=== PATIENT | female | born 1980 | race Caucasian/White ===

== ENCOUNTER → 2021-03-28 12:48 | Outpatient (CLI) | payer BC, SELFPAY ==
--- NOTE | ~2021-03-28 | MM_ITS ---
EXAMINATION: MM screening ruby BI w ruchi HISTORY: Screening TECHNIQUE: Craniocaudal and mediolateral oblique 3-D tomosynthesis images were obtained and synthetic 2-D images were generated. CAD analysis was submitted and interpreted. COMPARISON: No prior mammogram is available for comparison at this institution. BREAST PARENCHYMAL COMPOSITION: Breast composed of scattered areas of fibroglandular density. FINDINGS: There is a 1 cm mass in the outer aspect of the right breast, best seen on CC view. There i s a focal asymmetry centrally in the left breast on CC view. IMPRESSION: 1. Right breast mass, lateral aspect on CC view measuring 1 cm. Left breast asymmetry centrally on CC view. 2. Additional mammographic views and possible breast ultrasound are recommended. BI-RADS Category 0: Incomplete: Needs additional imaging evaluation. Reviewed, dictated and finalized at location A. IMPRESSION: 1. Right breast mass, lateral aspect on CC view measuring 1 cm. Left breast asy mmetry centrally on CC view. 2. Additional mammographic views and possible breast ultrasound are recommended . BI-RADS Category 0: Incomplete: Needs additional imaging evaluation.
== END ==
PROVIDERS: Visit Provider Nurse Practitioner
DX: Z12.31 Encounter for screening mammogram for malignant neoplasm of breast (principal); R92.8 Other abnormal and inconclusive findings on diagnostic imaging of breast
CPT/HCPCS: 77063; 77067

== ENCOUNTER → 2021-04-24 09:25 | Outpatient (CLI) | payer BC, SELFPAY ==
--- NOTE | ~2021-04-24 | MMUS_ITS ---
EXAMINATION: MM diagnostic ruby BI w ruchi, US breast BI complete HISTORY: 1 cm mass reported in upper outer aspect of right breast, best demonstrated on craniocaudal view of 03/28/2021 screening mammogram. Focal central asymmetry of left breast on craniocaudal view of 03/28/2021. TECHNIQUE: Additional 3-D tomosynthesis images of both breasts were performed and synthetic 2-D image s were generated. CAD analysis was submitted and interpreted. High resolution complete bilateral divine st ultrasound including all 4 quadrants and subareolar areas was performed. COMPARISON: 03/28/2021 bilateral digital screening mammogram FINDINGS: MAMMOGRAPHIC FINDINGS: No suspicious reproducible mass of either breast is evident. No architectural distortion, malignant c alcification, skin thickening or retraction is detected. ULTRASOUND: Right breast: 12:00 5 cm from nipple: 4.1 x 6.9 x 6.9 mm cyst 9:00 7 cm from nipple: 4.9 x 4.8 x 5.8 mm cyst with through transmission posterior enhancement 11:00 4 cm from nipple: 12 x 7 x 10 mm circumscribed multilocular cyst without internal vascularity o r posterior shadowing Left breast: 3-4:00 8 cm from nipple: There is an irregular and typed parallel hypoechoic approximately 3.8 x 3.4 mm lesion with some posterior shadowing. Ultrasound-guided biopsy is recommended. 4:00 6 cm from nipple: Complex mixed cystic and solid mass measuring 11 x 6 x 14 mm, with internal va scularity. Ultrasound-guided biopsy is recommended. IMPRESSION: 1. Suspicious masses of the left breast at 3-4:00 8 cm from nipple and 4:00 6 cm from nipple 2. Ultrasound-guided biopsy of these 2 left breast lesions is recommended BI-RADS category 4, suspicious findings. Dr. Stanford telephoned the report and ultrasound guided biopsy recommendations for the left breast to Dr Alice Arroyo's Nurse Kelly on 04/24/2021 at 1105 hours Reviewed, dictated and finalized at location A. IMPRESSION: 1. Suspicious masses of the left breast at 3-4:00 8 cm from nipple and 4:00 6 c m from nipple 2. Ultrasound-guided biopsy of these 2 left breast lesions is recommended BI-RADS category 4, suspicious findings. Dr. Stanford telephoned the report and ultrasound guided biopsy recommendations for the left breast to Dr. Arroyo's Nurse Kelly on 04/24/2021 at 1105 hours
== END ==
PROVIDERS: PCP Nurse Practitioner Family; Visit Provider Obstetrics & Gynecology Gynecology
DX: R92.8 Other abnormal and inconclusive findings on diagnostic imaging of breast (principal)
CPT/HCPCS: 76641; 77062; 77066; G0279

== ENCOUNTER 2021-05-08 09:42 | Outpatient (CLI) | payer BC, SELFPAY ==
--- NOTE | ~2021-05-08 | MM_ITS ---
MM post biopsy invasive LT DATE: 05/08/2021 11:08 INDICATION: Post ultrasound-guided biopsy mammogram TECHNIQUE: Digital ML and craniocaudal exposures following ultrasound-guided biopsy of 4:00 breast ma ss COMPARISON: 05/08/2021 ultrasound-guided left breast biopsy FINDINGS: A ribbon mammographic marker is present not far from the midline in the lower outer quadran t of left breast. IMPRESSION: Status post ultrasound-guided biopsy of left breast 4:00 lesion Reviewed, dictated and finalized at [facility]. Reviewed, dictated and finalized at location A. OR T[employer]RARIAN
--- NOTE | ~2021-05-08 | US_ITS ---
EXAMINATION: US GUIDED NEEDLE BIOPSY DATE: 05/08/2021 10:49 DROP FORGE HAND INDICATION: 4:00 complex left breast mass TECHNIQUE AND FINDINGS: Initial scanning confirmed the presence of an up to approximately 6.7 x 13 mm complex mass with internal vascularity at 4:00 6 cm from nipple. The previous reported irregular hypoechoic area at 3:00 is not confirmed on the sixth examination. The risks and potential benefits of the procedure were discussed with the patient, and written inform ed consent was obtained. Timeout procedure was performed. After sterile preparation of the left breas t, 1% lidocaine was utilized for local anesthesia. A 14G spring-loaded biopsy gun needle was advanced to the edge of the region of interest from a later al approach utilizing sonographic guidance. A total of three tissue core samples were obtained throu gh the lesion. An Inrad tissue marker clip was then placed at the biopsy site. Hemostasis was achiev ed. A sterile bandage was applied. The patient tolerated procedure well and there was no evidence of immediate complication. The patien t was given verbal instructions prior to departing from the department. A two view mammogram was perf ormed to document tissue marker clip placement. The tissue samples were submitted to surgical patholo gy for histologic analysis. IMPRESSION: 1. Successful ultrasound guided biopsy of complex left 4:00 breast mass with biopsy marker placement . Please refer to pathology report for histologic analysis. Reviewed, dictated and finalized at [facility]. Reviewed, dictated and finalized at location A. FORGE HAND IMPRESSION: 1. Successful ultrasound guided biopsy of complex left 4:00 breast mass with b iopsy marker placement. Please refer to pathology report for histologic analysi s.
== END 2021-05-08 09:43 | disposition home or self-care (01) ==
LOC: ANHIMG 09:47
PROVIDERS: PCP Nurse Practitioner Family; Visit Provider Surgery
DX: N63.20 Unspecified lump in the left breast, unspecified quadrant (principal); R92.8 Other abnormal and inconclusive findings on diagnostic imaging of breast
CPT/HCPCS: 19083; 88305; A4648

== ENCOUNTER → 2022-04-19 14:58 | Outpatient (CLI) | payer BC, SELFPAY ==
--- NOTE | ~2022-04-19 | XR_ITS ---
EXAMINATION: XR ankle RT min 3V, XR heel RT min 2V, XR foot RT min 3V DATE: 04/19/2022 15:32 INDICATION: Right heel pain TECHNIQUE: 1. Anteroposterior, mortise, additional oblique and lateral view of the affected ankle were obtained. 2. Dorsoplantar, two oblique and lateral views of the affected foot were obtained. 3. Lateral and axial views of the right calcaneus were obtained. COMPARISON: None. FINDINGS: Alignment of the right foot and ankle is normal. No fracture or osteochondral lesion. Joint spaces ar e well maintained. Moderate sized plantar calcaneal spur. No ankle joint effusion. The soft tissues a re unremarkable. IMPRESSION: 1. Moderate-sized right plantar calcaneal spur. Otherwise unremarkable radiographs of the right foot, ankle and calcaneus. Reviewed, dictated and finalized at location A. IMPRESSION: 1. Moderate-sized right plantar calcaneal spur. Otherwise unremarkable radiogra phs of the right foot, ankle and calcaneus. IMPRESSION: 1. Moderate-sized right plantar calcaneal spur. Otherwise unremarkable radiogra phs of the right foot, ankle and calcaneus.
== END ==
PROVIDERS: PCP Nurse Practitioner Family; Visit Provider Nurse Practitioner Family
DX: M77.31 Calcaneal spur, right foot (principal); M79.671 Pain in right foot
CPT/HCPCS: 73610; 73630; 73650

== ENCOUNTER 2022-09-13 09:45 | Emergency (ER) | payer BC, SELFPAY ==
--- NOTE | ~2022-09-13 | XR_ITS ---
EXAMINATION: XR abdomen/kub 1V DATE: 09/13/2022 11:47 INDICATION: Left kidney stone. TECHNIQUE: A supine view of the abdomen on 2 radiographs was obtained. COMPARISON: CT abdomen and pelvis 09/13/2022 FINDINGS: There are no dilated loops of bowel. Surgical clips in the right upper quadrant are likely from cholecystectomy. There are phleboliths in the pelvis. There is a 5 mm stone or pair of stones in proximal left ureter at L2-L3. IMPRESSION: 1. 5 mm stone or pair of stones in proximal left ureter at L2-L3. Reviewed, dictated and finalized at location A.
--- NOTE | ~2022-09-13 | CT_ITS ---
Non-contrast CT scan of the Abdomen and Pelvis Clinical indication: Left flank pain Technique: 2.5 mm axial scans were obtained through the abdomen and pelvis without intravenous or or al contrast. Dose reduction technique was used on this scan by utilizing automated exposure control a nd iterative reconstruction technique. The dose-length product (DLP) was 1549.38 mGy-cm. COMPARISON: 02/19/2014 Findings: Images through the lung bases reveal no abnormalities. There is a 5 mm stone in the proximal left ureter, with mild left hydronephrosis. No right renal or r ight ureteral stone. No right hydronephrosis. The liver, spleen, pancreas, and adrenals appear normal. Cholecystectomy clips are present. There is no aortic aneurysm. There is no evidence of bowel obstruction. Normal appendix. Images through the pelvis were performed. There is no evidence of ascites or lymphadenopathy. 3.5 cm right ovarian cyst present. Urinary bladder unremarkable. Impression: 5 mm proximal left ureteral stone with mild left hydronephrosis. 3.5 cm right ovarian cyst. Reviewed, dictated and finalized at [facility]. Impression: 5 mm proximal left ureteral stone with mild left hydronephrosis. 3.5 cm right ovarian cyst.
[2022-09-13 09:59] VITALS: BP 164/100; PULSE 78; RESP 18; TEMP 36.4; O2SAT 99
[2022-09-13 10:18] LABS: Basophils Percent Auto 0.3 % (0.2-1.2); Eosinophils Absolute Auto 0.2 K/mm3 (0-0.3); Eosinophils Percent Auto 2.1 % (0-4.4); Hematocrit 41.6 % (37.0-47.0); Hemoglobin 13.7 g/dL (12.0-15.0); Immature Granulocyte Absolute 0.03 K/mm3 (0.00-0.031); Immature Granulocyte Percent A 0.3 % (0-0.5); Lymphocytes Absolute Auto 1.98 K/mm3 (0.9-3.2); Lymphocytes Percent Auto 19.8 % (18.3-44.2); Mean Corpuscular HGB Conc 32.9 g/dl (32-36); Mean Corpuscular Hemoglobin 31.3 pg (26-34); Mean Platelet Volume 10.7 fl (7.4-10.4); Monocytes Absolute Auto 0.7 K/mm3 (0.1-0.6); Monocytes Percent Auto 6.9 % (2.6-8.5); Neutrophils Percent Auto 70.6 % (45.5-73.1); Platelet Count Result 255 k/mm3 (150-375); Red Blood Count 4.38 M/mm3 (4.2-5.4); Red Cell Distribution Width 12.4 % (11.5-14.5)
[2022-09-13 10:28] LABS: Alanine Aminotransferase 19 U/L (6-35); Albumin Level 4.2 g/dL (3.5-5.1); Alkaline Phosphatase 69 U/L (38-126); Anion Gap 4 mmol/L (8-16); Aspartate Amino Transferase 21 U/L (14-36); Bilirubin,Total 0.5 mg/dL (0.2-1.3); Blood Urea Nitrogen 11 mg/dL (7-17); Calcium 8.8 mg/dL (8.4-10.2); Carbon Dioxide 28 mmol/L (22-30); Chloride 103 mmol/L (98-107); Estimated CRCL calculation 100 ml/min; Estimated Glomerular Filt Rate > 60; Glucose 113 mg/dL (65-110); Lipase 151 U/L (23-300); Potassium 4.2 mmol/L (3.4-5.0); Sodium 135 mmol/L (137-145)
--- NOTE | 2022-09-13 10:50 | ED.GENADULT ---
HPI - General Adult General Chief complaint: Abdominal Pain Stated complaint: left abdominal pain & Nausea Time Seen by Provider: 09/13/22 10:26 History of Present Illness HPI narrative: Patient is a 42-year-old female who presents ER with left flank pain. Sudden onset tonight. Symptoms nausea. No vomiting. History of kidney stones. No known injury to the back. No diarrhea. No alleviating factors. Related Data Home Medications Medication Instructions Recorded Confirmed cholecalciferol (vitamin D3) 25 25 mcg PO DAILY 04/30/21 05/03/21 mcg (1,000 unit) capsule norethindrone acetate 1.5 1 tablet PO DAILY 04/30/21 05/03/21 mg-ethinyl estradiol 30 mcg tablet (Microgestin) Allergies Allergy/AdvReac Type Severity Reaction Status Date / Time No Known Allergies Allergy Unknown Verified 09/13/22 09:46 Review of Systems Review of Systems: All systems reviewed & are unremarkable except as noted in HPI and below Constitutional: Constitutional: Denies chills, Denies fatigue and Denies fever(s) ENT: Denies nasal congestion and Denies sore throat Cardiovascular: Cardiovascular: Denies chest pain, Denies rapid heart rate and Denies radiating jaw, neck or arm pain Respiratory: Respiratory: Denies cough and Denies dyspnea Gastrointestinal: Gastrointestinal: Reports abdominal pain, Reports nausea and Denies vomiting Genitourinary: Genitourinary: Denies hematuria, Denies nocturia, Denies dysuria and Reports flank pain PMFSH Past Medical History Medical History GERD (gastroesophageal reflux disease) Kidney stones Surgical History Surgical History History of cholecystectomy History of extraction of renal calculus Family History Family History Father Hypertension Mother Breast cancer Grandparent Breast cancer Diabetes mellitus Social History Social History Smoking status: Never smoker Alcohol intake: current Alcohol use details: socially Living arrangements: alone Occupation/Education: occupation 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 HEAD: Normocephalic, atraumatic. EYES: PERRL and EOMI. ENT: Mucous membranes moist. CHEST: Clear to auscultation. No respiratory distress. HEART: Regular rate and rhythm. Normal peripheral pulses. ABDOMEN: Soft, nontender, nondistended. No CVA tenderness. EXTREMITIES: Normal range of motion. No edema. NEURO: Alert and oriented x3. PSYCH: Normal mood and affect. Course Course Emergency Course: Patient made aware of diagnosis and treatment plan. Renal function normal. Pain improved with morphine. Discussed case with urology as we are going into a week and she is at risk for bounce back. Stone is visible on KUB. Discharge home with [place]/Zofran/Flomax. Will give one-time dose of Toradol before discharge. Vital Signs Vital signs: Vital Signs Temperature 97.6 F 09/13/22 09:59 Pulse Rate 78 09/13/22 09:59 Respiratory Rate 18 09/13/22 09:59 Blood Pressure 164/100 H 09/13/22 09:59 Pulse Oximetry 99 09/13/22 09:59 Oxygen Delivery Room Air 09/13/22 09:59 Temperature 97.6 F 09/13/22 09:59 Pulse Rate 78 09/13/22 12:38 Respiratory Rate 16 09/13/22 12:38 Blood Pressure 153/98 H 09/13/22 12:38 Pulse Oximetry 100 09/13/22 12:38 Oxygen Delivery Room Air 09/13/22 09:59 Medical Decision Making Vital Signs Vital Signs: Vital Signs Temperature 97.6 F 09/13/22 09:59 Pulse Rate 78 09/13/22 09:59 Respiratory Rate 18 09/13/22 09:59 Blood Pressure 164/100 H 09/13/22 09:59 Pulse Oximetry 99 09/13/22 09:59 Oxygen Delivery Room Air 09/13/22 09:59
[2022-09-13 10:55] LABS: Appearance Urine Turbid (Clear); Bacteria Urine 1+ /hpf; Bilirubin Urine Negative (Negative); Blood Urine 3+ (Negative); Calcium Oxalate Crystals Urine Present /hpf; Color Urine Dark Yellow (Yellow); Glucose Urine UA Negative (Negative); Ketones Urine Negative (Negative); Leukocyte Esterase Ur 1+ LEU/UL (Negative); Nitrate Urine Negative (Negative); Non Pathogenic Casts 0-2; Protein Urine 2+ mg/dL (Negative); RBC Urine >100 /hpf (0-2); Specific Grav Ur 1.022 (1.001-1.035); Squamous Epithelial Cell Urine Occasional /hpf (Few); Urobilinogen Urine 0.2 mg/dL (<2.0)
[2022-09-13] MEDS: MORPHINE SULFATE (*CRX) 4 MG/ML INJ IV PUSH (11:09)
[2022-09-13] MEDS: SODIUM CHLORIDE 0.9% IV 1,000 ML 999 ML IV CONT (11:09)
[2022-09-13] MEDS: ONDANSETRON INJ 4 MG/2 ML VIAL IV PUSH (11:09)
[2022-09-13 11:15] LABS: Add Urine Microscopic? YES
[2022-09-13] MEDS: KETOROLAC 30 MG/ML VIAL (*BKC) IV PUSH (12:37)
[2022-09-13 12:38] VITALS: BP 153/98; PULSE 78; RESP 16; O2SAT 100
== END 2022-09-13 12:45 | disposition home or self-care (01) ==
PROVIDERS: Emergency Medicine; Emergency Provider Emergency Medicine; PCP Nurse Practitioner Family
DX: N13.2 Hydronephrosis with renal and ureteral calculous obstruction (principal); K21.9 Gastro-esophageal reflux disease without esophagitis; Z87.442 Personal history of urinary calculi
CPT/HCPCS: 36415; 74018; 74176; 80053; 81001; 81025; 83690; 85025; 87086; 96361; 96374; 96375; 99284; J1885; J2270; J2405; J7030

== ENCOUNTER → 2023-04-17 10:09 | Outpatient (CLI) | payer BC, SELFPAY ==
--- NOTE | ~2023-04-17 | MM_ITS ---
EXAMINATION: MM screening [facility] BI w ruchi HISTORY: Screening TECHNIQUE: Craniocaudal and mediolateral oblique 3-D tomosynthesis images were obtained and synthetic 2-D images were generated. CAD analysis was submitted and interpreted. COMPARISON: Comparison to multiple prior studies sequentially, with oldest reviewed study dated 03/28. BREAST PARENCHYMAL COMPOSITION: There are scattered areas of fibroglandular density. FINDINGS: There is no evidence of suspicious mass, calcification, or architectural distortion to sugg est malignancy in either breast. There has been no suspicious interval change. IMPRESSION: 1. No mammographic evidence of malignancy. 2. Recommend routine screening mammography in one year. BI-RADS Category 1: Negative Reviewed, dictated and finalized at location A.
== END ==
PROVIDERS: PCP Obstetrics & Gynecology Gynecology; Visit Provider Obstetrics & Gynecology Gynecology
DX: Z12.31 Encounter for screening mammogram for malignant neoplasm of breast (principal)
CPT/HCPCS: 77063; 77067

== ENCOUNTER 2024-02-21 11:56 | Inpatient (IN) | payer BC, SELFPAY ==
[2024-02-21] VITALS (8 sets, daily range): BP systolic 121–152; BP diastolic 82–104; PULSE 80–120; RESP 16–18; TEMP 36.3–36.6; O2SAT 95–100; BMI 39.1
--- NOTE | ~2024-02-21 | CT_ITS ---
EXAMINATION: CT abdomen pelvis w con DATE: 02/21/2024 15:47 INDICATION: diffuse abd pain, worse L sided, N/V TECHNIQUE: Computed tomography (CT) of the abdomen and pelvis was performed with 100 mL Omnipaque-350 intravenous contrast. Automated exposure control and iterative reconstruction technique were employe d. The dose-length product was 1396.61 mGy-cm. COMPARISON: 09/13/2022. FINDINGS: Lower thorax: Unremarkable Liver: Normal. Biliary/Gallbladder: Gallbladder is absent. Mild intrahepatic and extra hepatic bile duct dilation. T he common duct measures 8 mm at the eun hepatis. Pancreas: No mass or duct dilation. Spleen: Normal. Adrenals:No mass. Kidneys: No suspicious mass, obstructing stone, or hydronephrosis. GI tract: Dilated small bowel in the mid abdomen with long segment severe wall edema, vasa recta rupesh a, and mild interloop fluid. No focal transition point. No large bowel dilation. Normal appendix. Div erticulosis without diverticulitis. Mesentery/Peritoneum: Mild perihepatic and perisplenic fluid. Retroperitoneum: No mass. Pelvis: Normal urinary bladder, uterus, and bilateral ovaries. Small volume free pelvic fluid.. Soft Tissues: Soft tissues and body wall unremarkable. Bones: No acute osseous finding. IMPRESSION: Mild intrahepatic and extrahepatic bile duct dilation, may be secondary to cholecystectomy. Consider other etiologies if biliary labs abnormalities are present. Mid small bowel ileus with long segment wall edema that may reflect infectious, inflammatory, or isch emic enteritis. Obstruction is not excluded, although no obstructing lesion or focal transition point point is identified. Small volume ascites. Reviewed, dictated and finalized at location K. IMPRESSION: Mild intrahepatic and extrahepatic bile duct dilation, may be secondary to chol ecystectomy. Consider other etiologies if biliary labs abnormalities are presen t. Mid small bowel ileus with long segment wall edema that may reflect infectious, inflammatory, or ischemic enteritis. Obstruction is not excluded, although no obstructing lesion or focal transition point point is identified. Small volume ascites.
--- NOTE | ~2024-02-21 | XR_ITS ---
EXAMINATION: XR sm bowel follow through [facility] DATE: 02/23/2024 15:22 INDICATION: Ileus TECHNIQUE: Floor Layer Apprentice radiograph(s) of the abdomen was/were obtained. Oral contrast was administered, and sequential radiographs of the abdomen were obtained until oral contrast was noted to be in the proxi mal colon. Spot fluoroscopic images of the small bowel were obtained. Fluoroscopy exposure time was 0 .3 minutes. COMPARISON: CT dated 02/21/2024 FINDINGS: Cholecystectomy clips in the right upper quadrant. Transit time from the stomach to proximal colon wa s approximately 3 hours and 15 minutes. Normal caliber of the small bowel with no dilated bowel to kenny ggest obstruction. There is a mild smooth mucosal fold thickening involving a few of the loops of dis valente ileum in the right lower quadrant appears to correspond to the loops demonstrating edematous wall thickening on the prior CT. IMPRESSION: 1. Bowel wall and significant mucosal fold thickening involving multiple loops of ileum in the right lower quadrant. This would be consistent with an enteritis which could be due to infection, inflamma tory bowel disease or ischemia such as vasculitis. Reviewed, dictated and finalized at location A. IMPRESSION: 1. Bowel wall and significant mucosal fold thickening involving multiple loops of ileum in the right lower quadrant. This would be consistent with an enteriti s which could be due to infection, inflammatory bowel disease or ischemia such as vasculitis.
--- NOTE | 2024-02-21 13:08 | PC.NURSE ---
family reported that the pt passed out when going to see pt, she was laying across a chair with eye closed. chest was noted to have equal chest rise and fall. pt was given slight sternal rub. eyes immediately opened. pt was a/o. repeat VS were taken. HR 118 RR 18 O2 100 % RA BP 144/102
--- NOTE | 2024-02-21 14:43 | ED.ABDPAIN ---
HPI - Abdominal Pain General Chief Complaint: Abdominal Pain <Eloise Yanes PA-C - Last Filed: 02/21/24 21:24> Stated Complaint: abd pain <VANIA Brink Last Filed: 02/21/24 21:24> Time Seen by Provider: 02/21/24 14:29 <Eloise Yanes PA-C - Last Filed: 02/21/24 21:24> Source: patient <VANIA Brink Last Filed: 02/21/24 21:24> Mode of arrival: ambulatory <VANIA Brink Last Filed: 02/21/24 21:24> Limitations: no limitations <VANIA Brink Last Filed: 02/21/24 21:24> History of Present Illness HPI narrative: patient is a 44-year-old female who presents the ED with report of abdominal pain. Patient reports she began feeling mildly nauseous with some left-sided abdominal pain yesterday. Pain became worse around 230 a.m. and is now diffusely throughout her abdomen. Described as a constant dull ache with intermittent sharp stabbing pains. She reports persistent nausea, few episodes of emesis, chills. Denies diarrhea, constipation, fevers. Denies cough or cold symptoms. Denies bad food exposure. Denies family members with similar symptoms. Has not taken anything for pain today. <VANIA Brink Last Filed: 02/21/24 21:24> Related Data Home Medications: Home Medications Medication Instructions Recorded Confirmed cholecalciferol (vitamin D3) 25 25 mcg PO DAILY 04/30/21 05/03/21 mcg (1,000 unit) capsule norethindrone acetate 1.5 1 tablet PO DAILY 04/30/21 05/03/21 mg-ethinyl estradiol 30 mcg tablet (Microgestin) <VANIA Brink Last Filed: 02/21/24 21:24> Allergies/Adverse Reactions: Allergies Allergy/AdvReac Type Severity Reaction Status Date / Time No Known Allergies Allergy Unknown Verified 09/13/22 09:46 <Eloise Yanes PA-C - Last Filed: 02/21/24 21:24> Review of Systems Review of Systems: All systems reviewed & are unremarkable except as noted in HPI. <Eloise Yanes PA-C - Last Filed: 02/21/24 21:24> All systems reviewed & are unremarkable except as noted in HPI and below <Eloise Yanes PA-C - Last Filed: 02/21/24 21:24> [facility] Past Medical History Medical History: Medical History GERD (gastroesophageal reflux disease) Kidney stones <Eloise Yanes PA-C - Last Filed: 02/21/24 21:24> Surgical History Surgical History: Surgical History History of cholecystectomy History of extraction of renal calculus <Eloise Yanes PA-C - Last Filed: 02/21/24 21:24> Family History Family History: Family History Father Hypertension Mother Breast cancer Grandparent Breast cancer Diabetes mellitus <Eloise Yanes PA-C - Last Filed: 02/21/24 21:24> Social History Social History: Social History Smoking status: Never smoker Alcohol intake: current Alcohol use details: socially Living arrangements: alone Occupation/Education: occupation 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 HEAD: Normocephalic, atraumatic. RESPIRATORY: Airway patent, respirations nonlabored. Clear to auscultation bilaterally, no rales, rhonchi, wheezing. CARDIOVASCULAR: Tachycardic with regular rhythm without murmurs, rubs, or gallops. ABDOMINAL: Soft, diffuse tenderness throughout abdomen, worse throughout left upper and left lower quadrants. Nondistended. Normoactive BS. MUSCULOSKELETAL: Moves all extremities. No gross deformities. SKIN: Warm, dry,
[2024-02-21] MEDS: MORPHINE SULFATE (*CRX) 4 MG/ML INJ IV PUSH (14:57)
[2024-02-21] MEDS: FAMOTIDINE 20 MG/2 ML VIAL IV PUSH (14:57)
[2024-02-21] MEDS: SODIUM CHLORIDE 0.9% IV 1,000 ML 999 ML IV CONT ×2 (14:58→16:33)
[2024-02-21] MEDS: ONDANSETRON INJ 4 MG/2 ML VIAL IV PUSH ×2 (14:58→17:44)
[2024-02-21 15:01] LABS: Basophils Percent Auto 0.1 % (0.2-1.2); Eosinophils Percent Auto 0.1 % (0-4.4); Hematocrit 47.3 % (37.0-47.0); Hemoglobin 16.2 g/dL (12.0-15.0); Immature Granulocyte Absolute 0.05 K/mm3 (0.00-0.031); Immature Granulocyte Percent A 0.4 % (0-0.5); Lymphocytes Absolute Auto 1.11 K/mm3 (0.9-3.2); Lymphocytes Percent Auto 8.1 % (18.3-44.2); Mean Corpuscular HGB Conc 34.2 g/dl (32-36); Mean Corpuscular Hemoglobin 32.1 pg (26-34); Mean Corpuscular Volume 93.7 fl (80-100); Mean Platelet Volume 11.1 fl (7.4-10.4); Monocytes Absolute Auto 0.4 K/mm3 (0.1-0.6); Monocytes Percent Auto 2.7 % (2.6-8.5); Neutrophils Absolute Auto 12.1 K/mm3 (1.3-6.7); Neutrophils Percent Auto 88.6 % (45.5-73.1); Platelet Count Result 266 k/mm3 (150-375); Red Blood Count 5.05 M/mm3 (4.2-5.4); Red Cell Distribution Width 12.3 % (11.5-14.5); White Blood Count 13.7 K/mm3 (4.5-10.0)
[2024-02-21 15:11] LABS: Alanine Aminotransferase 32 U/L (6-35); Albumin Level 4.3 g/dL (3.5-5.1); Alkaline Phosphatase 83 U/L (38-126); Anion Gap 13 mmol/L (4-12); Aspartate Amino Transferase 34 U/L (14-36); Bilirubin,Total 0.8 mg/dL (0.2-1.3); Blood Urea Nitrogen 10 mg/dL (7-17); Calcium 9.3 mg/dL (8.4-10.2); Carbon Dioxide 21 mmol/L (22-30); Chloride 103 mmol/L (98-107); Estimated CRCL calculation 100 ml/min; Estimated Glomerular Filt Rate > 60; Glucose 108 mg/dL (65-110); Lipase 104 U/L (23-300); Potassium 4.4 mmol/L (3.4-5.0); Sodium 137 mmol/L (137-145)
[2024-02-21 15:37] LABS: Influenza A QL RT-PCR Negative (Negative); Influenza B QL RT-PCR Negative (Negative); RSV RNA, RT-PCR Negative (Negative); SARS-CoV-2 RNA PCR Negative (Negative)
[2024-02-21 15:41] LABS: BEDSIDEPREGUCG Negative
[2024-02-21 16:49] LABS: Add Urine Microscopic? YES; Appearance Urine Clear (Clear); Bacteria Urine 3+ /hpf; Bilirubin Urine Negative (Negative); Blood Urine Negative (Negative); Color Urine Yellow (Yellow); Glucose Urine UA Negative (Negative); Ketones Urine 2+ mg/dL (Negative); Leukocyte Esterase Ur Negative LEU/UL (Negative); Nitrate Urine Negative (Negative); Non Pathogenic Casts 0-2; Protein Urine Trace mg/dL (Negative); RBC Urine 0-2 /hpf (0-2); Specific Grav Ur > 1.045 (1.001-1.035); Squamous Epithelial Cell Urine Occasional /hpf (Few); Urobilinogen Urine 0.2 mg/dL (<2.0); WBC Urine 0-5 /hpf (0-3); pH Urine 6.5 (5.0-9.0)
[2024-02-21] MEDS: HYDROmorphone HCL INJ (*CRX) 1 MG/ML SYR 0.5 MG IV PUSH ×2 (17:44→20:18)
[2024-02-21] MEDS: metroNIDAZOLE 500 MG/ISO 100ML 500 MG/100 ML BAG 100 MG IVPB (17:44)
[2024-02-21 18:07] LABS: Lactic Acid Reflex 0.9 mmol/L (0.7-2.0)
--- NOTE | 2024-02-21 19:30 | PM.IMHP ---
H&P: HPI History of Present Illness Date/Time: 02/21/24 19:30 Chief Complaint: abdominal pain Narrative: This is a 44-year-old female with past medical history significant for obesity, hypertension, allergies. Patient comes to the emergency room due to up episode of abdominal pain, constipation, nausea, vomiting abdominal distension. Preliminary workup was significant for CT of abdomen and pelvis with small bowel ileus. Patient has been admitted for further evaluation management and treatment. EXAMINATION: CT abdomen pelvis w con DATE: 02/21/2024 15:47 INDICATION: diffuse abd pain, worse L sided, N/V TECHNIQUE: Computed tomography (CT) of the abdomen and pelvis was performed with 100 mL Omnipaque-350 intravenous contrast. Automated exposure control and iterative reconstruction technique were employed. The dose-length product was 1396.61 mGy-cm. COMPARISON: 09/13/2022. FINDINGS: Lower thorax: Unremarkable Liver: Normal. Biliary/Gallbladder: Gallbladder is absent. Mild intrahepatic and extra hepatic bile duct dilation. The common duct measures 8 mm at the eun hepatis. Pancreas: No mass or duct dilation. Spleen: Normal. Adrenals:No mass. Kidneys: No suspicious mass, obstructing stone, or hydronephrosis. GI tract: Dilated small bowel in the mid abdomen with long segment severe wall edema, vasa recta edema, and mild interloop fluid. No focal transition point. No large bowel dilation. Normal appendix. Diverticulosis without diverticulitis. Mesentery/Peritoneum: Mild perihepatic and perisplenic fluid. Retroperitoneum: No mass. Pelvis: Normal urinary bladder, uterus, and bilateral ovaries. Small volume free pelvic fluid.. Soft Tissues: Soft tissues and body wall unremarkable. Bones: No acute osseous finding. IMPRESSION: Mild intrahepatic and extrahepatic bile duct dilation, may be secondary to cholecystectomy. Consider other etiologies if biliary labs abnormalities are present. Mid small bowel ileus with long segment wall edema that may reflect infectious, inflammatory, or ischemic enteritis. Obstruction is not excluded, although no obstructing lesion or focal transition point point is identified. Small volume ascites. Review of Systems Review of Systems: abdominal pain, PMFSH Past Medical History Medical History (Updated 02/21/24 @ 23:13 by Ana Vickers MD) GERD (gastroesophageal reflux disease) Kidney stones Surgical History Surgical History History of cholecystectomy History of extraction of renal calculus Family History Family History Father Hypertension Mother Breast cancer Grandparent Breast cancer Diabetes mellitus Social History Social History Smoking status: Never smoker Alcohol intake: never Alcohol use details: socially Substance use: never Do You Feel Safe in your Home?: Yes Lack of Transportation: No Lack of Food: Never True Current Housing: I Have Housing Concerned About Future Housing: No Difficulty Paying Gas/Electric Bills: No Difficulty Paying for Meds: No Currently Unemployed: No Education: Associate Degree Difficulty w/ Childcare or Family Care: No Living arrangements: alone Occupation/Education: occupation 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
[2024-02-21] MEDS: diphenhydrAMINE HCl INJ 50 MG/ML VIAL 25 MG IV PUSH (20:18)
[2024-02-21] MEDS: METOCLOPRAMIDE HCL INJ 10 MG/2 ML VIAL IV PUSH (20:19)
--- NOTE | 2024-02-21 22:28 | ADMGEN ---
This patient, Melissa Deluna, was admitted to [facility] Surg Room 324-01. Patient/family oriented to hospital policies and general routines including ID bracelet, bed and alarms, visiting hours, pain management, procedures, bathroom and other care routines, personal items, smoking policy, room service/diet, and visiting hours. Information on how to activate the Rapid Response Team has been discussed. Patient/Family are encouraged to report perceived risks to care and to ask questions if they do not understand what they are told or what they should do.
[2024-02-22] MEDS: MORPHINE SULFATE (*CRX) 4 MG/ML INJ IV PUSH ×6 (00:02→20:37)
[2024-02-22] MEDS: ONDANSETRON INJ 4 MG/2 ML VIAL IV PUSH ×4 (00:03→20:37)
[2024-02-22] MEDS: SODIUM CHLORIDE 0.9% IV 1,000 ML 125 ML IV CONT ×4 (00:07→20:42)
[2024-02-22] MEDS: metroNIDAZOLE 500 MG/ISO 100ML 500 MG/100 ML BAG 100 MG IVPB ×3 (03:25→17:51)
[2024-02-22 05:37] VITALS: BP 174/91; PULSE 92; RESP 16; TEMP 36.7; O2SAT 96
--- NOTE | 2024-02-22 11:14 | WPDCN ---
Assessment and Plan Assessment and plan (1) Enteritis: Code(s): K52.9 - Noninfective gastroenteritis and colitis, unspecified Status: Acute Assessment and Plan: Patient made the hospital with abdominal pain and CT scan shows likely small-bowel enteritis. Likely has an ileus to the enteritis. Mechanical obstruction is seen on CT scan. Etiology could be due to infectious cause, planned bowel disease such as Crohn's disease, and likely ischemic disease. Patient has been started on some IV antibiotics which [place] [address] [place]. Supportive management for now. Hydrate with IV fluids. No acute surgical abdomen. Will follow. (2) Ileus: Code(s): K56.7 - Ileus, unspecified Status: Acute HPI Data of Consult Date/Time: 02/22/24 11:14 Requesting Physician: Nahomy Burkett PA-C Primary Care Provider: Ada Arroyo MD Consult Narrative Reason for consult: Abdominal pain, small-bowel ileus Narrative: Melissa Deluna is a 44 year old female presents to the emergency room last evening complaining of abdominal pain associated episodes of nausea vomiting. Her last bowel movement was the day prior. It was normal for her without any blood. She did say that for the preceding 2 to 3 days to that last bowel movement she did have some diarrhea. She denied having any exotic foods for dinner. No other family members are house are sick. Her son ingested the same foods she did and has not had the symptoms. In the emergency room she had a normal white blood cell count. CT scan abdomen pelvis was performed showing thickening a segment of mid small bowel without transition point suggested possible small bowel enteritis and ileus. Today she continues to have some mild diffuse abdominal pain. She denies any flatus or bowel movements. No nausea however. White blood cell count is slightly elevated at 13,700 now. She denies any history of prior pain like this in the past. There is no family history of inflammatory bowel disease. Her only abdominal surgery previously was laparoscopic cholecystectomy greater than 20 years ago. The patient is taking Wegovy for medically induced weight loss. She started this about 4 months ago has not had any symptoms of pain nausea soon after starting this medications. Review of Systems Review of Systems: The remainder of the review of systems to include constitutional, HEENT, cardiovascular, respiratory, GI, , integumentary, musculoskeletal, endocrine, immunologic, hematologic, psychiatric, and neurologic are all negative except for which is mentioned above in the HPI. [facility] Past Medical History Medical History GERD (gastroesophageal reflux disease) Kidney stones Surgical History Surgical History History of cholecystectomy History of extraction of renal calculus Family History Family History Father Hypertension Mother Breast cancer Grandparent Breast cancer Diabetes mellitus Social History Social History Smoking status: Never smoker Alcohol intake: never Alcohol use details: socially Substance use: never Do You Feel Safe in your Home?: Yes Lack of Transportation: No Lack of Food: Never True Current Housing: I Have Housing Concerned About Future Housing: No Difficulty Paying Gas/Electric Bills: No Difficulty Paying for Meds: No Currently Unemployed: No Education: Associate Degree Difficulty w/ Childcare or Family Care: No Living arrangements: alone Occupation/Education: occupation 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
--- NOTE | 2024-02-22 11:49 | PM.IMPN ---
Progress Note: A&P Assessment and Plan (1) Ileus: Code(s): K56.7 - Ileus, unspecified Status: Acute Assessment and Plan: Possibly due to infectious cause, bowel disease such as Crohn's disease, or ischemic disease. - CT abd/pelvis: Mild intrahepatic and extrahepatic bile duct dilation, may be secondary to cholecystectomy. Consider other etiologies if biliary labs abnormalities are present. Mid small bowel ileus with long segment wall edema that may reflect infectious, inflammatory, or ischemic enteritis. Obstruction is not excluded, although no obstructing lesion or focal transition point point is identified. Small volume ascites. - antibiotics: rocephin and flagyl started on 02/21 - Surgery consulted: Patient has been started on some IV antibiotics which [place] [id number] [place]. Supportive management for now. Hydrate with IV fluids. No acute surgical abdomen. - Monitor vital signs, I&Os, track stool output, watch for bloody stools, neuro status and patient is a fall risk - Monitor serum electrolytes and CBC - Gentle IV fluid resuscitation (2) GERD (gastroesophageal reflux disease): Code(s): K21.9 - Gastro-esophageal reflux disease without esophagitis Status: Acute Assessment and Plan: Well controlled. - Protonix 40 mg daily - Monitor (3) Hypertension: Code(s): I10 - Essential (primary) hypertension Status: Acute Assessment and Plan: Chronic, continue home medication. - Lisinopril 20 mg daily - Hydralazine 10 mg IV q8 PRN for BP > 180 systolic - Monitor Subjective Date/time seen: 02/22/24 11:49 Interval history: 44 year old female with past medical history of HTN and GERD presents to the hospital complaining of abdominal pain associated episodes of nausea vomiting. Patient is pleasant lying in bed. She continues to endorse abdominal pain, but notes that it feels better when lying on her left side. She states she has not had a BM or passed flatus since last friday. She denies nausea and vomiting. She remains on rocephin and flagyl at this time. She was evaluated by surgery and no acute surgical intervention is required. Patient remains on NPO except ice chips at this time. Review of Systems Review of Systems: All systems reviewed & are unremarkable except as noted in HPI and below Exam Narrative: AF HR 92 RR 16 SpO2 96 BP 174/91 General: female in no acute respiratory distress who is nontoxic appearing, lying semi recumbent in bed. HEENT: Normocephalic. Atraumatic. Extraocular movement intact. Sclera clear and anicteric. Nares patent. No facial asymmetry. Chest: Lungs are clear to auscultation bilaterlly. No wheezes or crackles. CV: Heart was regular rate and rhythm. S1-S2. No murmurs, gallops, or rubs. Abd: Abdomen was soft. tenderness to the lower portion of the abdomen and the epigastric region. Nondistended. hypoactive bowel sounds. No organomegaly or masses. Ext: No clubbing, cyanosis, or edema. 2+ DP pulses bilaterally. Psych: Normal nood and affect. Patient is pleasant and cooperative. Skin: Warm and dry. No rashes noted. Objective Data Vital Signs Vital Signs: Vital Signs - 24 hr 02/21/24 11:57 02/21/24 15:00 02/21/24 16:00 Temperature 97.4 F L 97.6 F 97.9 F Pulse Rate 120 H 89 96 Respiratory Rate 18 16 16 Blood Pressure 152/104 H 150/101 H 121/101 H Pulse Oximetry 98 100 100 Oxygen Delivery 02/21/24 17:00 02/21/24 18:25 02/21/24 20:16 Temperature 97.9 F 97.6 F Pulse Rate 80 88 103 H Respiratory Rate 16 16 18 Blood Pressure 151/89 H 142/82 H 149/93 H Pulse Oximetry 100 100 98 Oxygen Delivery 02/21/24 21:38 02/21/24 22:00 02/22/24 00:32 Temperature 97.5 F L Pulse Rate 93 103 H Respiratory Rate 16 18 Blood Pressure 152/88 H 148/92 H Pulse Oximetry 95 97 Oxygen Delivery Room Air 02/22/24 05:37 02/22/24 09:15 Temperature 98.1 F Pulse Rate 92 Respiratory Rate 16 B
[2024-02-22 15:36] VITALS: TEMP 37
[2024-02-22 21:33] VITALS: BP 148/83; PULSE 86; RESP 18; TEMP 36.5; O2SAT 99
[2024-02-23] MEDS: metroNIDAZOLE 500 MG/ISO 100ML 500 MG/100 ML BAG 100 MG IVPB ×3 (02:15→18:05)
[2024-02-23] MEDS: ONDANSETRON INJ 4 MG/2 ML VIAL IV PUSH (05:59)
[2024-02-23 06:00] VITALS: BP 146/91; PULSE 87; RESP 16; TEMP 37.1; O2SAT 99
[2024-02-23] MEDS: MORPHINE SULFATE (*CRX) 4 MG/ML INJ IV PUSH (06:01)
[2024-02-23] MEDS: SODIUM CHLORIDE 0.9% IV 1,000 ML 125 ML IV CONT ×2 (06:06→19:51)
--- NOTE | 2024-02-23 07:32 | PM.IMPN ---
Progress Note: A&P Assessment and Plan (1) Ileus: Code(s): K56.7 - Ileus, unspecified Status: Acute Assessment and Plan: Possibly due to infectious cause, bowel disease such as Crohn's disease, or ischemic disease. - CT abd/pelvis: Mild intrahepatic and extrahepatic bile duct dilation, may be secondary to cholecystectomy. Consider other etiologies if biliary labs abnormalities are present. Mid small bowel ileus with long segment wall edema that may reflect infectious, inflammatory, or ischemic enteritis. Obstruction is not excluded, although no obstructing lesion or focal transition point point is identified. Small volume ascites. - antibiotics: rocephin and flagyl started on 02/21 - Surgery consulted: Patient has been started on some IV antibiotics which [place] [address] [place]. Supportive management for now. Hydrate with IV fluids. Seems to be a fairly long segment in the distal jejunum and possible ileum. Recommend getting a GI consult to evaluate for inflammatory bowel disease. No surgical intervention at this time. - GI consulted Small bowel follow through ordered, results pending. Stool studies and labs to check for inflammatory markers (crohns, [place]) - Monitor vital signs, I&Os, track stool output, watch for bloody stools, neuro status and patient is a fall risk - Monitor serum electrolytes and CBC - Gentle IV fluid resuscitation (2) GERD (gastroesophageal reflux disease): Code(s): K21.9 - Gastro-esophageal reflux disease without esophagitis Status: Acute Assessment and Plan: Well controlled. - Protonix 40 mg daily - Monitor (3) Hypertension: Code(s): I10 - Essential (primary) hypertension Status: Acute Assessment and Plan: Chronic, continue home medication. Patients blood pressure is intermittently high likely related to her pain. Will continue to monitor and adjust if needed. - Lisinopril 20 mg daily - Hydralazine 10 mg IV q8 PRN for BP > 180 systolic - Monitor Plan Diet: NPO with ice chips DVT ppx: lovenox Code: Full Disposition: history of HTN and GERD presents to the hospital complaining of abdominal pain associated episodes of nausea vomiting. Patient notes that she has not had a BM since last friday, 02/12. CT shows Mid small bowel ileus with long segment wall edema that may reflect infectious, inflammatory, or ischemic enteritis. Surgery consulted and no intervention needed at this time. She remains on flagyl/rocephin. GI consulted and small bowel follow through and stool/labs obtained for inflammatory disease (crohns/UC) Time Spent With Patient Time with patient: 25 - 35 minutes Subjective Date/time seen: 02/23/24 07:32 Interval history: 44 year old female with past medical history of HTN and GERD presents to the hospital complaining of abdominal pain associated episodes of nausea vomiting. Patient is pleasant lying in bed. She had just returned from her small bowel follow through and read is pending. She states she had a large episode of emesis after drinking the prep for the image. She continues to endorse mild nausea but denies vomiting since that time. She has had 2 episodes of flatus, but denies BM. She denies chest pain, shortness of breath, and changes in bladder. Review of Systems Review of Systems: All systems reviewed & are unremarkable except as noted in HPI and below Exam Narrative: AF HR 87 RR 16 Spo2 99 BP 146/91 General: female in no acute respiratory distress who is nontoxic appearing, lying semi recumbent in bed. HEENT: Normocephalic. Atraumatic. Extraocular movement intact. Sclera clear and anicteric. Nares patent. No facial asymmetry. Chest: Lungs are clear to auscultation bilaterlly. No wheezes or crackles. CV: Heart was regular rate and rhythm. S1-S2. No murmurs, gallops, or rubs. Abd: Abdomen was soft. tenderness to the lower portion of the abdomen. Nondistended. hypoactive bowel sounds. No o
[2024-02-23 08:01] LABS: Basophils Percent Auto 0.2 % (0.2-1.2); Eosinophils Absolute Auto 0.1 K/mm3 (0-0.3); Eosinophils Percent Auto 1.4 % (0-4.4); Hematocrit 40.8 % (37.0-47.0); Hemoglobin 13.4 g/dL (12.0-15.0); Immature Granulocyte Absolute 0.03 K/mm3 (0.00-0.031); Immature Granulocyte Percent A 0.3 % (0-0.5); Lymphocytes Absolute Auto 1.45 K/mm3 (0.9-3.2); Mean Corpuscular HGB Conc 32.8 g/dl (32-36); Mean Corpuscular Hemoglobin 31.6 pg (26-34); Mean Corpuscular Volume 96.2 fl (80-100); Mean Platelet Volume 11.1 fl (7.4-10.4); Monocytes Absolute Auto 0.6 K/mm3 (0.1-0.6); Neutrophils Absolute Auto 6.8 K/mm3 (1.3-6.7); Neutrophils Percent Auto 75.1 % (45.5-73.1); Platelet Count Result 211 k/mm3 (150-375); Red Blood Count 4.24 M/mm3 (4.2-5.4); Red Cell Distribution Width 12.3 % (11.5-14.5); White Blood Count 9.1 K/mm3 (4.5-10.0)
[2024-02-23] MEDS: PANTOPRAZOLE 40 MG TABLET PO (08:22)
[2024-02-23] MEDS: CHOLECALCIFEROL 1,000 UNITS TABLET 1000 UNITS PO (08:22)
[2024-02-23] MEDS: lisinopriL 20 MG TABLET PO (08:22)
[2024-02-23 08:23] LABS: Alanine Aminotransferase 96 U/L (6-35); Albumin Level 3.5 g/dL (3.5-5.1); Alkaline Phosphatase 94 U/L (38-126); Anion Gap 9 mmol/L (4-12); Aspartate Amino Transferase 131 U/L (14-36); Bilirubin,Total 1.1 mg/dL (0.2-1.3); Blood Urea Nitrogen 8 mg/dL (7-17); Carbon Dioxide 22 mmol/L (22-30); Chloride 103 mmol/L (98-107); Estimated CRCL calculation 111 ml/min; Estimated Glomerular Filt Rate > 60; Glucose 83 mg/dL (65-110); Potassium 3.8 mmol/L (3.4-5.0); Sodium 134 mmol/L (137-145)
[2024-02-23] MEDS: ENOXAPARIN 40 MG/0.4 ML SYRINGE SUB-Q (08:24)
--- NOTE | 2024-02-23 09:55 | WPDPN ---
Progress Note: A&P Assessment and Plan (1) Enteritis: Code(s): K52.9 - Noninfective gastroenteritis and colitis, unspecified Status: Acute Assessment and Plan: Small-bowel enteritis. This seems to be a fairly long segment in the distal jejunum and possible ileum. Plan for care bowel disease such as Crohn's disease is in the differential. Recommend getting a GI consult to evaluate for inflammatory bowel disease. Otherwise continue NPO for now and supportive management. There is no high-grade obstruction requiring urgent surgical management at this time. Subjective Date/time seen: 02/23/24 09:55 Interval history: Patient stated his pain is better but she still having quite a bit of nausea. No emesis. No flatus or bowel movement. White blood count is normalized now. No fevers or tachycardia. Exam GI: Other: Abdomen is still mildly tender in the bilateral lower quadrants. No peritoneal signs. Minimal distention is noted. No masses. Objective Data Vital Signs Vital Signs: Vital Signs - 24 hr 02/22/24 15:36 02/22/24 21:33 02/23/24 06:00 Temperature 37.0 C 36.5 C 37.1 C Pulse Rate 86 87 Respiratory Rate 18 16 Blood Pressure 148/83 H 146/91 H Pulse Oximetry 99 99 Intake/Output Intake/Output: Intake & Output 02/20/24 02/21/24 02/22/24 02/23/24 23:59 23:59 23:59 23:59 Intake Total 2150 2347.9 1000 Balance 2150 2347.9 1000 Meds/Results Medications: Active Medications Generic Name Dose Route Start Last Admin Trade Name Freq PRN Reason Stop Dose Admin Acetaminophen 650 mg 02/21/24 19:48 Acetaminophen 650 Mg Suppository RECTAL Q6H PRN Mild Pain (1-3) or Fever Dextrose 12.5 gm 02/21/24 19:48 Dextrose 50% 25 Gm/50 Ml Syringe IV PUSH PRN PRN Hypoglycemia Protocol Enoxaparin Sodium 40 mg 02/23/24 09:00 02/23/24 08:24 Enoxaparin 40 Mg/0.4 Ml Syringe SUB-Q 40 mg DAILY CODY Administration Glucagon 1 mg 02/21/24 19:48 Glucagon For Inj 1 Mg Vial IM PRN PRN Hypoglycemia Protocol Glucose 15 gm 02/21/24 19:48 Glucose Oral Gel 15 Gm Of Glucse In 37.5 Gm Tube PO PRN PRN Hypoglycemia Protocol Hydralazine HCl 10 mg 02/22/24 17:56 Hydralazine Hcl 20 Mg/Ml Vial IV PUSH Q8H PRN Blood Pressure - High Ceftriaxone Sodium 1 gm in 50 mls @ 100 mls/hr 02/22/24 18:00 02/22/24 17:23 Rocephin 1 Gm/Ns 50 Ml IVPB 100 mls/hr Q24H CODY Administration Metronidazole 500 mg in 100 mls @ 100 mls/hr 02/22/24 02:00 02/23/24 02:15 Flagyl 500 Mg/Iso Soln 100 Ml IVPB 100 mls/hr Q8H CODY Administration Sodium Chloride 1,000 mls @ 125 mls/hr 02/21/24 19:50 02/23/24 06:06 Normal Saline Iv IV CONT 125 mls/hr .Q8H CODY Administration Dextrose 1,000 mls @ 100 mls/hr 02/21/24 19:48 Dextrose 5% 1,000 Ml IVPB PRN PRN Hypoglycemia Protocol Lisinopril 20 mg 02/23/24 09:00 02/23/24 08:22 Lisinopril 20 Mg Tablet PO 20 mg DAILY CODY Administration Miscellaneous Information 1 each 02/23/24 00:01 Order Clarification XX 03/24/24 00:00 CLARIFY CODY Morphine Sulfate 4 mg 02/21/24 19:48 02/23/24 06:01 Morphine Sulfate (*Crx) 4 Mg/Ml Inj IV PUSH 4 mg Q2H PRN Administration Pain Rated 7-10 Ondansetron HCl 4 mg 02/21/24 19:48 02/23/24 05:59 Ondansetron Inj 4 Mg/2 Ml Vial IV PUSH 4 mg Q4H PRN Administration Nausea Pantoprazole Sodium 40 mg 02/23/24 09:00 02/23/24 08:22 Pantoprazole 40 Mg Tablet PO 40 mg QAM CODY Administration Vitamin D 1,000 units 02/23/24 09:00 02/23/24 08:22 Cholecalciferol 1,000 Units Tablet PO 1,000 units DAILY CODY Administration Radiology Results: ITS Impressions Abdomen/Pelvis CT 02/21/24 15:59 IMPRESSION: Mild intrahepatic and extrahepatic bile duct dilation, may be secondary to cholecystectomy. Consider other etiologies if biliary labs abnormalities are p
--- NOTE | 2024-02-23 10:11 | P.CONGI_ITS ---
I, Sharif Duff MD, have provided a substantive portion of the care of this patient and discussed the patient with my Nurse Practitioner. I have reviewed any new relevant radiographic and laboratory results including medications. I agree with her documentation as noted below.?I personally performed the medical decision making and much of the history and exam for this encounter. briefly, here with new onset of acute lower abdominal pain and n/v (normally she does not have GI issues)- had colonoscopy 20 years because of hemorrhoids though. She is normally healthy, only surgery is GB. CT scan showed ileus with possible enteritis. She is feeling better now, passing gas (no BM since she got sick on Friday) with less nausea and less pain. Plan is SBFT, unlikely IBD because acute onset, probably infections/adhesions, etc. Advance diet when less symptomatic. Will monitor, probably colonoscopy as outpatient once she is fully recovered. Assessment and Plan Assessment and plan (1) Ileus: Code(s): K56.7 - Ileus, unspecified Status: Acute (2) Enteritis: Code(s): K52.9 - Noninfective gastroenteritis and colitis, unspecified Status: Acute (3) Lower abdominal pain: Code(s): R10.30 - Lower abdominal pain, unspecified Status: Acute (4) Nausea and vomiting: Qualifiers: Vomiting type: bilious vomiting Qualified Code(s): R11.14 - Bilious vomiting Code(s): R11.2 - Nausea with vomiting, unspecified Status: Acute (5) Elevated liver transaminase level: Code(s): R74.01 - Elevation of levels of liver transaminase levels Status: Acute Plan 1. Lower abdominal pain/Nausea/Vomiting/change in bowel habits-constipation/abnormal imaging digestive: Last colonoscopy was in 2003 which patient states revealed hemorrhoids but was otherwise unremarkable, endoscopy records not available today's visit. Patient reports sharp, cramping pain that started in left lower quadrant and moved to right side, now dull. No bowel movements since admission. Admits to intermittent nausea and vomiting. Nausea improves with antiemetics and last episode of vomiting according to the patient was when she was in the emergency room. Per patient her last bowel movement was Friday around 6:00 p.m. which was formed. Patient has been on Wegovy times for months and did notice a decrease in bowel frequency but she thought this may be related to decreased p.o. intake. She does admit to appetite loss, intentional weight loss, and early satiety since starting Wegovy. Denies family Hx of IBD and patient denies any prior chronic GI issues. CT shows mid small bowel ileus with wall edema, possible enteritis. Differential includes small bowel obstruction, medication side effect (patient on GLP-1 agonist), infectious or inflammatory process. * Small bowel follow through ordered * If imaging shows improvement will start patient on a bowel regimen with Miralax 1-2 times daily * Stool studies and labs to check for inflammatory markers (Crohn's disease, ulcerative colitis) * Continue ABX 2. Elevated liver transaminase: Acute transaminase elevation. LFT's were normal on admission. today's labs showed total bilirubin 1.1, AST 31, ALT 96, alkaline phosphatase 94 and lipase 104. No known history of liver disease. * Likely acute elevation secondary to medications * Primary care team to continue monitoring * will hold off on liver workup at this time unless levels continue to increase Thank you very much for allowing me to share in the care of this very nice patient. This report may have been done utilizing a voice jovanny
--- NOTE | 2024-02-23 10:11 | WPDGICN ---
Assessment and Plan Assessment and plan (1) Ileus: Code(s): K56.7 - Ileus, unspecified Status: Acute (2) Enteritis: Code(s): K52.9 - Noninfective gastroenteritis and colitis, unspecified Status: Acute (3) Lower abdominal pain: Code(s): R10.30 - Lower abdominal pain, unspecified Status: Acute (4) Nausea and vomiting: Qualifiers: Vomiting type: bilious vomiting Qualified Code(s): R11.14 - Bilious vomiting Code(s): R11.2 - Nausea with vomiting, unspecified Status: Acute (5) Elevated liver transaminase level: Code(s): R74.01 - Elevation of levels of liver transaminase levels Status: Acute Plan 1. Lower abdominal pain/Nausea/Vomiting/change in bowel habits-constipation/abnormal imaging digestive: Last colonoscopy was in 2003 which patient states revealed hemorrhoids but was otherwise unremarkable, endoscopy records not available today's visit. Patient reports sharp, cramping pain that started in left lower quadrant and moved to right side, now dull. No bowel movements since admission. Admits to intermittent nausea and vomiting. Nausea improves with antiemetics and last episode of vomiting according to the patient was when she was in the emergency room. Per patient her last bowel movement was Friday around 6:00 p.m. which was formed. Patient has been on Wegovy times for months and did notice a decrease in bowel frequency but she thought this may be related to decreased p.o. intake. She does admit to appetite loss, intentional weight loss, and early satiety since starting Wegovy. Denies family Hx of IBD and patient denies any prior chronic GI issues. CT shows mid small bowel ileus with wall edema, possible enteritis. Differential includes small bowel obstruction, medication side effect (patient on GLP-1 agonist), infectious or inflammatory process. Small bowel follow through ordered If imaging shows improvement will start patient on a bowel regimen with Miralax 1-2 times daily Stool studies and labs to check for inflammatory markers (Crohn's disease, ulcerative colitis) Continue ABX 2. Elevated liver transaminase: Acute transaminase elevation. LFT's were normal on admission. today's labs showed total bilirubin 1.1, AST 31, ALT 96, alkaline phosphatase 94 and lipase 104. No known history of liver disease. Likely acute elevation secondary to medications Primary care team to continue monitoring will hold off on liver workup at this time unless levels continue to increase Thank you very much for allowing me to share in the care of this very nice patient. This report may have been done utilizing a voice recognition system. Attempts have been made to correct errors. However, there may be uncorrected grammatical, spelling, and recognition errors present. GI Consult Note Consult date/time: 02/23/24 10:11 Reason for consult: small-bowel enteritis HPI: This is a pleasant 44-year-old female with a past medical surgical history of obesity, HTN, and cholecystectomy. She presented to the ER room 02/21/2024 with complaints of abdominal pain and distention, constipation, nausea and vomiting. GI consulted for small bowel enteritis. Patient reports onset of symptoms on Friday morning (02/21/2024). Nausea was the first symptom, followed by sharp, cramping pain in the left lower quadrant that later moved to the right side. Pain has since become dull. No bowel movements since admission. One episode of vomiting in the ER, normal in color. Reports abdominal bloating. Denies difficult or painful swallowing. No reflux currently, though had it in the past. Reports decreased appetite, early satiety and weight loss of about 14 pounds over the last 4 months, which she attributes to Wegovy which she started 4 months ago. Last bowel movement was Friday and was formed and non urgent. Admits to looser stool normally before her periods. Denies blood in stool or black stools. Per richard
[2024-02-23 14:00] VITALS: BP 152/91; PULSE 81; RESP 14; TEMP 37; O2SAT 100
[2024-02-23] MEDS: ACETAMINOPHEN 325 MG TABLET 650 MG PO (19:47)
[2024-02-23 22:00] VITALS: BP 173/86; PULSE 87; RESP 20; TEMP 36.9; O2SAT 98
[2024-02-24] MEDS: metroNIDAZOLE 500 MG/ISO 100ML 500 MG/100 ML BAG 100 MG IVPB ×3 (01:39→17:48)
[2024-02-24 06:00] VITALS: BP 150/92; PULSE 94; RESP 18; TEMP 36.3; O2SAT 97
--- NOTE | 2024-02-24 06:16 | PM.OBPRVD ---
OB - Vaginal Delivery Note Procedure Delivery date: 02/24/24 Induction method: Per Misoprostol Protocol Delivery monitor: External FHT and Internal Uterine [place] Baby Date of : 02/24/24 Gestational Age by Date: 39 presentation: vertex
--- NOTE | 2024-02-24 08:05 | PM.IMPN ---
Progress Note: A&P Assessment and Plan (1) Ileus: Code(s): K56.7 - Ileus, unspecified Status: Acute Assessment and Plan: Possibly due to infectious cause, bowel disease such as Crohn's disease, or ischemic disease. - CT abd/pelvis: Mild intrahepatic and extrahepatic bile duct dilation, may be secondary to cholecystectomy. Consider other etiologies if biliary labs abnormalities are present. Mid small bowel ileus with long segment wall edema that may reflect infectious, inflammatory, or ischemic enteritis. Obstruction is not excluded, although no obstructing lesion or focal transition point point is identified. Small volume ascites. - Small bowel follow through: Bowel wall and significant mucosal fold thickening involving multiple loops of ileum in the right lower quadrant. This would be consistent with an enteritis which could be due to infection, inflammatory bowel disease or ischemia such as vasculitis. - Stool studies and labs to check for inflammatory markers (crohns, [place]): pending - antibiotics: rocephin and flagyl started on 02/21 - Monitor vital signs, I&Os, track stool output, watch for bloody stools, neuro status and patient is a fall risk - Monitor serum electrolytes and CBC - Diet: full liquids, advance as tolerated - Gentle IV fluid resuscitation - Surgery consulted: Patient has been started on some IV antibiotics [place] [id number] [place]. Supportive management for now. Hydrate with IV fluids. Seems to be a fairly long segment in the distal jejunum and possible ileum. Recommend getting a GI consult to evaluate for inflammatory bowel disease. No surgical intervention at this time. - GI consulted Unlikely IBD because acute onset, probably infections/adhesions, etc. Advance diet when less symptomatic. Will monitor, probably colonoscopy as outpatient once she is fully recovered. (2) GERD (gastroesophageal reflux disease): Code(s): K21.9 - Gastro-esophageal reflux disease without esophagitis Status: Acute Assessment and Plan: Well controlled. - Protonix 40 mg daily - Monitor (3) Hypertension: Code(s): I10 - Essential (primary) hypertension Status: Acute Assessment and Plan: Chronic, continue home medication. Patients blood pressure is intermittently high likely related to her pain. Will continue to monitor and adjust if needed. - Lisinopril 20 mg daily - Hydralazine 10 mg IV q8 PRN for BP > 180 systolic - Monitor Plan Diet: NPO with ice chips DVT ppx: lovenox Code: Full Disposition: History of HTN and GERD presents to the hospital complaining of abdominal pain associated episodes of nausea vomiting. Patient notes that she has not had a BM since last friday, 02/12. CT shows Mid small bowel ileus with long segment wall edema that may reflect infectious, inflammatory, or ischemic enteritis. Surgery consulted and no intervention needed at this time. She remains on flagyl/rocephin. GI consulted and small bowel follow through and stool/labs obtained for inflammatory disease (crohns/UC), findings more consistent with enteritis. Patient tolerating clears will advance as tolerated. She has had one bowel movement. Time Spent With Patient Time with patient: 25 - 35 minutes Subjective Date/time seen: 02/24/24 08:05 Interval history: 44 year old female with past medical history of HTN and GERD presents to the hospital complaining of abdominal pain associated episodes of nausea vomiting. Patient is pleasant lying in bed. She continues to endorse abdominal pain more so in the umbilical region. She is tolerating her clear diet well, will advance to full and continue to advance as tolerated. Patient has had one loose bowel movement. She is slightly lightheaded when ambulating. She denies chest pain, shortness of breath, and palpitations. Review of Systems Review of Systems: All systems reviewed & are unremarkable except as noted in HPI and below
[2024-02-24 08:45] LABS: Basophils Percent Auto 0.3 % (0.2-1.2); Eosinophils Absolute Auto 0.2 K/mm3 (0-0.3); Hemoglobin 13.3 g/dL (12.0-15.0); Immature Granulocyte Absolute 0.03 K/mm3 (0.00-0.031); Immature Granulocyte Percent A 0.3 % (0-0.5); Lymphocytes Percent Auto 15.2 % (18.3-44.2); Mean Corpuscular HGB Conc 33.3 g/dl (32-36); Mean Corpuscular Hemoglobin 31.5 pg (26-34); Mean Corpuscular Volume 94.8 fl (80-100); Mean Platelet Volume 11.3 fl (7.4-10.4); Monocytes Absolute Auto 0.7 K/mm3 (0.1-0.6); Monocytes Percent Auto 7.7 % (2.6-8.5); Neutrophils Absolute Auto 6.9 K/mm3 (1.3-6.7); Neutrophils Percent Auto 74.5 % (45.5-73.1); Platelet Count Result 209 k/mm3 (150-375); Red Blood Count 4.22 M/mm3 (4.2-5.4); Red Cell Distribution Width 12.1 % (11.5-14.5); White Blood Count 9.2 K/mm3 (4.5-10.0)
[2024-02-24] MEDS: CHOLECALCIFEROL 1,000 UNITS TABLET 1000 UNITS PO (09:01)
[2024-02-24] MEDS: lisinopriL 20 MG TABLET PO (09:01)
[2024-02-24] MEDS: PANTOPRAZOLE 40 MG TABLET PO (09:01)
[2024-02-24] MEDS: ENOXAPARIN 40 MG/0.4 ML SYRINGE SUB-Q (09:01)
[2024-02-24 09:08] LABS: Alanine Aminotransferase 135 U/L (6-35); Albumin Level 3.8 g/dL (3.5-5.1); Alkaline Phosphatase 111 U/L (38-126); Anion Gap 13 mmol/L (4-12); Aspartate Amino Transferase 106 U/L (14-36); Bilirubin,Total 0.6 mg/dL (0.2-1.3); Blood Urea Nitrogen 7 mg/dL (7-17); Calcium 8.1 mg/dL (8.4-10.2); Carbon Dioxide 20 mmol/L (22-30); Chloride 101 mmol/L (98-107); Estimated CRCL calculation 111 ml/min; Estimated Glomerular Filt Rate > 60; Glucose 77 mg/dL (65-110); Potassium 3.7 mmol/L (3.4-5.0); Sodium 134 mmol/L (137-145)
[2024-02-24 14:00] VITALS: BP 148/93; PULSE 102; RESP 18; TEMP 36.6; O2SAT 96
[2024-02-24] MEDS: SODIUM CHLORIDE 0.9% IV 1,000 ML 125 ML IV CONT ×2 (14:02→23:21)
--- NOTE | 2024-02-24 15:25 | WPDPN ---
Progress Note: A&P Assessment and Plan (1) Enteritis: Code(s): K52.9 - Noninfective gastroenteritis and colitis, unspecified Status: Acute Assessment and Plan: Small-bowel enteritis seems to be improving. No evidence of small-bowel obstruction. Etiology of the enteritis include infectious for which she is receiving IV antibiotics. , autoimmune such as Crohn's disease with Crohn's labs ordered by GI , and ischemic disease which is unlikely given her relative young age. No need for surgical intervention. Surgical sign off. No need for out- patient surgical follow-up after discharge. Subjective Date/time seen: 02/24/24 15:25 Interval history: Patient feeling much better today. Much less lower abdominal pain. She had a water-soluble small bowel series yesterday showing no obstructive in the small bowel with some segments of the distal ileum having some wall thickness consistent with the enteritis seen on CT scan. Having multiple bowel movements now. Tolerated clear liquids. Exam GI: Other: Abdomen is soft and nondistended. Minimal tenderness to palpation in lower abdomen now. No guarding or peritoneal signs. Objective Data Vital Signs Vital Signs: Vital Signs - 24 hr 02/23/24 22:00 02/24/24 06:00 02/24/24 09:01 Temperature 36.9 C 36.3 C L Pulse Rate 87 94 Respiratory Rate 20 18 Blood Pressure 173/86 H 150/92 H Pulse Oximetry 98 97 Oxygen Delivery Room Air 02/24/24 14:00 Temperature 36.6 C Pulse Rate 102 H Respiratory Rate 18 Blood Pressure 148/93 H Pulse Oximetry 96 Oxygen Delivery Intake/Output Intake/Output: Intake & Output 02/21/24 02/22/24 02/23/24 02/24/24 23:59 23:59 23:59 23:59 Intake Total 2150 2397.9 2590 2280 Balance 2150 2397.9 2590 2280 Meds/Results Medications: Active Medications Generic Name Dose Route Start Last Admin Trade Name Freq PRN Reason Stop Dose Admin Acetaminophen 650 mg 02/23/24 19:34 02/23/24 19:47 Acetaminophen 325 Mg Tablet PO 650 mg Q6H PRN Administration Mild Pain (1-3) or Fever Dextrose 12.5 gm 02/21/24 19:48 Dextrose 50% 25 Gm/50 Ml Syringe IV PUSH PRN PRN Hypoglycemia Protocol Enoxaparin Sodium 40 mg 02/23/24 09:00 02/24/24 09:01 Enoxaparin 40 Mg/0.4 Ml Syringe SUB-Q 40 mg DAILY CODY Administration Glucagon 1 mg 02/21/24 19:48 Glucagon For Inj 1 Mg Vial IM PRN PRN Hypoglycemia Protocol Glucose 15 gm 02/21/24 19:48 Glucose Oral Gel 15 Gm Of Glucse In 37.5 Gm Tube PO PRN PRN Hypoglycemia Protocol Hydralazine HCl 10 mg 02/22/24 17:56 Hydralazine Hcl 20 Mg/Ml Vial IV PUSH Q8H PRN Blood Pressure - High Ceftriaxone Sodium 1 gm in 50 mls @ 100 mls/hr 02/22/24 18:00 02/23/24 17:48 Rocephin 1 Gm/Ns 50 Ml IVPB Infused Q24H CODY Infusion Metronidazole 500 mg in 100 mls @ 100 mls/hr 02/22/24 02:00 02/24/24 10:01 Flagyl 500 Mg/Iso Soln 100 Ml IVPB Infused Q8H CODY Infusion Sodium Chloride 1,000 mls @ 125 mls/hr 02/21/24 19:50 02/24/24 14:02 Normal Saline Iv IV CONT 125 mls/hr .Q8H CODY Administration Dextrose 1,000 mls @ 100 mls/hr 02/21/24 19:48 Dextrose 5% 1,000 Ml IVPB PRN PRN Hypoglycemia Protocol Lisinopril 20 mg 02/23/24 09:00 02/24/24 09:01 Lisinopril 20 Mg Tablet PO 20 mg DAILY CODY Administration Morphine Sulfate 4 mg 02/21/24 19:48 02/23/24 06:01 Morphine Sulfate (*Crx) 4 Mg/Ml Inj IV PUSH 4 mg Q2H PRN Administration Pain Rated 7-10 Ondansetron HCl 4 mg 02/21/24 19:48 02/23/24 05:59 Ondansetron Inj 4 Mg/2 Ml Vial IV PUSH 4 mg Q4H PRN Administration Nausea Pantoprazole Sodium 40 mg 02/23/24 09:00 02/24/24 09:01 Pantoprazole 40 Mg Tablet PO 40 mg QAM CODY Administration Vitamin D 1,000 units 02/23/24 09:00 02/24/24 09:01 Cholecalciferol 1,000 Units Tablet PO 1,000 units DAILY CODY Admi
--- NOTE | 2024-02-24 17:13 | WPDGIPROGNO ---
Progress Note: A&P Assessment and Plan (1) Enteritis: Code(s): K52.9 - Noninfective gastroenteritis and colitis, unspecified Status: Acute Assessment and Plan: reviewed SBFT, c/w enteritis clinically better and tolerating full liquid diet recommend colonoscopy as outpatient in 4-6 weeks (2) Ileus: Code(s): K56.7 - Ileus, unspecified Status: Acute (3) Lower abdominal pain: Code(s): R10.30 - Lower abdominal pain, unspecified Status: Acute Assessment and Plan: improved (4) Nausea and vomiting: Qualifiers: Vomiting type: bilious vomiting Qualified Code(s): R11.14 - Bilious vomiting Code(s): R11.2 - Nausea with vomiting, unspecified Status: Acute Assessment and Plan: resolved Subjective Date/time seen: 02/24/24 17:13 Interval history: doing much better, less pain, + BM, tolerating liquid diet Review of Systems Review of Systems: All systems reviewed & are unremarkable except as noted in HPI and below Exam Const: General: comfortable and no acute distress HENMT: Face/Nose/Sinus: Normal nares present Eyes: General: appearance normal, both eyes and all related structures Neck: Neck: supple Resp: Auscultation: clear to auscultation bilaterally Cardio: Rate: regular rate Rhythm: regular rhythm GI: Inspection: non-distended GI Palp: Yes Soft to palpation and Yes Tenderness to palpation present (GI) (less tender, no rebound) Auscultation: normal bowel sounds Skin: General skin exam: normal color Neuro: Speech: normal speech Motor exam (neuro): 5/5 motor strength present throughout Extrem: General: normal to inspection Psych: Mental Status: mental status grossly normal Objective Data Vital Signs Vital Signs: Vital Signs - 24 hr 02/23/24 22:00 02/24/24 06:00 02/24/24 09:01 Temperature 98.5 F 97.3 F L Pulse Rate 87 94 Respiratory Rate 20 18 Blood Pressure 173/86 H 150/92 H Pulse Oximetry 98 97 Oxygen Delivery Room Air 02/24/24 14:00 Temperature 97.9 F Pulse Rate 102 H Respiratory Rate 18 Blood Pressure 148/93 H Pulse Oximetry 96 Oxygen Delivery Intake/Output Intake/Output: Intake & Output 02/21/24 02/22/24 02/23/24 02/24/24 23:59 23:59 23:59 23:59 Intake Total 2150 2397.9 2590 2280 Balance 2150 2397.9 2590 2280 Meds/Results Medications: Active Medications Generic Name Dose Route Start Last Admin Trade Name Freq PRN Reason Stop Dose Admin Acetaminophen 650 mg 02/23/24 19:34 02/23/24 19:47 Acetaminophen 325 Mg Tablet PO 650 mg Q6H PRN Administration Mild Pain (1-3) or Fever Dextrose 12.5 gm 02/21/24 19:48 Dextrose 50% 25 Gm/50 Ml Syringe IV PUSH PRN PRN Hypoglycemia Protocol Enoxaparin Sodium 40 mg 02/23/24 09:00 02/24/24 09:01 Enoxaparin 40 Mg/0.4 Ml Syringe SUB-Q 40 mg DAILY CODY Administration Glucagon 1 mg 02/21/24 19:48 Glucagon For Inj 1 Mg Vial IM PRN PRN Hypoglycemia Protocol Glucose 15 gm 02/21/24 19:48 Glucose Oral Gel 15 Gm Of Glucse In 37.5 Gm Tube PO PRN PRN Hypoglycemia Protocol Hydralazine HCl 10 mg 02/22/24 17:56 Hydralazine Hcl 20 Mg/Ml Vial IV PUSH Q8H PRN Blood Pressure - High Ceftriaxone Sodium 1 gm in 50 mls @ 100 mls/hr 02/22/24 18:00 02/24/24 17:08 Rocephin 1 Gm/Ns 50 Ml IVPB 100 mls/hr Q24H CODY Administration Metronidazole 500 mg in 100 mls @ 100 mls/hr 02/22/24 02:00 02/24/24 10:01 Flagyl 500 Mg/Iso Soln 100 Ml IVPB Infused Q8H CODY Infusion Sodium Chloride 1,000 mls @ 125 mls/hr 02/21/24 19:50 02/24/24 14:02 Normal Saline Iv IV CONT 125 mls/hr .Q8H CODY Administration Dextrose 1,000 mls @ 100 mls/hr 02/21/24 19:48 Dextrose 5% 1,000 Ml IVPB PRN PRN Hypoglycemia Protocol Lisinopril 20 mg 02/23/24 09:00 02/24/24 09:01 Lisinopril 20 Mg Tablet PO 20 mg DAILY CODY Administrat
[2024-02-24 20:25] VITALS: BP 164/104; PULSE 91; RESP 18; TEMP 37.2; O2SAT 98
[2024-02-24] MEDS: hydrALAZINE HCL 20 MG/ML VIAL 10 MG IV PUSH (21:26)
[2024-02-24] MEDS: ACETAMINOPHEN 325 MG TABLET 650 MG PO (23:22)
[2024-02-24 23:24] VITALS: BP 151/81; PULSE 90; RESP 18; TEMP 36.9; O2SAT 98
[2024-02-24] MEDS: ONDANSETRON INJ 4 MG/2 ML VIAL IV PUSH (23:26)
[2024-02-25] MEDS: metroNIDAZOLE 500 MG/ISO 100ML 500 MG/100 ML BAG 100 MG IVPB (02:00)
[2024-02-25 05:28] VITALS: BP 144/83; PULSE 88; RESP 18; TEMP 36.6; O2SAT 98
[2024-02-25 06:39] LABS: Basophils Percent Auto 0.3 % (0.2-1.2); Eosinophils Absolute Auto 0.3 K/mm3 (0-0.3); Eosinophils Percent Auto 4.1 % (0-4.4); Hematocrit 39.9 % (37.0-47.0); Hemoglobin 13.6 g/dL (12.0-15.0); Immature Granulocyte Absolute 0.04 K/mm3 (0.00-0.031); Immature Granulocyte Percent A 0.5 % (0-0.5); Lymphocytes Absolute Auto 1.91 K/mm3 (0.9-3.2); Lymphocytes Percent Auto 24.6 % (18.3-44.2); Mean Corpuscular HGB Conc 34.1 g/dl (32-36); Mean Corpuscular Hemoglobin 31.8 pg (26-34); Mean Corpuscular Volume 93.2 fl (80-100); Mean Platelet Volume 11.2 fl (7.4-10.4); Monocytes Absolute Auto 0.8 K/mm3 (0.1-0.6); Monocytes Percent Auto 9.7 % (2.6-8.5); Neutrophils Absolute Auto 4.7 K/mm3 (1.3-6.7); Neutrophils Percent Auto 60.8 % (45.5-73.1); Platelet Count Result 231 k/mm3 (150-375); Red Blood Count 4.28 M/mm3 (4.2-5.4); Red Cell Distribution Width 12.3 % (11.5-14.5); White Blood Count 7.8 K/mm3 (4.5-10.0)
[2024-02-25 06:41] LABS: Alanine Aminotransferase 94 U/L (6-35); Albumin Level 3.5 g/dL (3.5-5.1); Alkaline Phosphatase 96 U/L (38-126); Anion Gap 10 mmol/L (4-12); Aspartate Amino Transferase 52 U/L (14-36); Bilirubin,Total 0.3 mg/dL (0.2-1.3); Blood Urea Nitrogen 4 mg/dL (7-17); Calcium 8.6 mg/dL (8.4-10.2); Carbon Dioxide 21 mmol/L (22-30); Chloride 105 mmol/L (98-107); Estimated CRCL calculation 111 ml/min; Estimated Glomerular Filt Rate > 60; Glucose 99 mg/dL (65-110); Potassium 3.4 mmol/L (3.4-5.0); Sodium 136 mmol/L (137-145)
[2024-02-25] MEDS: PANTOPRAZOLE 40 MG TABLET PO (08:21)
[2024-02-25] MEDS: CHOLECALCIFEROL 1,000 UNITS TABLET 1000 UNITS PO (08:21)
[2024-02-25] MEDS: lisinopriL 20 MG TABLET PO (08:22)
[2024-02-25] MEDS: ENOXAPARIN 40 MG/0.4 ML SYRINGE SUB-Q (08:22)
[2024-02-25] MEDS: SODIUM CHLORIDE 0.9% IV 1,000 ML 125 ML IV CONT (08:23)
--- NOTE | 2024-02-25 10:21 | PM.IMPN ---
Progress Note: A&P Assessment and Plan (1) Ileus: Code(s): K56.7 - Ileus, unspecified Status: Acute Assessment and Plan: Possibly due to infectious cause, bowel disease such as Crohn's disease, or ischemic disease. - CT abd/pelvis: Mild intrahepatic and extrahepatic bile duct dilation, may be secondary to cholecystectomy. Consider other etiologies if biliary labs abnormalities are present. Mid small bowel ileus with long segment wall edema that may reflect infectious, inflammatory, or ischemic enteritis. Obstruction is not excluded, although no obstructing lesion or focal transition point point is identified. Small volume ascites. - Small bowel follow through: Bowel wall and significant mucosal fold thickening involving multiple loops of ileum in the right lower quadrant. This would be consistent with an enteritis which could be due to infection, inflammatory bowel disease or ischemia such as vasculitis. - Stool studies and labs to check for inflammatory markers (crohns, [place]): pending - antibiotics: rocephin and flagyl started on 02/21 - Monitor vital signs, I&Os, track stool output, watch for bloody stools, neuro status and patient is a fall risk - Monitor serum electrolytes and CBC - Diet: full liquids, advance as tolerated - Gentle IV fluid resuscitation - Surgery consulted: Patient has been started on some IV antibiotics which [place] [address] [place]. Supportive management for now. Hydrate with IV fluids. Seems to be a fairly long segment in the distal jejunum and possible ileum. Recommend getting a GI consult to evaluate for inflammatory bowel disease. No surgical intervention at this time. - GI consulted Unlikely IBD because acute onset, probably infections/adhesions, etc. Advance diet when less symptomatic. Will monitor, probably colonoscopy as outpatient once she is fully recovered. ' 02/24- surgery signed off non infections enteritis per GI note- since pt lost IV access and actually completed 5 days of antibiotic treatment- ok to stop at this time (2) GERD (gastroesophageal reflux disease): Code(s): K21.9 - Gastro-esophageal reflux disease without esophagitis Status: Acute Assessment and Plan: Well controlled. - Protonix 40 mg daily - Monitor (3) Hypertension: Code(s): I10 - Essential (primary) hypertension Status: Acute Assessment and Plan: Chronic, continue home medication. Patients blood pressure is intermittently high likely related to her pain. Will continue to monitor and adjust if needed. - Lisinopril 20 mg daily - Hydralazine 10 mg IV q8 PRN for BP > 180 systolic - Monitor Plan DVT ppx: lovenox Code: Full Disposition: History of HTN and GERD presents to the hospital complaining of abdominal pain associated episodes of nausea vomiting. Patient notes that she has not had a BM since last friday, 02/12. CT shows Mid small bowel ileus with long segment wall edema that may reflect infectious, inflammatory, or ischemic enteritis. Surgery consulted and no intervention needed at this time. She remains on flagyl/rocephin. GI consulted and small bowel follow through and stool/labs obtained for inflammatory disease (crohns/UC), findings more consistent with enteritis. Patient tolerating clears will advance as tolerated. She has had one bowel movement. Subjective Date/time seen: 02/25/24 10:21 Interval history: Interval history: 44 year old female with past medical history of HTN and GERD presents to the hospital complaining of abdominal pain associated episodes of nausea vomiting. Patient is pleasant lying in bed. She continues to endorse abdominal pain more so in the umbilical region. She is tolerating her clear diet well, will advance to full and continue to advance as tolerated. Patient has had one loose bowel movement. She is slightly lightheaded when ambulating. She denies chest pain, shortness of breath, and palpitations.
[2024-02-25 13:35] VITALS: BP 164/99; PULSE 88; RESP 18; TEMP 36.3; O2SAT 100
--- NOTE | 2024-02-25 15:28 | PM.DS ---
DS: Admitting Diagnosis Discharge Date 02/24 Admitting Diagnosis abd pain DS: Discharge Diagnosis Discharge Diagnosis (1) Ileus: Code(s): K56.7 - Ileus, unspecified Status: Acute Assessment and Plan: Possibly due to infectious cause, bowel disease such as Crohn's disease, or ischemic disease. - CT abd/pelvis: Mild intrahepatic and extrahepatic bile duct dilation, may be secondary to cholecystectomy. Consider other etiologies if biliary labs abnormalities are present. Mid small bowel ileus with long segment wall edema that may reflect infectious, inflammatory, or ischemic enteritis. Obstruction is not excluded, although no obstructing lesion or focal transition point point is identified. Small volume ascites. - Small bowel follow through: Bowel wall and significant mucosal fold thickening involving multiple loops of ileum in the right lower quadrant. This would be consistent with an enteritis which could be due to infection, inflammatory bowel disease or ischemia such as vasculitis. - Stool studies and labs to check for inflammatory markers (crohns, [place]): pending - antibiotics: rocephin and flagyl started on 02/21 - Monitor vital signs, I&Os, track stool output, watch for bloody stools, neuro status and patient is a fall risk - Monitor serum electrolytes and CBC - Diet: full liquids, advance as tolerated - Gentle IV fluid resuscitation - Surgery consulted: Patient has been started on some IV antibiotics which [place] [address] [place]. Supportive management for now. Hydrate with IV fluids. Seems to be a fairly long segment in the distal jejunum and possible ileum. Recommend getting a GI consult to evaluate for inflammatory bowel disease. No surgical intervention at this time. - GI consulted Unlikely IBD because acute onset, probably infections/adhesions, etc. Advance diet when less symptomatic. Will monitor, probably colonoscopy as outpatient once she is fully recovered. (2) GERD (gastroesophageal reflux disease): Code(s): K21.9 - Gastro-esophageal reflux disease without esophagitis Status: Acute Assessment and Plan: protonix (3) Hypertension: Code(s): I10 - Essential (primary) hypertension Status: Acute Assessment and Plan: Chronic, continue home medication. Patients blood pressure is intermittently high likely related to her pain. Will continue to monitor and adjust if needed. - Lisinopril 20 mg daily - Hydralazine 10 mg IV q8 PRN for BP > 180 systolic - Monitor Plan final dx: Noninfective gastroenteritis and colitis DS: Summary Hospital Course Hospital Course: Interval history: 44 year old female with past medical history of HTN and GERD presents to the hospital complaining of abdominal pain associated episodes of nausea vomiting. Patient is pleasant lying in bed. She continues to endorse abdominal pain more so in the umbilical region. She is tolerating her clear diet well, will advance to full and continue to advance as tolerated. Patient has had one loose bowel movement. She is slightly lightheaded when ambulating. She denies chest pain, shortness of breath, and palpitations. 02/24 assuming care. surgery signed off- no f/u is needed doing much better, less pain, + BM, tolerating liquid diet. Stop antibiotics- as non infective gastroenteritis and she already completed 5 days of those anyway, advance diet- if doing well- discharge Status at Discharge Functional status at discharge: independent ambulation Overall status at discharge: patient is back to baseline Time Spent with Patient Time attestation: Total time spent providing and/or coordinating discharge services: Time spent: Less than 30 minutes DS: Data Data Completed and Pending Completed studies during hospitalization: abd pelvis ct, small bowel xray Labs on day of discharge: Labs from last 24 hours 02/25/24 06:20 WBC 7.8 RBC 4.28 Hgb 13.6 Hct 39.9 MCV 9
--- NOTE | 2024-02-25 16:54 | WPDGIPROGNO ---
Progress Note: A&P Assessment and Plan (1) Enteritis: Code(s): K52.9 - Noninfective gastroenteritis and colitis, unspecified Status: Acute Assessment and Plan: reviewed SBFT, c/w enteritis pain is gone and eating will set up colonoscopy as outpatient in 6 weeks (2) Ileus: Code(s): K56.7 - Ileus, unspecified Status: Acute Assessment and Plan: resolved (3) Lower abdominal pain: Code(s): R10.30 - Lower abdominal pain, unspecified Status: Acute Assessment and Plan: improved (4) Nausea and vomiting: Qualifiers: Vomiting type: bilious vomiting Qualified Code(s): R11.14 - Bilious vomiting Code(s): R11.2 - Nausea with vomiting, unspecified Status: Acute Assessment and Plan: resolved Subjective Date/time seen: 02/25/24 16:54 Interval history: pain is gone, tolerated regular diet and going home today Review of Systems Review of Systems: All systems reviewed & are unremarkable except as noted in HPI and below Exam Const: General: comfortable and no acute distress HENMT: Face/Nose/Sinus: Normal nares present Eyes: General: appearance normal, both eyes and all related structures Neck: Neck: no JVD Resp: Auscultation: clear to auscultation bilaterally Cardio: Rate: regular rate Rhythm: regular rhythm GI: Inspection: non-distended GI Palp: Yes Soft to palpation and No Tenderness to palpation present (GI) Auscultation: normal bowel sounds Skin: General skin exam: normal color Neuro: General: gait normal Speech: normal speech Extrem: General: normal to inspection Psych: Mental Status: mental status grossly normal Objective Data Vital Signs Vital Signs: Vital Signs - 24 hr 02/24/24 20:25 02/24/24 23:24 02/25/24 05:28 Temperature 98.9 F 98.5 F 97.8 F Pulse Rate 91 90 88 Respiratory Rate 18 18 18 Blood Pressure 164/104 H 151/81 H 144/83 H Pulse Oximetry 98 98 98 Oxygen Delivery 02/25/24 08:15 02/25/24 13:35 Temperature 97.4 F L Pulse Rate 88 Respiratory Rate 18 Blood Pressure 164/99 H Pulse Oximetry 100 Oxygen Delivery Room Air Intake/Output Intake/Output: Intake & Output 02/22/24 02/23/24 02/24/2402/24/24 23:59 23:59 23:59 23:59 Intake Total 2397.9 2590 3670 1729.5 Balance 2397.9 2590 3670 1729.5 Meds/Results Medications: Active Medications Generic Name Dose Route Start Last Admin Trade Name Freq PRN Reason Stop Dose Admin Acetaminophen 650 mg 02/23/24 19:34 02/24/24 23:22 Acetaminophen 325 Mg Tablet PO 650 mg Q6H PRN Administration Mild Pain (1-3) or Fever Dextrose 12.5 gm 02/21/24 19:48 Dextrose 50% 25 Gm/50 Ml Syringe IV PUSH PRN PRN Hypoglycemia Protocol Enoxaparin Sodium 40 mg 02/23/24 09:00 02/25/24 08:22 Enoxaparin 40 Mg/0.4 Ml Syringe SUB-Q 40 mg DAILY CODY Administration Glucagon 1 mg 02/21/24 19:48 Glucagon For Inj 1 Mg Vial IM PRN PRN Hypoglycemia Protocol Glucose 15 gm 02/21/24 19:48 Glucose Oral Gel 15 Gm Of Glucse In 37.5 Gm Tube PO PRN PRN Hypoglycemia Protocol Hydralazine HCl 10 mg 02/22/24 17:56 02/24/24 21:26 Hydralazine Hcl 20 Mg/Ml Vial IV PUSH 10 mg Q8H PRN Administration Blood Pressure - High Sodium Chloride 1,000 mls @ 125 mls/hr 02/21/24 19:50 02/25/24 11:41 Normal Saline Iv IV CONT 0 mls/hr .Q8H CODY Infusion Dextrose 1,000 mls @ 100 mls/hr 02/21/24 19:48 Dextrose 5% 1,000 Ml IVPB PRN PRN Hypoglycemia Protocol Lisinopril 20 mg 02/23/24 09:00 02/25/24 08:22 Lisinopril 20 Mg Tablet PO 20 mg DAILY CODY Administration Morphine Sulfate 4 mg 02/21/24 19:48 02/23/24 06:01 Morphine Sulfate (*Crx) 4 Mg/Ml Inj IV PUSH 4 mg Q2H PRN Administration Pain Rated 7-10 Ondansetron HCl 4 mg 02/21/24 19:48 02/24/24 23:26 Ondansetron Inj 4 Mg/2 Ml Vial IV PUSH 4 mg Q4H PRN Ad
[2024-02-26 13:30] LABS: ANCA Screen Negative (Negative)
[2024-02-27 22:49] LABS: S cerevisiae Ab (IgA) 10.8 U (<=20.0); S cerevisiae Ab (IgG) 11.1 U (<=20.0)
[2024-02-29 13:09] LABS: Myeloperoxidase Ab <1.0 AI (<1.0); Proteinase-3 Ab <1.0 AI (<1.0)
[2024-02-29 21:40] LABS: Calprotectin, Stool 67 mcg/g
== END 2024-02-25 16:40 | disposition home or self-care (01) | DRG 392 ==
LOC: ANHED 19:32 → ANH3MEDSUR 20:25
PROVIDERS: Nurse Practitioner Family; Student in an Organized Health Care Education/Training Program; Surgery; Admitting Provider Internal Medicine; Emergency Provider Physician Assistant; PCP Obstetrics & Gynecology Gynecology; Visit Provider Nurse Practitioner
DX: K52.9 Noninfective gastroenteritis and colitis, unspecified (principal); K56.7 Ileus, unspecified; Z68.41 Body mass index [BMI] 40.0-44.9, adult; K21.9 Gastro-esophageal reflux disease without esophagitis; E66.01 Morbid (severe) obesity due to excess calories; Z20.822 Contact with and (suspected) exposure to COVID-19; Z87.442 Personal history of urinary calculi
CPT/HCPCS: 36415; 74177; 74250; 80053; 81001; 81025; 83605; 83690; 83735; 83993; 85025; 86036; 86140; 86671; 87637; 96361; 96365; 96366; 96367; 96375; 96376; 99285; A9270; J0360; J0696; J1170; J1200; J1650; J1836; J2270; J2405; J2765; J7030; Q9967

== ENCOUNTER 2024-03-22 02:22 | Day surgery (SDC) | payer BC, SELFPAY ==
[2024-03-11 12:37] VITALS: BMI 38.5
[2024-03-22 10:58] VITALS: BP 148/110; PULSE 103; RESP 17; TEMP 36.1; O2SAT 100; BMI 37.8
[2024-03-22] MEDS: LACTATED RINGERS 1,000 ML 150 ML IV CONT (11:08)
--- NOTE | 2024-03-22 11:28 | WPDANESEPPF ---
Anes - Initial Pre Proc Eval Procedure: Operation Date: 03/22/24 12:30 Proposed Procedures p Colonoscopy - Sharif Duff MD Date/Time: 03/22/24 11:28 Surgeon: Sharif Duff MD Pre Op Diagnosis: personal hx of cancer Patient Data Age: 44 Gender: F Height: 1.68 m Weight: 106.3 kg Last Vital Signs Temp 96.9 F L 03/22/24 10:58 Pulse 103 H 03/22/24 10:58 Resp 17 03/22/24 10:58 BP 148/110 H 03/22/24 10:58 Pulse Ox 100 03/22/24 10:58 O2 Del Method Room Air 03/22/24 10:58 Allergies Allergy/AdvReac Type Severity Reaction Status Date / Time No Known Allergies Allergy Unknown Verified 03/22/24 10:53 Home Medications Medication Instructions Recorded Confirmed Type cholecalciferol (vitamin D3) 25 25 mcg PO DAILY 04/30/21 03/22/24 History mcg (1,000 unit) capsule famotidine 10 mg chewable tablet 10 mg PO BID 02/21/24 03/22/24 History fexofenadine 60 mg tablet (Sadaf 20 mg PO BID 02/21/24 03/22/24 History Allergy) lisinopril 20 mg tablet 40 mg PO DAILY 02/21/24 03/22/24 History meloxicam 15 mg tablet 15 mg PO DAILY PRN Pain 02/21/24 03/22/24 History montelukast 10 mg tablet 10 mg PO DAILY 02/21/24 03/22/24 History semaglutide (weight loss) 0.25 0.5 mg subcut WEEKLY 02/21/24 03/22/24 History mg/0.5 mL subcutaneous pen injector (Wegovy) Sadaf See Rx Instructions .Route .COMPLEX 03/11/24 03/22/24 History Flonase 1 inh intranasal DAILY 03/11/24 03/22/24 History epinephrine 0.3 mg/0.3 mL 0.3 mg subcut DAILY PRN reaction 03/11/24 03/22/24 History injection, auto-injector norethindrone acetate 1.5 1 tablet PO DAILY 03/11/24 03/22/24 History mg-ethinyl estradiol 30 mcg tablet (Yen) Patient hx anesthesia problems: none Family hx anesthesia problems: none Results Review: All pre-operative results and documents have been reviewed as part of the pre-operative evaluation. [facility] Past Medical History Medical History (Updated 02/23/24 @ 11:43 by Josefa Ham APRN) GERD (gastroesophageal reflux disease) Hypertension Kidney stones Surgical History Surgical History History of cholecystectomy History of extraction of renal calculus Family History Family History Father Hypertension Mother Breast cancer Grandparent Breast cancer Diabetes mellitus Social History Social History Smoking status: Former smoker Tobacco type: cigarettes Alcohol intake: current Alcohol use details: socially Substance use: never Substance use type: does not use Do You Feel Safe in your Home?: Yes Lack of Transportation: No Lack of Food: Never True Current Housing: I Have Housing Concerned About Future Housing: No Difficulty Paying Gas/Electric Bills: No Difficulty Paying for Meds: No Currently Unemployed: No Education: Associate Degree Difficulty w/ Childcare or Family Care: No Living arrangements: with family Occupation/Education: occupation 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 Informed Consent: The patient's anesthetic plan and its attendant risks and benefits were discussed with the patient/family/POA. Questions were solicited and answers provided to the satisfaction of the patient/family/POA.
--- NOTE | 2024-03-22 11:41 | WPDHPUPDATE1 ---
History and Physical Update Update Date/Time: 03/22/24 11:41 History and Physical has been reviewed, including an updated exam of the patient. There are NO changes in the patient's condition. Risks, benefits, and alternatives have been discussed and questions answered. Patient agrees to proceed with procedure.
[2024-03-22 11:59] VITALS: BP 124/78; PULSE 81; RESP 18; O2SAT 97
[2024-03-22 12:09] VITALS: BP 129/80; PULSE 78; RESP 15; O2SAT 100
[2024-03-22 12:19] VITALS: BP 126/79; PULSE 79; RESP 16; O2SAT 100
== END 2024-03-22 12:30 | disposition home or self-care (01) ==
PROVIDERS: PCP Family Medicine; Visit Provider Internal Medicine Gastroenterology
PROC: 0DJD8ZZ Inspection of Lower Intestinal Tract, Via Natural or Artificial Opening Endoscopic (ICD-10-PCS; CPT 45378; principal; 2024-03-22 12:30)
DX: Z12.11 Encounter for screening for malignant neoplasm of colon (principal); D12.3 Benign neoplasm of transverse colon; K64.8 Other hemorrhoids; K57.30 Diverticulosis of large intestine without perforation or abscess without bleeding; I10 Essential (primary) hypertension; K21.9 Gastro-esophageal reflux disease without esophagitis; E66.9 Obesity, unspecified; Z68.37 Body mass index [BMI] 37.0-37.9, adult; Z79.85 Long-term (current) use of injectable non-insulin antidiabetic drugs; Z98.890 Other specified postprocedural states; Z90.49 Acquired absence of other specified parts of digestive tract; Z87.891 Personal history of nicotine dependence; Z87.442 Personal history of urinary calculi; Z85.9 Personal history of malignant neoplasm, unspecified; Z80.3 Family history of malignant neoplasm of breast
CPT/HCPCS: 45385; 88305; J2704; J7120

== ENCOUNTER 2024-04-04 10:55 | Emergency (ER) | payer BC, SELFPAY ==
--- NOTE | ~2024-04-04 | CT_ITS ---
EXAMINATION: CT abdomen pelvis w con DATE: 04/04/2024 15:41 INDICATION: Periumbilical and epigastric abd pain TECHNIQUE: Computed tomography (CT) of the abdomen and pelvis was performed [with 100 mL Omnipaque-35 0] intravenous contrast. Automated exposure control and iterative reconstruction technique were emplo yed. The dose-length product was 1490.08 mGy-cm. COMPARISON: 02/21/2024. FINDINGS: Lower thorax: Unremarkable Liver: Enlarged. Biliary/Gallbladder: Gallbladder is absent. Stable mild intra and extrahepatic bile duct dilation, li ted secondary to cholecystectomy. Pancreas: No mass or duct dilation. Spleen: Normal. Adrenals:No mass. Kidneys: No suspicious mass, obstructing stone, or hydronephrosis. GI tract: Mild distal esophageal and gastric wall edema. No large bowel dilation. Multiple loops of l padmini segment, dilated small bowel in the mid and lower abdomen with severe wall edema, interloop fluid , and fat heterogeneity in the vasa recta. No transition point. No free air. No pneumatosis. Symmetri c bowel wall and mucosal enhancement. Normal appendix. Diverticulosis without diverticulitis. Mesentery/Peritoneum: No mass or free air. Moderate volume ascites. Retroperitoneum: No mass. Pelvis: Pelvic organs are within normal limits. Soft Tissues: Soft tissues and body wall unremarkable. Bones: No acute osseous finding. IMPRESSION: Mild esophagitis/gastritis. Hepatomegaly. Mid small bowel ileus with infectious, inflammatory, or ischemic enteritis. Moderate ascites. Reviewed, dictated and finalized at location K.
[2024-04-04 11:17] VITALS: BP 143/107; PULSE 99; RESP 25; TEMP 36.3; O2SAT 100
--- NOTE | 2024-04-04 14:31 | ECG_ITS ---
Test Date: 2024-04-04 14:41:29 Measurements Intervals [place] Rate: 94 P: 51 TX: 143 QRS: 62 QRSD: 85 T: 44 QT: 343 QTc: 431 Interpretive Statements SINUS RHYTHM POSSIBLE LEFT ATRIAL ENLARGEMENT [-0.1mV P-WAVE IN V1/V2] No previous ECG available for comparison Electronically Signed On 04-04-2024 16:03:27 CDT by Sara Mena M.D.
--- NOTE | 2024-04-04 14:32 | ED.ABDPAIN ---
HPI - Abdominal Pain General Chief Complaint: Abdominal Pain Stated Complaint: abd pain, n/v Time Seen by Provider: 04/04/24 14:23 History of Present Illness HPI narrative: 44-year-old female with history of enteritis, ileus, GERD, hypertension, s/p cholecystectomy in 2002 and nephrolithiasis presents to the emergency department for abdominal pain that started at 2:30 a.m.. Patient states the pain is in her epigastrium and periumbilical region. She describes the pain as sharp and pulling . She denies aggravating or alleviating factors. States she had spaghetti for dinner last night. Reports associated nausea and vomiting. Last bowel movement was this morning and watery. Denies melena or hematochezia, dysuria or hematuria, urinary frequency urgency, fevers. She was admitted to our hospital on for abdominal pain. She is found have an ileus and enteritis. She was discharged home on 02/25/24 after receiving IV antibiotics and hydration. She had an outpatient colonoscopy performed on 03/22/2024 which showed a few diverticula present transverse colon, descending colon and sigmoid colon. There is a single 3 mm polyp underwent snare polypectomy. 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 Related Data Home Medications Medication Instructions Recorded Confirmed cholecalciferol (vitamin D3) 25 25 mcg PO DAILY 04/30/21 03/22/24 mcg (1,000 unit) capsule famotidine 10 mg chewable tablet 10 mg PO BID 02/21/24 03/22/24 fexofenadine 60 mg tablet (Sadaf 20 mg PO BID 02/21/24 03/22/24 Allergy) lisinopril 20 mg tablet 40 mg PO DAILY 02/21/24 03/22/24 meloxicam 15 mg tablet 15 mg PO DAILY PRN Pain 02/21/24 03/22/24 montelukast 10 mg tablet 10 mg PO DAILY 02/21/24 03/22/24 semaglutide (weight loss) 0.25 0.5 mg subcut WEEKLY 02/21/24 03/22/24 mg/0.5 mL subcutaneous pen injector (Wegovy) Sadaf See Rx Instructions .Route .COMPLEX 03/11/24 03/22/24 Flonase 1 inh intranasal DAILY 09/12/24 09/23/24 epinephrine 0.3 mg/0.3 mL 0.3 mg subcut DAILY PRN reaction 03/11/24 03/22/24 injection, auto-injector norethindrone acetate 1.5 1 tablet PO DAILY 03/11/24 03/22/24 mg-ethinyl estradiol 30 mcg tablet (Yen) Allergies Allergy/AdvReac Type Severity Reaction Status Date / Time morphine AdvReac Swelling Verified 04/04/24 19:32 of Lip/Tongue/Throat Review of Systems Review of Systems: All systems reviewed & are unremarkable except as noted in HPI and below PMFSH Past Medical History Medical History GERD (gastroesophageal reflux disease) Hypertension Kidney stones Surgical History Surgical History History of cholecystectomy History of extraction of renal calculus Family History Family History Father Hypertension Mother Breast cancer Grandparent Breast cancer Diabetes mellitus Social History Social History Smoking status: Former smoker Tobacco type: cigarettes Alcohol intake: current Alcohol use details: socially Substance use: never Substance use type: does not use Do You Feel Safe in your Home?: Yes Lack of Transportation: No Lack of Food: Never True Current Housing: I Have Housing Concerned About Future Housing: No Difficulty Paying Gas/Electric Bills: No Difficulty Paying for Meds: No Currently Unemployed: No Education: Associate Degree Difficulty w/ Childcare or Family Care: No Living arrangements: with family Occupation/Education: occupation 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 EYES: PERRLA and EOMI. ENT: Nares clear, no rhinorrhea or epis
[2024-04-04 14:47] VITALS: BP 128/106; PULSE 90; RESP 20; O2SAT 99
[2024-04-04] MEDS: ONDANSETRON INJ 4 MG/2 ML VIAL IV PUSH (15:01)
[2024-04-04] MEDS: MORPHINE SULFATE (*CRX) 4 MG/ML INJ IV PUSH ×2 (15:01→17:26)
[2024-04-04] MEDS: SODIUM CHLORIDE 0.9% IV 1,000 ML 999 ML IV CONT ×2 (15:02→17:27)
[2024-04-04] MEDS: PANTOPRAZOLE SODIUM IV 40 MG VIAL IV PUSH (15:02)
[2024-04-04 15:06] LABS: Basophils Percent Auto 0.2 % (0.2-1.2); Eosinophils Percent Auto 0.1 % (0-4.4); Hemoglobin 16.5 g/dL (12.0-15.0); Immature Granulocyte Absolute 0.06 K/mm3 (0.00-0.031); Immature Granulocyte Percent A 0.4 % (0-0.5); Lymphocytes Absolute Auto 1.23 K/mm3 (0.9-3.2); Lymphocytes Percent Auto 7.5 % (18.3-44.2); Mean Corpuscular HGB Conc 33.7 g/dl (32-36); Mean Corpuscular Hemoglobin 31.5 pg (26-34); Mean Corpuscular Volume 93.7 fl (80-100); Mean Platelet Volume 11.1 fl (7.4-10.4); Monocytes Absolute Auto 0.3 K/mm3 (0.1-0.6); Neutrophils Absolute Auto 14.7 K/mm3 (1.3-6.7); Neutrophils Percent Auto 89.8 % (45.5-73.1); Platelet Count Result 329 k/mm3 (150-375); Red Blood Count 5.23 M/mm3 (4.2-5.4); Red Cell Distribution Width 12.6 % (11.5-14.5); White Blood Count 16.4 K/mm3 (4.5-10.0)
[2024-04-04 15:15] LABS: Alanine Aminotransferase 15 U/L (6-35); Albumin Level 4.2 g/dL (3.5-5.1); Alkaline Phosphatase 83 U/L (38-126); Anion Gap 9 mmol/L (4-12); Aspartate Amino Transferase 20 U/L (14-36); Bilirubin,Total 0.8 mg/dL (0.2-1.3); Blood Urea Nitrogen 13 mg/dL (7-17); Calcium 8.9 mg/dL (8.4-10.2); Carbon Dioxide 24 mmol/L (22-30); Chloride 104 mmol/L (98-107); Estimated CRCL calculation 87 ml/min; Estimated Glomerular Filt Rate > 60; Glucose 119 mg/dL (65-110); Lipase 98 U/L (23-300); Potassium 4.2 mmol/L (3.4-5.0); Sodium 137 mmol/L (137-145)
[2024-04-04 15:16] LABS: Lactic Acid Reflex 1.7 mmol/L (0.7-2.0)
[2024-04-04 15:27] LABS: Troponin I < 0.012 ng/mL (0.000-0.034)
[2024-04-04 17:37] LABS: Add Urine Microscopic? YES; Appearance Urine Turbid (Clear); Bacteria Urine 3+ /hpf; Bilirubin Urine 1+ (Negative); Blood Urine Negative (Negative); Calcium Oxalate Crystals Urine Present /hpf; Color Urine Dark Yellow (Yellow); Glucose Urine UA Negative (Negative); Ketones Urine 2+ mg/dL (Negative); Leukocyte Esterase Ur Trace LEU/UL (Negative); Mucus Urine Present /lpf; Need Manual Microscopic Reviewed; Nitrate Urine Negative (Negative); Protein Urine 1+ mg/dL (Negative); Specific Grav Ur 1.032 (1.001-1.035); Squamous Epithelial Cell Urine Moderate /hpf (Few); pH Urine 5.5 (5.0-9.0)
[2024-04-04 18:11] VITALS: BP 156/108; PULSE 88; RESP 20; O2SAT 100
[2024-04-04] MEDS: CIPROFLOXACIN 500 MG TAB PO (18:24)
[2024-04-04] MEDS: metroNIDAZOLE 500 MG TABLET PO (18:24)
[2024-04-04] MEDS: diphenhydrAMINE HCl INJ 50 MG/ML VIAL 25 MG IV PUSH (18:25)
[2024-04-04] MEDS: methylPREDNISolone SOD SUCC 125 MG VIAL IV PUSH (18:25)
[2024-04-04] MEDS: FAMOTIDINE 20 MG/2 ML VIAL IV PUSH (18:25)
[2024-04-04 19:50] VITALS: BP 139/96; PULSE 96; RESP 18; O2SAT 98
== END 2024-04-04 19:50 | disposition home or self-care (01) ==
PROVIDERS: Emergency Provider Physician Assistant; PCP Family Medicine
DX: K52.9 Noninfective gastroenteritis and colitis, unspecified (principal); K29.00 Acute gastritis without bleeding; K56.7 Ileus, unspecified; I10 Essential (primary) hypertension; K21.9 Gastro-esophageal reflux disease without esophagitis; Z90.49 Acquired absence of other specified parts of digestive tract; Z87.442 Personal history of urinary calculi; Z87.891 Personal history of nicotine dependence; R18.8 Other ascites; Z79.899 Other long term (current) drug therapy; Z79.85 Long-term (current) use of injectable non-insulin antidiabetic drugs; Z79.1 Long term (current) use of non-steroidal anti-inflammatories (NSAID); Z79.3 Long term (current) use of hormonal contraceptives
CPT/HCPCS: 36415; 74177; 80053; 81001; 83605; 83690; 84484; 85025; 85610; 85730; 87086; 93005; 96361; 96374; 96375; 96376; 99284; A9270; J1200; J2270; J2405; J2470; J2919; J7030; Q9967

== ENCOUNTER 2024-05-07 15:56 | Emergency (ER) | payer BC, SELFPAY ==
[2024-05-07] VITALS (10 sets, daily range): BP systolic 111–185; BP diastolic 75–134; PULSE 85–100; RESP 14–23; TEMP 36.4–36.6; O2SAT 96–100
--- NOTE | ~2024-05-07 | CT_ITS ---
CLINICAL INDICATION: Abdominal pain COMPARISON: Examination was compared with multiple prior studies performed most recently on 04/04/2024 and dating back to 09/13/2022 TECHNIQUE: Multiple contiguous axial images of the abdomen and pelvis were performed following the ad ministration of with 100 mL Omnipaque-350 intravenous contrast The dose-length product (DLP) was 1470.25 mGy-cm. Automated exposure control and iterative reconstruction technique were employed. FINDINGS/OBSERVATIONS: Visualized lower thorax: The bilateral lung bases are clear. The heart is of normal size, without pericardial effusion. Small hiatal hernia is present. Liver: The liver is enlarged measuring 21 cm in longitudinal dimension (progressively increasing in size fro m 02/21/2024 when it measured 20 cm in longitudinal dimension, and measuring 19 cm in longitudinal dim ension on 09/13/2022). Perihepatic fluid is redemonstrated, unchanged from 02/21/2024 but an interval change from 09/13/2022. Gallbladder and biliary system: The gallbladder is surgically absent. Pancreas: The pancreas enhances homogeneously without ductal dilatation. Spleen: The spleen enhances homogeneously and is not enlarged measuring 10 cm in longitudinal dimension. Dorothy splenic fluid is also present. Kidneys: The bilateral kidneys enhance symmetrically without hydronephrosis or renal calculi. Adrenal glands: Unremarkable. Gastrointestinal tract: Redemonstration of multiple loops of hyperemic dilated fluid-filled small bowel within the midabdomen with infiltration of the mesenteric fat, similar in appearance to previous examination dated 02/21/20. Free fluid extending into the paracolic gutters bilaterally, left greater than right. Appendix: The air-filled appendix is of normal caliber (axial series, images 107-130) Vasculature: Unremarkable. No aneurysmal dilatation or significant stenosis. Lymph nodes: No pathologically enlarged or morphologically suspicious lymph nodes within the retroperitoneum or at the root of the mesentery. Pelvic structures: Free fluid extends into the pelvis residing within the pouch of Arturo. The uterus is anteverted and anteflexed, and otherwise unremarkable. The bladder is only minimally distended, without surrounding inflammatory change. Body wall and musculoskeletal: Degenerative disease at the level of L5/S1, with osteophyte formation, disc space narrowing, endplate changes and vacuum phenomena. The remainder of the lower thoracic and lumbosacral spine is unremarkable. Small fat-containing umbilical hernia. IMPRESSION: Significant mural thickening and edema within multiple loops of primarily distal small bowel, which g iven its distribution inflammatory bowel disease should be considered in the differential diagnosis, along with ischemia and infectious enteritis. Increased free fluid within the abdomen and pelvis when compared with previous examinations suggestin g increased inflammatory change. Degenerative disease at the level of L5/S1. Akilah Huff for Dr. Eddie Gardiner imaging Reviewed, dictated and finalized at location A. IT RISK SPECIALIST IMPRESSION: Significant mural thickening and edema within multiple loops of primarily dista l small bowel, which given its distribution inflammatory bowel disease should b e considered in the differential diagnosis, along with ischemia and infectious enteritis. Increased free fluid within the abdomen and pelvis when compared with previous examinations suggesting increased inflammatory change. Degenerative disease at the level of L5/S1. Akilah Huff for Dr. Eddie Gardiner imaging
--- NOTE | 2024-05-07 18:26 | ECG_ITS ---
Test Date: 2024-05-07 19:44:21 Measurements Intervals [place] Rate: 88 P: 56 LA: 153 QRS: 69 QRSD: 81 T: 30 QT: 343 QTc: 416 Interpretive Statements SINUS RHYTHM POSSIBLE LEFT ATRIAL ENLARGEMENT BASELINE WANDER- V2 BORDERLINE ECG Compared to ECG 04/04/2024 14:41:29 NO SIGNIFICANT CHANGE Electronically Signed On 05-08-2024 06:51:28 [employer] by Carlos Witt D.O.
--- NOTE | 2024-05-07 18:33 | ED.ABDPAIN ---
HPI - Abdominal Pain General Chief Complaint: Abdominal Pain <Tori Garibay APRN - Last Filed: 05/07/24 18:37> Stated Complaint: ABD PAIN <Tori Garibay APRN - Last Filed: 05/07/24 18:37> Time Seen by Provider: 05/07/24 18:20 <Tori Garibay APRN - Last Filed: 05/07/24 18:37> Focused HPI: Patient is a 44-year-old female who presents to the ER with abdominal pain. She reports she has been sore for the past 2 days, but this morning her pain became like a contraction. Patient reports she has a history of a small bowel infection that presented with similar symptoms in the past. She reports she recently had a colonoscopy that showed no abnormalities. Patient denies any drug use. She reports pain is mostly around her belly button, but radiates to her left upper and left lower quadrant. Patient endorses nausea and vomiting. She reports her last bowel movement was this morning and it was normal for her. GENERAL: Well-appearing, well-nourished, and in no acute distress. HEAD: Normocephalic, atraumatic. CHEST: Clear to auscultation. ?No respiratory distress. HEART: Regular rate and rhythm.? NEURO: ?Alert and oriented x3. Patient screened in triage and initial orders placed.? ?Additional care and disposition to be based upon?diagnostic testing and treatment. <Tori Garibay APRN - Last Filed: 05/07/24 18:37> History of Present Illness HPI narrative: I agree with the HPI as documented in the MSE. <Nando Gardiner MD - Last Filed: 05/08/24 06:23> Related Data Home Medications: Home Medications Medication Instructions Recorded Confirmed cholecalciferol (vitamin D3) 25 25 mcg PO DAILY 04/30/21 03/22/24 mcg (1,000 unit) capsule famotidine 10 mg chewable tablet 10 mg PO BID 02/21/24 03/22/24 fexofenadine 60 mg tablet (Sadaf 20 mg PO BID 02/21/24 03/22/24 Allergy) lisinopril 20 mg tablet 40 mg PO DAILY 02/21/24 03/22/24 meloxicam 15 mg tablet 15 mg PO DAILY PRN Pain 02/21/24 03/22/24 montelukast 10 mg tablet 10 mg PO DAILY 02/21/24 03/22/24 semaglutide (weight loss) 0.25 0.5 mg subcut WEEKLY 02/21/24 03/22/24 mg/0.5 mL subcutaneous pen injector (Alivia) Sadaf See Rx Instructions .Route .COMPLEX 03/11/24 03/22/24 Flonase 1 inh intranasal DAILY 03/11/24 03/22/24 epinephrine 0.3 mg/0.3 mL 0.3 mg subcut DAILY PRN reaction 03/11/24 03/22/24 injection, auto-injector norethindrone acetate 1.5 1 tablet PO DAILY 03/11/24 03/22/24 mg-ethinyl estradiol 30 mcg tablet (Yen) <Tori Garibay APRN - Last Filed: 05/07/24 18:37> Allergies/Adverse Reactions: Allergies Allergy/AdvReac Type Severity Reaction Status Date / Time morphine AdvReac Swelling Verified 04/04/24 19:32 of Lip/Tongue/Throat <Tori Garibay APRN - Last Filed: 05/07/24 18:37> Review of Systems Review of Systems: All systems reviewed & are unremarkable except as noted in HPI and below <Nando Gardiner MD - Last Filed: 05/08/24 06:23> [facility] Past Medical History Medical History: Medical History GERD (gastroesophageal reflux disease) Hypertension Kidney stones <Tori Garibay APRN - Last Filed: 05/07/24 18:37> Surgical History Surgical History: Surgical History History of cholecystectomy History of extraction of renal calculus <Tori Garibay APRN - Last Filed: 05/07/24 18:37> Family History Family History: Family History Father Hypertension Mother Breast cancer Grandparent Breast cancer Diabetes mellitus <Tori Garibay APRN - Last Filed: 05/07/24 18:37> Social History Social History: Social History Smoking status: Former smoker Tobacco type: cigarettes Alcohol intake: current Alcohol use details: socially Substance use: never Substance use type: does not use Do You Feel Safe in your Home?: Yes Lack of Transportation: No Lack of Food: Never True Current Housing: I Have Housing Concerned About Future Housing: No Difficulty Paying Gas/Electric Bills: No Difficulty Paying for Meds: No Currently Unemployed: No Education: Associate Degree Difficulty w/ Childcare or Family Care: No Living arrangements: with family Occupation/Education: occupation Additional occupation/education comments: [employer] Spiritual care concerns: No <Toridenys Garibay, PROJECT ENGINEERING MANAGER - Last Filed: 05/07/24 18:37> Exam Narrative: GENERAL: Well-developed, well-nourished, Appears uncomfortable HEAD: Normocephalic, atraumatic. EYES: PERRLA and EOMI. CHEST: Clear to auscultation. No respiratory distress. No wheezes rales or rhonchi HEART: Regular rate and rhythm. No murmur heard. Normal peripheral pulses. ABDOMEN: Soft, tender palpation in the periumbilical right lower quadrant regions with rebound though no guarding, nondistended, normal active bowel sounds. no CVA tenderness EXTREMITIES: Normal range of motion. No edema. SKIN: Warm, dry, no rash. NEURO: Alert and oriented x3. No focal deficit. Moving all 4 limbs spontaneously PSYCH: Normal mood and affect. <Nando Gardiner MD - Last Filed: 05/08/24 06:23> Course Course Emergency Course: 00:00 - CT demonstrates inflammation of the small bowel with ascites though is unchanged compared to previous CTs. White blood cell count elevated to 17.3. On re-evaluation, the patient states her pain was significantly improved with Toradol. Chemistries within normal limits including lactic acid of 1.3 and a lipase of 102. It is possible that the patient's inflammatory changes are due to autoimmune disease as opposed to infection. The patient states she had no changes symptoms after a course of ciprofloxacin and Flagyl previously. Show decision-making conversation with the patient regarding her findings and improved pain. The patient prefers to be discharged home as opposed to admission for further workup. Will trial a course of Augmentin and discharge with recommendation for primary care and GI follow-up. I discussed the findings and recommendations with the patient. Discussed return and emergency precautions including signs/symptoms of acute abdomen and intractable vomiting. The patient voiced understanding and agreement with the plan. All questions answered to her satisfaction. <Nando Gardiner MD - Last Filed: 05/08/24 06:23> Vital Signs Vital signs: Vital Signs Temperature 97.8 F 05/07/24 16:15 Pulse Rate 92 05/07/24 16:15 Respiratory Rate 16 05/07/24 16:15 Blood Pressure 174/118 H 05/07/24 16:15 Pulse Oximetry 100 05/07/24 16:15 Temperature 97.6 F 05/07/24 16:25 Pulse Rate 93 05/07/24 23:16 Respiratory Rate 14 05/07/24 23:16 Blood Pressure 111/100 H 05/07/24 23:16 Pulse Oximetry 98 05/07/24 23:16 <Tori Garibay, PROJECT ENGINEERING MANAGER - Last Filed: 05/07/24 18:37> Vital Signs Temperature 97.8 F 05/07/24 16:15 Pulse Rate 92 05/07/24 16:15 Respiratory Rate 16 05/07/24 16:15 Blood Pressure 174/118 H 05/07/24 16:15 Pulse Oximetry 100 05/07/24 16:15 Temperature 97.6 F 05/07/24 16:25 Pulse Rate 93 05/07/24 23:16 Respiratory Rate 14 05/07/24 23:16 Blood Pressure 111/100 H 05/07/24 23:16 Pulse Oximetry 98 05/07/24 23:16 <Nando Gardiner MD - Last Filed: 05/08/24 06:23> MDM - Abdominal Pain MDM Narrative Medical decision making narrative: plan: Labs, imaging, pain control, fluids, reassess <Nando Gardiner MD - Last Filed: 05/08/24 06:23> Differential Diagnosis Differential diagnosis: Likely abdominal pain, acute appendicitis, calculus of kidney, diverticulitis, gastroenteritis, pancreatitis, small bowel obstruction and other ( ectopic , metabolic abnormality, other) <Nando Gardiner MD - Last Filed: 05/08/24 06:23> Lab Data Result diagrams: 05/07/24 19:21 05/07/24 19:21 <Tori Garibay APRN - Last Filed: 05/07/24 18:37> Labs: Lab Results 05/07/24 05/07/24 Range/Units 19:21 23:42 WBC 17.3 H (4.5-10.0) K/mm3 RBC 4.83 (4.2-5.4) M/mm3 Hgb 15.3 H (12.0-15.0) g/dL Hct 45.1 (37.0-47.0) % MCV 93.4 (80-100) fl MCH 31.7 (26-34) pg MCHC 33.9 (32-36) g/dl RDW 12.3 (11.5-14.5) % Plt Count 305 (150-375) k/mm3 MPV 10.9 H (7.4-10.4) fl Immature Gran % (Auto) 0.2 (0-0.5) % Neut % (Auto) 80.4 H (45.5-73.1) % Lymph % (Auto) 13.7 L (18.3-44.2) % [place] % (Auto) 4.7 (2.6-8.5) % Eos % (Auto) 0.8 (0-4.4) % Baso % (Auto) 0.2 (0.2-1.2) % Lymph # (Auto) 2.37 (0.9-3.2) K/mm3 [place] # (Auto) 0.8 H (0.1-0.6) K/mm3 Eos # (Auto) 0.1 (0-0.3) K/mm3 Baso # (Auto) 0.0 (0.0-0.1) K/mm3 Abs Immat Gran (auto) 0.04 H (0.00-0.031) K/mm3 Absolute Neuts (auto) 13.9 H (1.3-6.7) K/mm3 Absolute Nucleated RBC 0.000 (0.0-0.012) K/mm3 Nucleated RBC % 0.0 (0.0-0.2) % PT 14.0 (11.1-14.7) Seconds INR 1.0 APTT 25.0 (22.3-36.8) Seconds Sodium 136 L (137-145) mmol/L Potassium 4.1 (3.4-5.0) mmol/L Chloride 100 (98-107) mmol/L Carbon Dioxide 25 (22-30) mmol/L Anion Gap 11 (4-12) mmol/L BUN 9 (7-17) mg/dL Creatinine 0.80 (0.7-1.0) mg/dL Estim Creat Clear Calc 97 ml/min Estimated GFR > 60 (59 - ) Glucose 101 (65-110) mg/dL Lactic Acid 1.3 (0.7-2.0) mmol/L Calcium 9.2 (8.4-10.2) mg/dL Total Bilirubin 0.8 (0.2-1.3) mg/dL AST 18 (14-36) U/L ALT 13 (6-35) U/L Alkaline Phosphatase 70 (38-126) U/L Troponin I < 0.012 (0.000-0.034) ng/mL Total Protein 8.0 (6.3-8.2) g/dL Albumin 4.2 (3.5-5.1) g/dL Lipase 102 (23-300) U/L Urine Color Yellow (Yellow) Urine Appearance Clear (Clear) Urine pH 5.5 (5.0-9.0) Ur Specific [place] > 1.045 H (1.001-1.035) Urine Protein 1+ H (Negative) mg/dL Urine Glucose (UA) Negative (Negative) mg/dL Urine Ketones 1+ H (Negative) mg/dL Ur Blood (Man) Negative (Negative) Urine Nitrate Negative (Negative) Urine Bilirubin Negative (Negative) Urine Urobilinogen 0.2 (<2.0) mg/dL Add Ur Microanalysis Reviewed Leukocyte Esterase Rfl Negative (Negative) SOPHIE/UL Urine RBC 3-5 H (0-2) /hpf Urine WBC 0-5 (0-3) /hpf Ur Squamous Epith Cells None seen (Few) /hpf Urine Bacteria None seen /hpf Urine Casts 0-2 <Tori Garibay, PROJECT ENGINEERING MANAGER - Last Filed: 05/07/24 18:37> Lab Results 05/07/24 05/07/24 Range/Units 19:21 23:42 WBC 17.3 H (4.5-10.0) K/mm3 RBC 4.83 (4.2-5.4) M/mm3 Hgb 15.3 H (12.0-15.0) g/dL Hct 45.1 (37.0-47.0) % MCV 93.4 (80-100) fl MCH 31.7 (26-34) pg MCHC 33.9 (32-36) g/dl RDW 12.3 (11.5-14.5) % Plt Count 305 (150-375) k/mm3 MPV 10.9 H (7.4-10.4) fl Immature Gran % (Auto) 0.2 (0-0.5) % Neut % (Auto) 80.4 H (45.5-73.1) % Lymph % (Auto) 13.7 L (18.3-44.2) % [place] % (Auto) 4.7 (2.6-8.5) % Eos % (Auto) 0.8 (0-4.4) % Baso % (Auto) 0.2 (0.2-1.2) % Lymph # (Auto) 2.37 (0.9-3.2) K/mm3 [place] # (Auto) 0.8 H (0.1-0.6) K/mm3 Eos # (Auto) 0.1 (0-0.3) K/mm3 Baso # (Auto) 0.0 (0.0-0.1) K/mm3 Abs Immat Gran (auto) 0.04 H (0.00-0.031) K/mm3 Absolute Neuts (auto) 13.9 H (1.3-6.7) K/mm3 Absolute Nucleated RBC 0.000 (0.0-0.012) K/mm3 Nucleated RBC % 0.0 (0.0-0.2) % PT 14.0 (11.1-14.7) Seconds INR 1.0 APTT 25.0 (22.3-36.8) Seconds Sodium 136 L (137-145) mmol/L Potassium 4.1 (3.4-5.0) mmol/L Chloride 100 (98-107) mmol/L Carbon Dioxide 25 (22-30) mmol/L Anion Gap 11 (4-12) mmol/L BUN 9 (7-17) mg/dL Creatinine 0.80 (0.7-1.0) mg/dL Estim Creat Clear Calc 97 ml/min Estimated GFR > 60 (59 - ) Glucose 101 (65-110) mg/dL Lactic Acid 1.3 (0.7-2.0) mmol/L Calcium 9.2 (8.4-10.2) mg/dL Total Bilirubin 0.8 (0.2-1.3) mg/dL AST 18 (14-36) U/L ALT 13 (6-35) U/L Alkaline Phosphatase 70 (38-126) U/L Troponin I < 0.012 (0.000-0.034) ng/mL Total Protein 8.0 (6.3-8.2) g/dL Albumin 4.2 (3.5-5.1) g/dL Lipase 102 (23-300) U/L Urine Color Yellow (Yellow) Urine Appearance Clear (Clear) Urine pH 5.5 (5.0-9.0) Ur Specific [place] > 1.045 H (1.001-1.035) Urine Protein 1+ H (Negative) mg/dL Urine Glucose (UA) Negative (Negative) mg/dL Urine Ketones 1+ H (Negative) mg/dL Ur Blood (Man) Negative (Negative) Urine Nitrate Negative (Negative) Urine Bilirubin Negative (Negative) Urine Urobilinogen 0.2 (<2.0) mg/dL Add Ur Microanalysis Reviewed Leukocyte Esterase Rfl Negative (Negative) SOPHIE/UL Urine RBC 3-5 H (0-2) /hpf Urine WBC 0-5 (0-3) /hpf Ur Squamous Epith Cells None seen (Few) /hpf Urine Bacteria None seen /hpf Urine Casts 0-2 <Nando Gardiner MD - Last Filed: 05/08/24 06:23> Imaging Data Radiologist's impression: ITS Impressions Abdomen/Pelvis CT 05/07/24 23:12 IMPRESSION: Significant mural thickening and edema within multiple loops of primarily distal small bowel, which given its distribution inflammatory bowel disease should be considered in the differential diagnosis, along with ischemia and infectious enteritis. Increased free fluid within the abdomen and pelvis when compared with previous examinations suggesting increased inflammatory change. Degenerative disease at the level of L5/S1. Akilah Huff for Dr. Eddie Gardiner imaging <Tori Garibay APRN - Last Filed: 05/07/24 18:37> ITS Impressions Abdomen/Pelvis CT 05/07/24 23:12 IMPRESSION: Significant mural thickening and edema within multiple loops of primarily distal small bowel, which given its distribution inflammatory bowel disease should be considered in the differential diagnosis, along with ischemia and infectious enteritis. Increased free fluid within the abdomen and pelvis when compared with previous examinations suggesting increased inflammatory change. Degenerative disease at the level of L5/S1. Akilah Huff for Dr. Eddie Gardiner imaging <Nando Gardiner MD - Last Filed: 05/08/24 06:23> ECG Data EKG #1: Attestation: I personally reviewed and interpreted this ECG as follows: <Nando Gardiner MD - Last Filed: 05/08/24 06:23> ECG completion date: 05/07/24 <Nando Gardiner MD - Last Filed: 05/08/24 06:23> ECG completion time: 19:44 <Nando Gardiner MD - Last Filed: 05/08/24 06:23> Interpretation: Sinus rhythm, rate 88, normal axis, no ST segment elevations or T-wave inversions concerning for ischemia, normal intervals with QTC of 416. Compared to EKG done in March 2024, there are no significant changes. <Nando Gardiner MD - Last Filed: 05/08/24 06:23> Discharge Plan Discharge Clinical Impression: Abdominal pain, right lower quadrant, Enteritis <Tori Garibay APRN - Last Filed: 05/07/24 18:37> Patient Disposition: Home, Self-Care <Tori Garibay APRN - Last Filed: 05/07/24 18:37> Condition: Stable <Tori Garibay APRN - Last Filed: 05/07/24 18:37> Instructions: Antibiotic Form, Enteritis (ED) <Tori Garibay APRN - Last Filed: 05/07/24 18:37> Additional Instructions: You were seen in the emergency department. Your blood cell count is elevated. A CT scan of the abdomen showed inflammation around the small bowel that has not changed significantly compared to previous findings. will trial a course of oral antibiotics, pain medications. I recommend following up with your primary care doctor and a GI doctor. If you develop Worsening abdominal pain, abdominal pain fevers, persistent vomiting, bleeding, or if you have other emergent concerns for life, limb, or eyesight, return to the emergency department. <Tori Garibay, PROJECT ENGINEERING MANAGER - Last Filed: 05/07/24 18:37> Patient Language: Gambian <Tori Garibay APRN - Last Filed: 05/07/24 18:37> Prescriptions: New amoxicillin-pot clavulanate 875-125 mg tablet 1 tablet PO Q8H 10 Days Qty: 30 0RF hydrocodone-acetaminophen 7.5-325 mg tablet 1 tablet PO Q8H PRN (Reason: pain, severe) 4 Days Qty: 12 0RF ondansetron 4 mg tablet,disintegrating 4 mg PO Q8H PRN (Reason: nausea and vomiting) Qty: 15 0RF No Action cholecalciferol (vitamin D3) 25 mcg (1,000 unit) capsule 25 mcg PO DAILY meloxicam 15 mg tablet 15 mg PO DAILY PRN (Reason: Pain) lisinopril 20 mg tablet 40 mg PO DAILY montelukast 10 mg tablet 10 mg PO DAILY Wegovy 0.25 mg/0.5 mL pen injector 0.5 mg SUBCUT WEEKLY Rx Instructions: weekly on friday fexofenadine [Sadaf Allergy] 60 mg Tablet 20 mg PO BID famotidine 10 mg Tablet,Chewable 10 mg PO BID metronidazole 500 mg tablet 500 mg PO Q12H Qty: 14 0RF ciprofloxacin HCl 500 mg tablet 500 mg PO Q12H Qty: 14 0RF metoclopramide HCl 10 mg tablet 10 mg PO Q6H PRN (Reason: nausea and vomiting) Qty: 14 0RF hydrocodone-acetaminophen 5-325 mg tablet 1 tablet PO Q8H PRN (Reason: pain) Qty: 14 0RF Sadaf See Rx Instructions .ROUTE .COMPLEX Rx Instructions: BID norethindrone ac-eth estradiol [Yen] 1.5-30 mg-mcg tablet 1 tablet PO DAILY epinephrine 0.3 mg/0.3 mL auto-injector 0.3 mg subcut DAILY PRN (Reason: reaction) Flonase 1 inh intranasal DAILY <Tori Garibay APRN - Last Filed: 05/07/24 18:37> Follow-up/Referrals: Webster,MD Anish [Primary Care Provider] - 1 Week Sharif Duff MD [Physician] - 2 Weeks <Tori Garibay APRN - Last Filed: 05/07/24 18:37> Time of Disposition: 00:15 <Tori Garibay APRN - Last Filed: 05/07/24 18:37> 00:15 <Nando Gardiner MD - Last Filed: 05/08/24 06:23>
[2024-05-07 19:26] LABS: Basophils Percent Auto 0.2 % (0.2-1.2); Eosinophils Absolute Auto 0.1 K/mm3 (0-0.3); Eosinophils Percent Auto 0.8 % (0-4.4); Hematocrit 45.1 % (37.0-47.0); Hemoglobin 15.3 g/dL (12.0-15.0); Immature Granulocyte Absolute 0.04 K/mm3 (0.00-0.031); Immature Granulocyte Percent A 0.2 % (0-0.5); Lymphocytes Absolute Auto 2.37 K/mm3 (0.9-3.2); Lymphocytes Percent Auto 13.7 % (18.3-44.2); Mean Corpuscular HGB Conc 33.9 g/dl (32-36); Mean Corpuscular Hemoglobin 31.7 pg (26-34); Mean Corpuscular Volume 93.4 fl (80-100); Mean Platelet Volume 10.9 fl (7.4-10.4); Monocytes Absolute Auto 0.8 K/mm3 (0.1-0.6); Monocytes Percent Auto 4.7 % (2.6-8.5); Neutrophils Absolute Auto 13.9 K/mm3 (1.3-6.7); Neutrophils Percent Auto 80.4 % (45.5-73.1); Platelet Count Result 305 k/mm3 (150-375); Red Blood Count 4.83 M/mm3 (4.2-5.4); Red Cell Distribution Width 12.3 % (11.5-14.5); White Blood Count 17.3 K/mm3 (4.5-10.0)
[2024-05-07 19:35] LABS: Alanine Aminotransferase 13 U/L (6-35); Albumin Level 4.2 g/dL (3.5-5.1); Alkaline Phosphatase 70 U/L (38-126); Anion Gap 11 mmol/L (4-12); Aspartate Amino Transferase 18 U/L (14-36); Bilirubin,Total 0.8 mg/dL (0.2-1.3); Blood Urea Nitrogen 9 mg/dL (7-17); Calcium 9.2 mg/dL (8.4-10.2); Carbon Dioxide 25 mmol/L (22-30); Chloride 100 mmol/L (98-107); Estimated CRCL calculation 97 ml/min; Estimated Glomerular Filt Rate > 60; Glucose 101 mg/dL (65-110); Lipase 102 U/L (23-300); Potassium 4.1 mmol/L (3.4-5.0); Sodium 136 mmol/L (137-145)
[2024-05-07 19:36] LABS: Lactic Acid Reflex 1.3 mmol/L (0.7-2.0)
[2024-05-07] MEDS: HYDROcodone/acetaminophen (*CRX) 5-325 MG TABLET 1 TAB PO (19:46)
[2024-05-07] MEDS: ONDANSETRON HCL ODT 4 MG TABLET PO (19:46)
[2024-05-07 19:48] LABS: Troponin I < 0.012 ng/mL (0.000-0.034)
[2024-05-07] MEDS: PANTOPRAZOLE SODIUM IV 40 MG VIAL IV PUSH (19:51)
[2024-05-07] MEDS: FAMOTIDINE 20 MG/2 ML VIAL IV PUSH (19:52)
[2024-05-07] MEDS: SODIUM CHLORIDE 0.9% IV 1,000 ML 999 ML IV CONT (19:52)
[2024-05-07] MEDS: KETOROLAC 30 MG/ML VIAL (*BKC) 60 MG IV PUSH (19:58)
[2024-05-08] MEDS: HYDROcodone/acetaminophen (*CRX) 10-325 MG TABLET 1 TAB PO (00:11)
[2024-05-08 00:30] LABS: Add Urine Microscopic? YES; Appearance Urine Clear (Clear); Bacteria Urine None Seen /hpf; Bilirubin Urine Negative (Negative); Blood Urine Negative (Negative); Color Urine Yellow (Yellow); Glucose Urine UA Negative (Negative); Ketones Urine 1+ mg/dL (Negative); Leukocyte Esterase Ur Negative LEU/UL (Negative); Need Manual Microscopic Reviewed; Nitrate Urine Negative (Negative); Non Pathogenic Casts 0-2; Protein Urine 1+ mg/dL (Negative); Specific Grav Ur > 1.045 (1.001-1.035); Squamous Epithelial Cell Urine None Seen /hpf (Few); Urobilinogen Urine 0.2 mg/dL (<2.0); WBC Urine 0-5 /hpf (0-3); pH Urine 5.5 (5.0-9.0)
[2024-05-08] MEDS: AMOXICILLIN/CLAVULANATE K 875-125 MG TAB 1 TABLET PO (00:36)
== END 2024-05-08 00:39 | disposition home or self-care (01) ==
PROVIDERS: Registered Nurse; Emergency Provider Preventive Medicine Aerospace Medicine; PCP Family Medicine
DX: K52.9 Noninfective gastroenteritis and colitis, unspecified (principal); R10.31 Right lower quadrant pain; K21.9 Gastro-esophageal reflux disease without esophagitis; I10 Essential (primary) hypertension; Z87.891 Personal history of nicotine dependence
CPT/HCPCS: 36415; 74177; 80053; 81001; 83605; 83690; 84484; 85025; 85610; 85730; 93005; 96361; 96374; 96375; 99284; A9270; J1885; J2470; J7030; Q9967

== ENCOUNTER 2024-08-11 10:31 | Emergency (ER) | payer BC, SELFPAY ==
[2024-08-11 10:33] VITALS: BP 163/111; PULSE 88; RESP 18; TEMP 36.6; O2SAT 99
--- OUTSIDE RECORDS SUMMARY | 2024-08-11 11:22 | XMS_ITS ---
Author Organization [facility] Address [address] [place] [address] Care Team Providers Care Tubing Assembler Name Role Phone Unavailable Unavailable Unavailable Surgery Details Not on file Complications Check Surgery Details section. Procedure Estimated Blood Loss Check Surgery Details section. Procedure Findings Check Surgery Details section. Procedure Specimens Taken Check Surgery Details section.
--- OUTSIDE RECORDS SUMMARY | 2024-08-11 11:22 | XMS_ITS | CCD ---
Author Organization [facility] [place] [address] [place] [address] Care Team Providers Care Mold Yarn Supervisor Name Role Phone Unavailable Primary Care Provider Unavailabl e Social History Tobacco Use Types Packs/Day Years Used Date Smoking Tobacco: Never Assessed Comments Unknown Sex and Gender Information Value Date Recorded Sex Assigned at Not on file Legal Sex Unknown 07/23/2019 12:42 AM PST Gender Identity Not on file Sexual Orientation Not on file Plan of Treatment Not on file
--- OUTSIDE RECORDS SUMMARY | 2024-08-11 11:22 | XMS_ITS | Encounter Summary ---
Author Organization [facility] Address [address] [place] [address] Care Team Providers Care Polo Coach Name Role Phone Unavailable Primary Care Provider Unavailabl e Prior Encounters Date Type Department Care Team Description 07/19/2019 Converted 13x Documents [facility] [address] [place] [address] <No scans attached> 07/19/2019 Converted 13x Documents [facility] [address] [place] [address] <No scans attached> Plan of Treatment Not on file Visit Diagnoses Not on file
--- OUTSIDE RECORDS SUMMARY | 2024-08-11 11:23 | XMS_ITS ---
Author Organization [facility] Address [address] [place] [address] Care Team Providers Care Line Erector Apprentice Name Role Phone Anish Webster Primary Care Provider Kaleb Iverson Unavailable [phone] Mario Alberto Torres Unavailable [phone] REASON FOR VISIT CIU follow-up, Xolair administration scheduled today, Needs evaluation for pre- Xolair health questionaire to assess health status and medication review Medications Medication SIG (Take, Route, Frequency, Duration) Notes Start Date End Date Status Fluticasone Propionate 50 MCG/ACT 2 spray(s) in each nostril BID for 30 day(s) Active Fexofenadine HCl 180 MG 1 tab(s) orally twice a day for 30 days Active Wegovy 0.5 MG/0.5ML 0.5 mL Subcutaneous Active Vitamin D3 10 MCG 1 TAB(S) ORALLY ONCE A DAY for 30 DAY(S) patient takes 4000mcg daily *Please review and pick correct strength-formula tion from [employer] options. If intended option is not shown, discontinue and re-order from Quick Search* Active EPIPEN 2-SUE 0.3 mg as directed intramuscularly once for 30 days 10/20/2023 Not-Taking VITAMIN B-12 100 mcg 1 tab(s) orally once a day for 30 day(s) Not-Taking MICROGESTIN 1.5/30 30 mcg-1.5 mg 1 tab(s) orally once a day for 28 day(s) Not-Taking MONTELUKAST 10 mg 1 tab(s) orally once a day for 30 days Not-Taking FEXOFENADINE 180 mg 1 tab(s) orally twice a day for 30 days Not-Taking AUVI -Q 0.3 mg as directed intramuscularly once for 30 days 10/20/2023 Not-Taking CETIRIZINE 10 mg 1 tab(s) orally twic e a day for 30 days Not-Taking PEPCID 20 mg 1 tab(s) orally 2 times a day for 30 days Not-Taking MONTELUKAST 10 mg 1 tab(s) orally once a day for 30 day(s) Not-Taking FLUTICASONE NASAL 50 mcg/inh 2 spray(s) in each nostril BID for 30 day(s) Not-Taking VITAMIN D3 10 mcg 1 tab(s) orally once a day for 30 day(s) patient takes 4000mcg daily Not-Taking VITAMIN D3 10 mcg 1 tab(s) orally once a day for 30 day(s) patient takes 4000mcg daily Not-Taking MONTELUKAST 10 mg 1 tab(s) orally once a day for 30 day(s) Not-Taking Augmentin 500-125 MG 1 tablet Orally every 12 hrs Active CETIRIZINE 10 mg 1 tab(s) orally twic e a day for 30 days Not-Taking LISINOPRIL 20 mg 1 tab(s) orally once a day Not-Taking FEXOFENADINE 180 mg 1 tab(s) orally twice a day for 30 days Active XOLAIR 150 mg as directed 300 mg subcutaneously every 4 weeks for 28 days Active MONTELUKAST 10 mg 1 tab(s) orally once a day for 30 days Active FLUTICASONE NASAL 50 mcg/inh 2 spray(s) in each nostril twice a day for 30 days Active EpiPen 2-Sue 0.3 mg as directed intramuscularly once for 30 days Active Montelukast Sodium 10 MG TAKE 1 TABLET BY MOUTH DAILY for 30 Active Cetirizine HCl 10 MG 1 tab(s) orally twice a day for 30 days Not-Taking Microgestin 1.5/30 1.5-30 MG-MCG 1 tab(s) orally once a day for 28 day(s) Active Pepcid 20 mg 1 tab(s) orally 2 times a day for 30 days Active Auvi-Q 0.3 MG/0.3ML as directed intramuscularly once for 30 days 10/20/2023 Not-Taking Vitamin B-12 100 MCG 1 tab(s) orally once a day for 30 day(s) Active Xolair 150 MG as directed 300 mg subcutaneously every 4 weeks for 28 days Active Lisinopril 20 MG 1 tab(s) orally once a day Active Vital Signs Blood pressure systolic 135 mm Hg 07/15/19 25 Blood pressure diastolic 87 mm Hg 025 Height 66 in 07/15/2024 Oximetry 99 % 07/15/2024 Encounters Encounter Location Date Provider Diagnosis [facility] [address] [facility] [address] [place] [address] 07/15/2024 Mario Alberto Brian Other Urticaria L50. 8 Assessments Encounter Date Diagnosis (ICD Code) Assessment Notes Treatment Notes Treatment Clinical Notes Section Notes 07/15/2024 Other Urticaria (ICD-10 - L50.8) 07/15/2024 Other Plan Of Treatment Next Appt Details Follow Up: As scheduled for Xolair, Reason: Provider Name:Mario Alberto Torres , 08/12/2024 08:00:00 AM, [address] [employer], [place], [address], Procedure Notes * Category Sub-Category Detail Notes XOLAIR (omalizumab) Administration Dosing Time / Vitals TimothySwati perkins Morena 07/15/2024 08:27:06 AM JOURNEYMAN PIPE WELDER >, Time of administration, See initial vitals Dosage 300 mg (60 units) Location CORAZON, KEVIN Reaction None Frequency q 4 weeks AIE (epinephrine) on patient? yes Lot Number / Expiration Lot Number(s): [id number] , Expiration Date: 06/2025 Post-procedural check-out: Tracy Laurena Morena 07/15/2024 09:08:19 AM JOURNEYMAN PIPE WELDER >, Vital signs taken 30 minutes after dosing administration: BP: 120/80 HR: 89 SPO2: 98 Medication Source XOLAIR Source: Buy and Bill Source Verification:: Who pulled drug (p lease type staff name in notes)? belen Medical necessity for in-off ice administration: The patient or caregiver is not suitable , not competent or is physically unable to administer the XOLAIR product FDA-labeled for self-administration for the following reason(s):: The location and circumstances for self-administration are not adequate for the potential treatment of anaphylaxis should that arise Progress Notes * Melissa ELIDOB: 0 (44 yo F)Acc No.[id number]:07/15/2024 Xolair Only Patient: Melissa RUBY Provider: Dany Torres MD :[id number] A ge:44 Y S ex:Female Date:07/15/2024 Address:[address] [place], [place] [id number] Pcp:Anish Webster Subjective: * Chief Complaints: * C IU follow-up, Xolair administration scheduled todayNeeds evaluation for pre- Xolair health questionaire to assess health status and medication review * HPI: * Introduction: The patient is here for scheduled immunotherapy with Xolair. Please see the attached specialty form regarding the specifics of the administration of this medication. As per our protocol, they must undergo a screening health questionnaire (medication changes, reaction(s) to last immunotherapy dose(s), current health status, ACT (if appropriate), self-injectable epinephrine on patient(?) and peak flow (if appropriate)). Also, the patient must wait in our office under direct observation of physician and staff for 2 hours after the first 3 doses, then 30 minutes after receiving this medication thereafter. Furthermore, every patient must have an epinephrine pen (self-injectable) with them at all times given boxed warning of Xolair. * ROS: A LLERGY: Positive p er the HPI and history, otherwise unremarkable.? S PECIAL SENSES: Positve for p er the HPI and history, otherwise unremarkable. C ONSTITUTIONAL: Positive for p er the HPI and history, otherwise unremakable. E NT: Positive p er the HPI and history, otherwise unremarkable.? R ESPIRATORY: Positive for p er the HPI and history, otherwise unremarkable. O PHTHALMOLOGY: Positive for p er the HPI and history, othewise unremarkable. E NDOCRINOLOGY: Positive for n one. C ARDIOLOGY: Positive for n one. G ASTROENTEROLOGY: Positive for p er the HPI and history, otherwise unremarkable. U ROLOGY: Positive for n one. D ERMATOLOGY: Positive for p er the HPI and history, otherwise unremarkable. N EUROLOGY: Positive for n one. H EMATOLOGY/LYMPH: Positive for n one. M USCULOSKELETAL: Positive for n one. P SYCHOLOGY: Positive for n one. A ll other review of systems per the HPI and history, othwise unremarkable. * Medical History: * Surgical History: * Hospitalization/Major Diagno stic Procedure: * Medications: T akingPepcid 20 mg tablet 1 tab(s) orally 2 times a day EpiPen 2-Sue 0.3 mg kit as directed intramuscularly once FLUTICASONE NASAL 50 mcg/inh spray 2 spray(s) in each nostril twice a day Pepcid 20 mg tablet 1 tab(s) orally 2 times a day MONTELUKAST 10 mg tablet 1 tab(s) orally once a day FEXOFENADINE 180 mg tablet 1 tab(s) orally twice a day XOLAIR 150 mg powder for injection as directed 300 mg subcutaneously every 4 weeks EpiPen 2-Sue 0.3 mg kit as directed intramuscularly once Augmentin 500-125 MG Tablet 1 tablet Orally every 12 hrs Wegovy 0.5 MG/0.5ML Solution Auto-injector 0.5 mL Subcutaneous Vitamin D3 10 MCG TABLET 1 TAB(S) ORALLY ONCE A DAY , Notes to Pharmacist: patient takes 4000mcg daily *Please review and pick correct strength-formulation from [employer]ispan options. If intended option is not shown, discontinue and re-order from Quick Search*Fluticasone Propionate 50 MCG/ACT Suspension 2 spray(s) in each nostril BID Fexofenadine HCl 180 MG Tablet 1 tab(s) orally twice a day Xolair 150 MG Solution Reconstituted as directed 300 mg subcutaneously every 4 weeks Lisinopril 20 MG Tablet 1 tab(s) orally once a day Vitamin B-12 100 MCG Tablet 1 tab(s) orally once a day Microgestin 1.5/30 1.5-30 MG-MCG Tablet 1 tab(s) orally once a day Montelukast Sodium 10 MG Tablet TAKE 1 TABLET BY MOUTH DAILY Taking Pepcid 20 mg tablet 1 tab(s) orally 2 times a day Taking EpiPen 2-Sue 0.3 mg kit as directed intramuscularly once Taking FLUTICASONE NASAL 50 mcg/inh spray 2 spray(s) in each nostril twice a day Taking Pepcid 20 mg tablet 1 tab(s) orally 2 times a day Taking MONTELUKAST 10 mg tablet 1 tab(s) orally once a day Taking FEXOFENADINE 180 mg tablet 1 tab(s) orally twice a day Taking XOLAIR 150 mg powder for injection as directed 300 mg subcutaneously every 4 weeks Taking EpiPen 2-Sue 0.3 mg kit as directed intramuscularly once Taking Augmentin 500-125 MG Tablet 1 tablet Orally every 12 hrs Taking Wegovy 0.5 MG/0.5ML Solution Auto-injector 0.5 mL Subcutaneous Taking Vitamin D3 10 MCG TABLET 1 TAB(S) ORALLY ONCE A DAY , Notes to Pharmacist: patient takes 4000mcg daily *Please review and pick correct strength-formulation from [employer] options. If intended option is not shown, discontinue and re-order from Quick Search*Taking Fluticasone Propionate 50 MCG/ACT Suspension 2 spray(s) in each nostril BID Taking Fexofenadine HCl 180 MG Tablet 1 tab(s) orally twice a day Taking Xolair 150 MG Solution Reconstituted as directed 300 mg subcutaneously every 4 weeks Taking Lisinopril 20 MG Tablet 1 tab(s) orally once a day Taking Vitamin B-12 100 MCG Tablet 1 tab(s) orally once a day Taking Microgestin 1.5/30 1.5-30 MG-MCG Tablet 1 tab(s) orally once a day Taking Montelukast Sodium 10 MG Tablet TAKE 1 TABLET BY MOUTH DAILY Not-Taking/PRNVITAMIN D3 10 mcg tablet 1 tab(s) orally once a day , Notes to Pharmacist: patient takes 4000mcg dailyMONTELUKAST 10 mg tablet 1 tab(s) orally once a day CETIRIZINE 10 mg tablet 1 tab(s) orally twice a day LISINOPRIL 20 mg tablet 1 tab(s) orally once a day VITAMIN D3 10 mcg tablet 1 tab(s) orally once a day , Notes to Pharmacist: patient takes 4000mcg dailyMONTELUKAST 10 mg tablet 1 tab(s) orally once a day FLUTICASONE NASAL 50 mcg/inh spray 2 spray(s) in each nostril BID CETIRIZINE 10 mg tablet 1 tab(s) orally twice a day PEPCID 20 mg tablet 1 tab(s) orally 2 times a day MONTELUKAST 10 mg tablet 1 tab(s) orally once a day FEXOFENADINE 180 mg tablet 1 tab(s) orally twice a day VITAMIN B-12 100 mcg tablet 1 tab(s) orally once a day MICROGESTIN 1.5/30 30 mcg-1.5 mg tablet 1 tab(s) orally once a day AUVI -Q 0.3 mg kit as directed intramuscularly once EPIPEN 2-SUE 0.3 mg kit as directed intramuscularly once Cetirizine HCl 10 MG Tablet 1 tab(s) orally twice a day Auvi-Q 0.3 MG/0.3ML Solution Auto-injector as directed intramuscularly once Not-Taking/PRN VITAMIN D3 10 mcg tablet 1 tab(s) orally once a day , Notes to Pharmacist: patient takes 4000mcg dailyNot-Taking/PRN MONTELUKAST 10 mg tablet 1 tab(s) orally once a day Not-Taking/PRN CETIRIZINE 10 mg tablet 1 tab(s) orally twice a day Not- Taking/PRN LISINOPRIL 20 mg tablet 1 tab(s) orally once a day Not-Taking/PRN VITAMIN D3 10 mcg tablet 1 tab(s) orally once a day , Notes to Pharmacist: patient takes 4000mcg dailyNot-Taking/PRN MONTELUKAST 10 mg tablet 1 tab(s) orally once a day Not-Taking/PRN FLUTICASONE NASAL 50 mcg/inh spray 2 spray(s) in each nostril BID Not-Taking/PRN CETIRIZINE 10 mg tablet 1 tab(s) orally twice a day Not- Taking/PRN PEPCID 20 mg tablet 1 tab(s) orally 2 times a day Not-Taking/PRN MONTELUKAST 10 mg tablet 1 tab(s) orally once a day Not-Taking/PRN FEXOFENADINE 180 mg tablet 1 tab(s) orally twice a day Not-Taking/PRN VITAMIN B-12 100 mcg tablet 1 tab(s) orally once a day Not-Taking/PRN MICROGESTIN 1.5/30 30 mcg-1.5 mg tablet 1 tab(s) orally once a day Not-Taking/PRN AUVI -Q 0.3 mg kit as directed intramuscularly once Not- Taking/PRN EPIPEN 2-SUE 0.3 mg kit as directed intramuscularly once Not-Taking/PRN Cetirizine HCl 10 MG Tablet 1 tab(s) orally twice a day Not-Taking/PRN Auvi-Q 0.3 MG/0.3ML Solution Auto-injector as directed intramuscularly once Objective: * Vitals: B P:135/87mm Hg, HR:95/min, Pulse Oximetry:99%, CU-Q2oL: 23, UAS7: 0, Ht: 66 in. Assessment: * Assessment: 1. O ther Urticaria - L50.8 (Primary) Plan: * Treatment: * Procedures: X OLAIR (omalizumab) Administration: Dosing Time / Vitals Swati Tatum 07/15/2024 08:27:06 AM JOURNEYMAN PIPE WELDER >, Time of administration, See initial vitals. Dosage 3 00 mg (60 units). Location L UA, KEVIN. Reaction N one. Frequency q 4 weeks. AIE (epinephrine) on patient? y es. Lot Number / Expiration L ot Number(s): [id number] , Expiration Date: 06/2025. Post-procedural check-out: Swati Tatum 07/15/2024 09:08:19 AM JOURNEYMAN PIPE WELDER >, Vital signs taken 30 minutes after dosing administration: BP: 120/80 H R: 89 SPO2: 98. Medication Source X OLAIR Source B michael and Kendall ruiz Verification: W jim pulled drug (please type staff name in notes)? belen Medical necessity for in-housing management officer: T he patient or caregiver is not suitable, not competent or is physically unable to administer the XOLAIR product FDA-labeled for self-administration for the following reason(s): T he location and circumstances for self-administration are not adequate for the potential treatment of anaphylaxis should that arise * Procedure Codes: 9 6401 CHEMO, ANTI-NEOPL, SQ/IM, Units: 2.00 , Modifiers: 76 52951 PT-FOCUSED HLTH RISK [id number] NOC Xolair 150 mg PFS, Units: 60.00 , Modifiers: JZ * Preventive Medicine: Ryan piña boxed warning on prescribed medication: Xolair: anaphylaxis, CV disease, malignancy. After discussing risks/benefits/alternatives, patient has agreed to start/continue Xolair therapy. No new symptoms of cardiac disease, malignancy and no symptoms of anaphylaxis. * Follow Up: A s scheduled for Xolair * Billing Information: * Visit Code: * Procedure Codes: 63087 CHEMO, ANTI-NEOPL, SQ/IM. Units: 2.00. Modifiers: 76 72410 PT-FOCUSED HLTH RISK ASSMT. J2357 NOC Xolair 150 mg PFS. Units: 60.00. Modifiers: JZ * NEYMAN PIPE WELDER Electronically co-signed by Mario Alberto Torres MD, FAAAAI on 07/20/2024 at 12:27 PM JOURNEYMAN PIPE WELDER Sign off status: Completed true * Provider: Dany Torres MD Date: 0 07/15/2024 Generated for Hernando duran/Brayan/Ashlieitting on: 0 08/11/2024 11:23 AM JOURNEYMAN PIPE WELDER History and Physical Notes * HPI (History of Present Illness) Category Sub-Category Detail Notes Category Not es *Introduction The patient is here for scheduled immunotherapy with Xolair. Please see the attached specialty form regarding the specifics of the administration of this medication. As per our protocol, they must undergo a screening health questionnaire (medication changes, reaction(s) to last immunotherapy dose(s), current health status, ACT (if appropriate), self-injectable epinephrine on patient(?) and peak flow (if appropriate)). Also, the patient must wait in our office under direct observation of physician and staff for 2 hours after the first 3 doses, then 30 minutes after receiving this medication thereafter. Furthermore, every patient must have an epinephrine pen (self-injectable) with them at all times given boxed warning of Xolair.
--- OUTSIDE RECORDS SUMMARY | 2024-08-11 11:23 | XMS_ITS | Patient Health Record ---
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 Case # is [id number] Call Back [phone], Korina Rodríguez 09/22/2023 12:47:11 PM > refaxed Hives score to [phone] with REF# [id number], Seema Andersen 09/30/2023 10:57:53 AM > PA was denied due to not having the Hives score. This is inaccurate. The UAS score was on the 08/19/23 CVN submitted with the PA request. Referral Priority Routine Medications Medication SIG (Take, Route, Frequency, Duration) Notes Start Date End Date Status VITAMIN B-12 100 mcg 1 tab(s) orally once a day for 30 day(s) Not-Taking MICROGESTIN 1.5/30 30 mcg-1.5 mg 1 tab(s) orally once a day for 28 day(s) Not-Taking MONTELUKAST 10 mg 1 tab(s) orally once a day for 30 days Not-Taking FEXOFENADINE 180 mg 1 tab(s) orally twice a day for 30 days Not-Taking CETIRIZINE 10 mg 1 tab(s) orally twic e a day for 30 days Not-Taking PEPCID 20 mg 1 tab(s) orally 2 times a day for 30 days Not-Taking MONTELUKAST 10 mg 1 tab(s) orally once a day for 30 day(s) Not-Taking FLUTICASONE NASAL 50 mcg/inh 2 spray(s) in each nostril BID for 30 day(s) Not-Taking FLUTICASONE NASAL 50 mcg/inh 2 spray(s) in each nostril twice a day for 30 days Active Pepcid 20 mg 1 tab(s) orally 2 times a day for 30 days Active AUVI -Q 0.3 mg as directed intramuscularly once for 30 days 10/20/2023 Not-Taking EpiPen 2-Raphael 0.3 mg as directed intramuscularly once for 30 days Active EPIPEN 2-RAPHAEL 0.3 mg as directed intramuscularly once for 30 days 10/20/2023 Not-Taking Auvi-Q 0.3 MG/0.3ML as directed intramuscularly once for 30 days 10/20/2023 Not-Taking Cetirizine HCl 10 MG 1 tab(s) orally twice a day for 30 days Not-Taking Vitamin B-12 100 MCG 1 tab(s) orally once a day for 30 day(s) Active Microgestin 1.5/30 1.5-30 MG-MCG 1 tab(s) orally once a day for 28 day(s) Active VITAMIN D3 10 mcg 1 tab(s) orally once a day for 30 day(s) patient takes 4000mcg daily Not-Taking MONTELUKAST 10 mg 1 tab(s) orally once a day for 30 day(s) Not-Taking PEPCID 20 mg 1 tab(s) orally 2 times a day for 30 days Active Augmentin 500-125 MG 1 tablet Orally every 12 hrs Active FEXOFENADINE 180 mg 1 tab(s) orally twice a day for 30 days Active XOLAIR 150 mg as directed 300 mg subcutaneously every 4 weeks for 28 days Active EPIPEN 2-RAPHAEL 0.3 mg as directed intramuscularly once for 30 days Active MONTELUKAST 10 mg 1 tab(s) orally once a day for 30 days Active Montelukast Sodium 10 MG TAKE 1 TABLET BY MOUTH DAILY Orally Once a day for 30 days Active Xolair 150 MG as directed 300 mg subcutaneously every 4 weeks for 28 days Active Lisinopril 20 MG 1 tab(s) orally once a day Active Fluticasone Propionate 50 MCG/ACT 2 spray(s) in each nostril BID for 30 day(s) Active Fexofenadine HCl 180 MG 1 tab(s) orally twice a day for 30 days Active VITAMIN D3 10 mcg 1 tab(s) orally once a day for 30 day(s) patient takes 4000mcg daily Not-Taking Wegovy 0.5 MG/0.5ML 0.5 mL Subcutaneous Active Vitamin D3 10 MCG 1 TAB(S) ORALLY ONCE A DAY for 30 DAY(S) patient takes 4000mcg daily *Please review and pick correct strength-formula tion from [place] 100e options. If intended option is not shown, discontinue and re-order from Quick Search* Active CETIRIZINE 10 mg 1 tab(s) orally twic e a day for 30 days Not-Taking LISINOPRIL 20 mg 1 tab(s) orally once a day Not-Taking Immunizations Vaccine Route Administration Date Status Comme nts NOC Tdap Unknown 02/26/2017 Administered Portal Isidro hernadez Social History Tobacco Use: Social History Observation Description Date Details (start date - stop date) Never Smoker NA - NA Tobacco Control (Standard) Question Answer Notes Tobacco use: Nonsmoker Problems Problem Type SNOMED Code ICD Code Onset Dates Problem Status W/U Status Risk Notes Problem Chronic rhinitis (98339706) Chronic rhinitis (J31.0) Active confirmed Problem Hypertrophy of nasal turbinates (69047871) Hypertrophy of nasal turbinates (J34.3) Active confirmed Problem Uncomplicated moderate persistent asthma (570592233) Moderate persistent asthma, uncomplicated (J45.40) Active confirmed Problem Uncomplicated severe persistent asthma (781288624) Severe persistent asthma, uncomplicated (J45.50) Active confirmed Problem Dermatographic urticaria (4263470) 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) Active confirmed Problem Urticaria (758725149) Other urticaria (L50.8) Active confirmed Problem Ingestion dermatitis caused by food (341973807) Dermatitis due to ingested food (L27.2) Active confirmed Vital Signs Respiratory Rate 18 /min 11/17/2023 Blood pressure diastolic 87 mm Hg 07/15/2024 Oximetry 99 % 07/15/2024 Height 66 in 07/15/2024 Blood pressure systolic 135 mm Hg 07/15/2024 Weight 241.6 lbs 05/17/2024 BMI 38.99 kg/m2 05/17/2024 Encounters Encounter Location Date Provider Diagnosis [address] [address] 12/13/2023 Provider [facility] Other urticaria L50.8 and Hypertrophy of nasal turbinates J34.3 [facility] [address] [place] [address] [address] [address] 08/19/2023 Kaleb Greff Dermatographic urticaria L50.3 ; Other urticaria L50.8 ; Hypertrophy of nasal turbinates J34.3 ; Chronic rhinitis J31.0 ; Dermatitis due to ingested food L27.2 and Elevated blood-pressure reading, without diagnosis of hypertension R03.0 [facility] [address] [place] [address] [address] [address] 10/20/2023 Kaleb Greff Dermatographic urticaria L50.3 ; Other urticaria L50.8 ; Hypertrophy of nasal turbinates J34.3 ; Chronic rhinitis J31.0 ; Dermatitis due to ingested food L27.2 and Elevated blood-pressure reading, without diagnosis of hypertension R03.[address] [address] 11/17/2023 Kaleb Greff Dermatographic urticaria L50.3 ; Other urticaria L50.8 ; Hypertrophy of nasal turbinates J34.3 ; Chronic rhinitis J31.0 ; Dermatitis due to ingested food L27.2 and Elevated blood-pressure reading, without diagnosis of hypertension R03.[address] [facility] [address] [address] 12/15/2023 Kaleb Greff Dermatographic urticaria L50.3 ; Other urticaria L50.8 ; Hypertrophy of nasal turbinates J34.3 ; Chronic rhinitis J31.0 ; Dermatitis due to ingested food L27.2 and Elevated blood-pressure reading, without diagnosis of hypertension R03.0 [facility] [address] [place] [phone] 01/13/2024 Kaleb Greff Dermatographic urticaria L50.3 ; Other urticaria L50.8 ; Hypertrophy of nasal turbinates J34.3 ; Chronic rhinitis J31.0 ; Dermatitis due to ingested food L27.2 and Elevated blood-pressure reading, without diagnosis of hypertension R03.[address] [address] 02/12/2024 Mario Alberto Win Other Urticaria L50. [address] [address] 03/11/2024 Mario Alberto Win Other Urticaria L50. [address] [address] 04/15/2024 Mario Alberto Torres Other Urticaria L50. [address] [address] 05/17/2024 Kaleb Greff Dermatographic urticaria L50.3 ; Other urticaria L50.8 ; Hypertrophy of nasal turbinates J34.3 ; Chronic rhinitis J31.0 ; Dermatitis due to ingested food L27.2 and Elevated blood-pressure reading, without diagnosis of hypertension R03.0 [facility] [address] [place] [address] 06/17/2024 Mario Alberto Torres Other Urticaria L50. [address] [address] 07/15/2024 Mario Alberto Torres Other Urticaria L50. [address] [address] 2024 Kaleb Radha [address] [address] 07/15/2024 Kaleb Radha Other urticaria L50. 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 Treat as below 08/19/2023 Other urticaria (ICD-10 - L50.8) Noted life-long history of recurrent hives without clear trigger. No relation to foods or medications. 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 No other history of swelling. Currently with 1 breakthrough episode a day. Feels hives are worse to bra and underwear lines. History, presentation, and timeframe of symptoms > 6 weeks c/w chronic idiopathic urticaria. In response, we elected to start 4x FDA approved dosing of antihistamines though still with daily breakthrough. Given this, will plan to start BI for Xolair. 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 Treat as below 10/20/2023 Other urticaria (ICD-10 - L50.8) Noted life-long history of recurrent hives without clear trigger. No relation to foods or medications. 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 No other history of swelling. Currently with 1 breakthrough episode a day. Feels hives are worse to bra and underwear lines. History, presentation, and timeframe of symptoms > 6 weeks c/w chronic idiopathic urticaria. In response, we elected to start 4x FDA approved dosing of antihistamines though still with daily breakthrough. She was educated regarding the risks/benefits/alt ernatives to Xolair. We also reviewed again today 'boxed warning' for anaphylaxis as well as risk for malignancy and CV disease. She was monitored for the required 2 hour period and discharged with AIE on hand, advised to carry at all times. AIE education given, Keep AIE on hand at all times. 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 Treat as below 11/17/2023 Other urticaria (ICD-10 - L50.8) Noted life-long history of recurrent hives without clear trigger. No relation to foods or medications. 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 No other history of swelling. Currently with 1 breakthrough episode a day. Feels hives are worse to bra and underwear lines. History, presentation, and timeframe of symptoms > 6 weeks c/w chronic idiopathic urticaria. In response, we elected to start 4x FDA approved dosing of antihistamines though still with daily breakthrough. Already noticing improvement since starting Xolair. She was again educated regarding the risks/benefits/alt ernatives to Xolair. We also reviewed again today 'boxed warning' for anaphylaxis as well as risk for malignancy and CV disease. She was monitored for the required 2 hour period and discharged with AIE on hand, advised to carry at all times. Tolerated procedure today without isuse. Keep AIE on hand at all times. 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 Treat as below 12/15/2023 Other urticaria (ICD-10 - L50.8) Noted life-long history of recurrent hives without clear trigger. No relation to foods or medications. 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 No other history of swelling. Currently with 1 breakthrough episode a day. Feels hives are worse to bra and underwear lines. History, presentation, and timeframe of symptoms > 6 weeks c/w chronic idiopathic urticaria. In response, we elected to start 4x FDA approved dosing of antihistamines though still with daily breakthrough. Already noticing improvement since starting Xolair. Now down to breakthrough 2-3 times a week. Plan to continue with current regimen. She was again educated regarding the risks/benefits/alt ernatives to Xolair. We also reviewed again today 'boxed warning' for anaphylaxis as well as risk for malignancy and CV disease. She was monitored for the required 2-hour period and discharged with AIE on hand, advised to carry at all times. Tolerated procedure today without issue. Keep AIE on hand at all times. 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 Treat as below 01/13/2024 Other urticaria (ICD-10 - L50.8) Noted life-long history of recurrent hives without clear trigger. No relation to foods or medications. 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 No other history of swelling. Currently with 1 breakthrough episode a day. Feels hives are worse to bra and underwear lines. History, presentation, and timeframe of symptoms > 6 weeks c/w chronic idiopathic urticaria. In response, we elected to start 4x FDA approved dosing of antihistamines though still with daily breakthrough. She continues to see improvement since starting Xolair. Noticing decreased intensity since last visit. Plan to continue with current regimen. She was again educated regarding the risks/benefits/alt ernatives to Xolair. We also reviewed again today 'boxed warning' for anaphylaxis as well as risk for malignancy and CV disease. She was monitored for the required 2-hour period and discharged with AIE on hand, advised to carry at all times. Tolerated procedure today without issue. Keep AIE on hand at all times. 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 Treat as above 05/17/2024 Other urticaria (ICD-10 - L50.8) Noted life-long history of recurrent hives without clear trigger. No relation to foods or medications. 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 No other history of swelling. Currently with 1 breakthrough episode a day. Feels hives are worse to bra and underwear lines. History, presentation, and timeframe of symptoms > 6 weeks c/w chronic idiopathic urticaria. In response, we elected to start 4x FDA approved dosing of antihistamines though still with daily breakthrough. She continues to see improvement since starting Xolair. She feels hives are essentailly controlled now outside of recent hospitalization due to GI infection of which she is undergoing additional work-up. She was again educated regarding the risks/benefits/alt ernatives to Xolair. We also reviewed again today 'boxed warning' for anaphylaxis as well as risk for malignancy and CV disease. She was monitored for the required 2-hour period and discharged with AIE on hand, advised to carry at all times. Tolerated procedure today without issue. Keep AIE on hand at all times. Plan to hold SIngulair. Restart if hives return. Return in 4 weeks for dosing and 3 months for E&M 06/17/2024 Other Urticaria (ICD-10 - L50.8) 07/15/2024 Other Urticaria (ICD-10 - L50.8) 07/15/2024 Other urticaria (ICD-10 - L50.8) 05/17/2024 Hypertrophy of nasal turbinates (ICD-10 - J34.3) Recurrent upper airway symptoms concerning for ARC. We attempted SPT today to common aeroallergens though unfortunately was determiend to be dermatographic. Not interested in ImmunoCAPs today. Plan to attempt SPT in the future when able to come off antihistamines. Increase Flonase use given increased PND 01/13/2024 Hypertrophy of nasal turbinates (ICD-10 - J34.3) Recurrent upper airway symptoms concerning for ARC. We attempted SPT today to common aeroallergens though unfortunately was determiend to be dermatographic. Not interested in ImmunoCAPs today. Plan to attempt SPT in the future when able to come off antihistamines. Increase Flonase use given increased PND 12/13/2023 Hypertrophy of nasal turbinates (ICD-10 - J34.3) 12/15/2023 Hypertrophy of nasal turbinates (ICD-10 - J34.3) Recurrent upper airway symptoms concerning for ARC. We attempted SPT today to common aeroallergens though unfortunately was determiend to be dermatographic. Not interested in ImmunoCAPs today. Plan to attempt SPT in the future when able to come off antihistamines. 11/17/2023 Hypertrophy of nasal turbinates (ICD-10 - J34.3) Recurrent upper airway symptoms concerning for ARC. We attempted SPT today to common aeroallergens though unfortunately was determiend to be dermatographic. Not interested in ImmunoCAPs today. Plan to attempt SPT in the future when able to come off antihistamines. 10/20/2023 Hypertrophy of nasal turbinates (ICD-10 - J34.3) Recurrent upper airway symptoms concerning for ARC. We attempted SPT today to common aeroallergens though unfortunately was determiend to be dermatographic. Not interested in ImmunoCAPs today. Plan to attempt SPT in the future when able to come off antihistamines. 08/19/2023 Hypertrophy of nasal turbinates (ICD-10 - J34.3) Recurrent upper airway symptoms concerning for ARC. We attempted SPT today to common aeroallergens though unfortunately was determiend to be dermatographic. Not interested in ImmunoCAPs today. Plan to attempt SPT in the future when able to come off antihistamines. 08/19/2023 Chronic rhinitis (ICD-10 - J31.0) as above 10/20/2023 Chronic rhinitis (ICD-10 - J31.0) as above 12/15/2023 Chronic rhinitis (ICD-10 - J31.0) as above 11/17/2023 Chronic rhinitis (ICD-10 - J31.0) as above 01/13/2024 Chronic rhinitis (ICD-10 - J31.0) as above 05/17/2024 Chronic rhinitis (ICD-10 - J31.0) as above 01/13/2024 Dermatitis due to ingested food (ICD-10 - L27.2) Noted oral itching with ingestion of walnut, pecans, and [place] nuts. Able to tolerate all other TNs/PN without issue. Denies any other symptoms at the time. History sounds more c/w with OAS though unable to confirm due to dermatographia on SPT. Consider ImmunoCAPs if issues persist 12/15/2023 Dermatitis due to ingested food (ICD-10 - L27.2) Noted oral itching with ingestion of walnut, pecans, and [place] nuts. Able to tolerate all other TNs/PN without issue. Denies any other symptoms at the time. History sounds more c/w with OAS though unable to confirm due to dermatographia on SPT. Consider ImmunoCAPs if issues persist 05/17/2024 Dermatitis due to ingested food (ICD-10 - L27.2) Noted oral itching with ingestion of walnut, pecans, and [place] nuts. Able to tolerate all other TNs/PN without issue. Denies any other symptoms at the time. History sounds more c/w with OAS though unable to confirm due to dermatographia on SPT. Consider ImmunoCAPs if issues persist 10/20/2023 Dermatitis due to ingested food (ICD-10 - L27.2) Noted oral itching with ingestion of walnut, pecans, and [place] nuts. Able to tolerate all other TNs/PN without issue. Denies any other symptoms at the time. History sounds more c/w with OAS though unable to confirm due to dermatographia on SPT. Consider ImmunoCAPs if issues persist 11/17/2023 Dermatitis due to ingested food (ICD-10 - L27.2) Noted oral itching with ingestion of walnut, pecans, and [place] nuts. Able to tolerate all other TNs/PN without issue. Denies any other symptoms at the time. History sounds more c/w with OAS though unable to confirm due to dermatographia on SPT. Consider ImmunoCAPs if issues persist 08/19/2023 Dermatitis due to ingested food (ICD-10 - L27.2) Noted oral itching with ingestion of walnut, pecans, and [place] nuts. Able to tolerate all other TNs/PN without issue. Denies any other symptoms at the time. History sounds more c/w with OAS though unable to confirm due to dermatographia on SPT. Consider ImmunoCAPs if issues persist 08/19/2023 Elevated blood-pressure reading, without diagnosis of hypertension (ICD-10 - R03.0) BP elevated today without symptoms of urgency or emergency. Continue serial checks and follow-up with PCP 10/20/2023 Elevated blood-pressure reading, without diagnosis of hypertension (ICD-10 - R03.0) BP elevated today without symptoms of urgency or emergency. Continue serial checks and follow-up with PCP 11/17/2023 Elevated blood-pressure reading, without diagnosis of hypertension (ICD-10 - R03.0) BP elevated today without symptoms of urgency or emergency. Continue serial checks and follow-up with PCP 01/13/2024 Elevated blood-pressure reading, without diagnosis of hypertension (ICD-10 - R03.0) BP elevated today without symptoms of urgency or emergency. Continue serial checks and follow-up with PCP 12/15/2023 Elevated blood-pressure reading, without diagnosis of hypertension (ICD-10 - R03.0) BP elevated today without symptoms of urgency or emergency. Continue serial checks and follow-up with PCP 05/17/2024 Elevated blood-pressure reading, without diagnosis of hypertension (ICD-10 - R03.0) BP elevated today without symptoms of urgency or emergency. Continue serial checks and follow-up with PCP 02/12/2024 Other 03/11/2024 Other 04/15/2024 Other 06/17/2024 Other 07/15/2024 Other Plan Of Treatment Next Appt Details Provider Name:Mario Alberto Torres , 08/12/2024 08:00:00 AM, [address] [facility], [address], [place], [address], Insurance Providers Payer Name Payer Address Payer Phone Subscriber Number Group Number Insured Name Patient Relationship to Insured Coverage Start Date Coverage End Date [facility] [address] [place] [address] [id number] Deluna Self - patient is the insured 6 Medical (General) History Medical History History ICD Code Vitamin D Deficiency Polycysistic Ovarian Syndrome Dermatitis due to ingested food L27.2 Hypertrophy of nasal turbinates J34.3 Chronic rhinitis J31.0 Dermatographic urticaria L50.3 Other urticaria L50.8 Surgical History Surgery Date(Month/Year) Gall bladder removal 12/28/2001 Invasive removal of kidney stone 014 Hospitalization History Reason Date(Month/Year) Infection Child 10/27/2001
--- OUTSIDE RECORDS SUMMARY | 2024-08-11 11:23 | XMS_ITS | Data Portability ---
Author Organization [facility], Main Office Address [address] [place] [address] Care Team Providers Care Crown Presser Name Role Phone ROSALBA BELLE Primary Care Provider [phone] ROSALBA BELLE Referring Provider [phone] Assessment Encounter Date Assessment Date Assessment LastModified by Organization Details LastModified Time 12/18/2022 12/18/2022 Labs done per [employer]. Pt to check what is due and to eliminate duplicates prior to lab draw- aware generally labs done every 366 days. Not available 12/18/2022 09:52:07 10/27/2023 10/27/2023 Flu shot: 03/2023 COVID vaccines: 2020, 2020 Tdap: 01/2017 Mammogram: 03/2021, required biopsy. Repeated with Dr. Arroyo in 04/17/2023, clear WWE: 04/04/2023 [email or web address] Not available 10/27/2023 16:03:35 03/03/2024 03/03/2024 I have reconciled the patient's medications post their discharge from inpatient facility. Not available 03/03/2024 15:18:58 Plan of Treatment Reminders Order Date Submit Date Provider Last Modified By Organization Details Last Modified Time Details Appointments None recorded. Lab lipid panel, serum 2022 023 [facility] ([facility]), [address] [place], [address], 08:11:55 urinalysis, dipstick 2022 023 [facility], [address] [place] [address] [place], [address], 3 09:59:55 TSH, serum or plasma [address] [facility] (Lab), [address] [place], [address], 3 23:56:16 glycohemogl obin, total, blood [address] (Lab), [address] [place], [address], 3 08:11:55 CMP, serum or plasma [address] [facility] (Lab), [address] [place], [address], 3 23:56:16 CBC w/ auto diff [address] [facility] (Lab), [address] [place], [address], 3 23:56:16 lipid panel, serum [address] (Lab), [address] [place], [address], 3 07:59:04 lipid panel, serum [address] (Lab), [address] [place], [address], 3 08:16:03 Referral None recorded. Procedures None recorded. Surgeries None recorded. Imaging XR, kidney + ureter + bladder 2022 023 [email or web address] Not available 3 08:56:33 Medication Orders meloxicam 15 mg tablet 2023 024 [place] [id number], [address], [place], [place], [id number], 4 16:06:34 Wegovy 0.25 mg/0.5 mL subcutaneou s pen injector 2023 024 [id number], [address], [place], [place], [id number], 4 15:21:54 lisinopril 20 mg tablet 2023 024 [id number], [address], [place], [place], [id number], 15:38:55 Patient TargetsNo targets recorded. Patient Instructions Encounter Date Encounter Id Patient Instructions Last Modified By Organization Details Last Modified Time 12/18/2022 [id number] INFLUENZA VACCIN E TD/TDAP PNEUMONIA VACCINE Ordered Recommend ed today, patient declined Patient will get at local pharmacy/health department Recomm ended at age 65 SHINGLES Not indicated MAMMOGRAM: Last Mammogram __ No screening necessary patient is up to date DEXA SCAN Recommended today, but patient declined Ordered No screening indicated CERVICAL SCREENING/PELVIC EXAMINATION COLORECTAL SCREENING: Last Colonoscopy DEPRESSION SCREENING BMI Morbid Obesity continue your current weight loss efforts try to lose 5% of your body weight try to lose 10% of your body weight try to lose 15% of your body weight NUTRITION Heart Healthy Diet Recommendati on of a 1500 caloric intake for weight loss is advised PHYSICAL ACTIVITY Need more exercise/physical activity minimum of 10-20 minutes of activity that causes mild breathlessness/da y minimum of 20-30 minutes activity that causes mild breathlessness/da y minimum of 30-40 minutes of activity that causes mild breathlessness/da y VISION ALCOHOL USE TOBACCO USE LUNG CANCER SCREENING SEXUALLY ACTIVE HEPATITIS C SCREENING GLUCOSE SCREENING Ordered LIPID SCREENING Ordered Not available 12/18/2022 09:51:36 1 mo fu htn, obese wellness in 1 year after 12/20/23 Not available 12/18/2022 09:49:52 01/17/2023 [id number] FU in 3 mo for b p eval, hyperlipidemia, obese Not available 01/17/2023 09:29:24 04/18/2023 [id number] FU in 3 mo for b p eval, hyperlipidemia, obese Not available 04/18/2023 08:13:22 03/03/2024 [id number] sciatica: exercises [email or web address] Not available 03/03/2024 15:59:20 Thank you for your visit to our office today. We would like to request that you reach out to your referring or previous provider and request that they send us a Summary of Care in electronic form, so that we may have it on file in your medical record. At your visit, we had the medical records we needed to provide you with the best possible care; however, for insurance purposes, an electronic Summary of Care is beneficial. Thank you for your assistance in obtaining this information and we look forward to providing continued care to you. Please review your medication list from the Summary of Care for this visit. If there are any differences from what you are currently taking at home, please call us to discuss. Not available 03/03/2024 15:18:58 Homebound Status : {{Patient has an inability to leave the home without a taxing effort and assistance from another person Does not meet homebound status*}} Required Home Health Services: {{none* shelter, physical therapy, occupational therapy shelter, physical therapy shelter}} Durable Medical Equipment needed: {{cane walker wal ker with seat manual wheelchair bedsid e commode oxygen no ne#}} Billing Guidelines CPT code 37419- Transitional Care Management services with moderate medical decision complexity (ytqn-wn-ugad visit within 14 days of discharge). CPT code 17787- Transitional Care Management services with high medical decision complexity (xlgk-bq-xfnw visit within 7 days of discharge). [email or web address] Not available 03/03/2024 15:59:06 Reason for Referral None Reported. Results Created Date Observation Date Name Description Value Unit Range Abnormal Flag Note LastModifiedBy Organization Detail LastModifiedTime 12/19/19 23 12/18/2022 urina lysis , dipst ick Leukocytes (reference range: negative emmanuelle/ l) Trace Not Available [facility] [place] [address] [place] [address], [place], [address], 12/18/2022 09:46:38 12/19/19 23 12/18/2022 urina lysis , dipst ick Nitrite (reference rage: negative mg/dl) negati ve Not Available [address], [address], 12/18/2022 09:46:38 12/19/19 23 12/18/2022 urina lysis , dipst ick Urobilinogen (reference range: 0.2-1 mg/dl) 0.2 Not Available [address], [address], 12/18/2022 09:46:38 12/19/19 23 12/18/2022 urina lysis , dipst ick Protein (reference range: negative mg/dl) Trace Not Available [address], [address], 12/18/2022 09:46:38 12/19/19 23 12/18/2022 urina lysis , dipst ick pH (reference range: 5-7) 6.0 Not Available [address], [address], 12/18/2022 09:46:38 12/19/19 23 12/18/2022 urina lysis , dipst ick Blood (reference range: negative Chano/ l) Modera te Not Available [address], [address], 12/18/2022 09:46:38 12/19/19 23 12/18/2022 urina lysis , dipst ick Specific [place] (reference range: 1.005-1.030) 1.030 Not Available [facility], [address], 12/18/2022 09:46:38 12/19/19 23 12/18/2022 urina lysis , dipst ick Ketone (reference range: negative mg/dl) Negati ve Not Available [address], [address], 12/18/2022 09:46:38 12/19/19 23 12/18/2022 urina lysis , dipst ick Bilirubin (reference range: negative mg/dl) Negati ve Not Available [address], [address], 12/18/2022 09:46:38 12/19/19 23 12/18/2022 urina lysis , dipst ick Glucose (reference range: negative mg/dl) Negati ve Not Available [address], [address], 12/18/2022 09:46:38 12/19/19 23 12/18/2022 urina lysis , dipst ick Appearance Clear Not Available [address], [address], 12/18/2022 09:46:38 12/19/19 23 12/18/2022 urina lysis , dipst ick Color Yellow Not Available [address], [address], 12/18/2022 09:46:38 12/19/19 XR, abdom en, 1 view [facility] [address], [place] [address] [place] t Name: LADONNA ELI Access ion #: [id number] Sex: F : 1979 2 Locati on: RA2 Attend ing Physic shay: EDGARDO BELLE Orderi ng Physic shay: EDGARDO BELLE Exam Date: 023 11:27 AM Exam Name: XR ABDOME N 1V Admitt ing Diagno sis(es ): RADIOL OGY REPORT - FINAL EXAM: XR ABDOME N 1V HISTOR Y: spasm of bladde r pelvic pain COMPAR AREN: None availa ble. TECHNI QUE: AP views of the abdome n were perfor med. FINDIN GS: Examin ation of the abdome n in supine positi on reveal s a normal bowel gas patter n withou t radiog raphic eviden ce of mechan ical bowel obstru ction. There is no eviden ce of abnorm al calcif icatio n. The liver and spleen are not enlarg ed. No air is apprec iated in the biliar y tree. Cholec ystect shira clips noted. Page 1 of 2 [facility] Pati t Name: LADONNA ELI Access ion #: [id number] Sex: F : 1979 2 Exam Date: 023 11:27 AM Exam Name: XR ABDOME N 1V Admitt ing Diagno sis(es ): IMPRES KATHY: No radiog raphic eviden ce of abdomi nal diseas e. Create d and electr onical ly signed by: Dain whitney MD Signed Date: 023 1:35 PM (CT) Dictat ed by: Dain whitney MD DD: 023 1:35 PM (CT) DT: 023 1:35 PM (CT) Page 2 of [address] (Imaging) [address] [place], [address], 12/18/2022 15:33:37 04/04/20 24 04/04/2024 CT, abdom en + pelvi s, w/ contr ast No observ ation record ed. [facility] [address], [place], [address], 04/05/2024 08:42:49 05/08/20 24 05/07/2024 CT, abdom en + pelvi s, w/ contr ast No observ ation record ed. [facility] [address], [place], [address], 05/10/2024 16:35:41 Result Notes None recorded. Problems Name Problem SNOMED Code Status Onset Date Resolution Date Notes Provider Name and Address Organization Details Recorded Time Plantar fasciitis of right foot 82631407193 802583 Active 2021 Not Available [facility] 3 07:30:32 Bacterial conjuncti vitis 819673412 Completed Not Available [facility] 3 07:30:32 Bronchiti s 48272190 Active 2021 Not Available [facility] 3 07:30:32 Strain of neck muscle 840287391 Completed 201602/26/2017 Not Available [facility] 3 07:30:32 Disorder of vitamin D 550311361 Completed Not Available [facility] 3 07:30:32 Dizziness 898498867 Completed 201602/26/2017 Not Available [facility] 3 07:30:32 Obese 457713748 Active 2016 Not Available [facility] 3 07:30:32 Obesity 519729828 Active 2016 Not Available [facility] 3 07:30:32 Itching of skin 424061275 Active 2017 Not Available [facility] 3 07:30:32 History of calculus of kidney 415124914 Active 2016 Not Available [facility] 3 07:30:32 Laryngiti s 67677403 Active 2021 Not Available [facility] 3 07:30:33 Cough 22049952 Active 2021 Not Available [facility] 3 07:30:33 Renal colic 9269713 Completed Not Available [facility] 3 07:30:33 Diabetes mellitus 30231639 Completed Not Available [facility] 3 07:30:33 Ex-smoker 7452545 Active 2016 Not Available [facility] 3 07:30:33 Kidney stone 92922466 Active Not Available [facility] 3 07:30:33 Family history of cancer of colon 612605601 Active 2022 Rosalba Belle NP [address], [place], [address] , [email or web address] [facility] 3 09:43:59 Family history of breast cancer 256231947 Active 2022 Rosalba Belle NP [address], [place], [address] , [employer] [facility] 3 09:44:01 Spasm of urinary bladder 500988936 Active 2022 Rosalba Belle NP [address], [place], [address] , [email or web address] [facility] 3 09:46:27 Hyperlipi demia 98465668 Active 2022 Rosalba Belle NP [address], [place], [address] , [employer] [facility] 3 07:49:48 Essential hypertens ion 03119280 Active 2022 Rosalba Belle NP [address], [place], [address] , [employer] [facility] 3 07:50:58 Polycysti c ovary syndrome 826133458 Active 2022 Rosalba Belle NP [address], [place], [address] , [employer] [facility] 3 09:09:39 Seasonal allergic rhinitis 147708575 Active 2022 Rosalba Belle NP [address], [place], [address] , [facility] 3 08:16:24 Pain of left knee joint 90305379073 4107 Active 2023 SARAHY Peguero [address] [facility] [place] [address], [place], [address] , [facility] [employer] [facility] 4 16:00:57 Strain of adductor muscle of thigh 852702911 Active 2023 SARAHY Peguero [address] [facility], [place] [address], [place], [address] , [facility] [email or web address] [facility] [employer] 4 15:43:27 Problem Notes None recorded. Procedures Surgical History Date Name Laterality Status Provider Name and Address Organization Details Recorded Time 03/03/20 24 Transitional_Ca re_Management completed SARAHY Peguero [address] [facility] [place] [address], [place], [address], [facility] [employer] [facility] 03/03/2024 15:58:43 04/17/20 23 Most Recent Mammogram completed Rosalba Brandt RN [facility] [employer] [facility] 04/18/2023 09:36:28 06/30/19 02 Gallbladder Surgery completed Not Available [facility] 08/28/2022 07:26:44 Imaging Results Imaging Date Name Status LastModified by Organiz ation Details LastModified Time 12/18/2022 XR, abdomen, 1 view completed [facility] (Imaging) [address] [place], [address], 12/18/2022 15:33:37 04/04/2024 CT, abdomen + pelvis, w/ contrast completed [email or web address] [place] [address], [address], 04/05/2024 08:42:49 05/07/2024 CT, abdomen + pelvis, w/ contrast completed [address] [place] [address], [address], 05/10/2024 16:35:41 Procedure Notes None recorded. Medical Equipment None Reported. Allergies No known drug allergies Medications Name Sig Start Date Stop Date Status Note LastModified by Organization Details LastModified Time Prescript ion - Prior Authoriza tion Request active Not Available Not Available Not Available cyclobenz aprine 10 mg tablet Take 1 tablet 3 times a day by oral route as needed. active Not Available Not Available No t Available metformin 500 mg tablet active Not Available Not Available Not Available azithromy johnny 250 mg tablet ZPK 12/18 completed Not Available Not Available Not Available Lidocaine Viscous 2 % mucosal solution 02/26 completed Not Available Not Available Not Available benzonata te 200 mg capsule Take 1 capsule every 8 hours by oral route as needed for 7 days. active Not Available Not Available No t Available glyburide 2.5 mg tablet TK 1 T PO QD 12/10 completed PCOS Not Available Not Available Not Available hydrocodo ne 5 mg-acetam inophen 325 mg tablet TAKE 1 TABLET BY MOUTH EVERY 8 HOURS NEEDED FOR PAIN active Not Available Not Available No t Available meloxicam 15 mg tablet TAKE 1 TABLET BY MOUTH EVERY DAY NEEDED active Not Available Not Available No t Available lisinopri l 20 mg tablet TAKE 1 TABLET BY MOUTH EVERY DAY DIRECTED active Not Available Not Available No t Available phentermi ne 15 mg capsule Take 1 capsule every day by oral route. active Not Available Not Available No t Available Zyrtec 10 mg tablet Take 1 tablet twice a day by oral route. 10/26 completed Not Available Not Available Not Available metronida zole 500 mg tablet TAKE 1 TABLET BY MOUTH EVERY 12 HOURS active Not Available Not Available No t Available phentermi ne 37.5 mg tablet Take 1 tablet every day by oral route. 02/20 completed Not Available Not Available Not Available allopurin ol 100 mg tablet Take 1 tablet every day by oral route for 30 days. active Not Available Not Available No t Available ciproflox acin 500 mg tablet TAKE 1 TABLET BY MOUTH EVERY 12 HOURS active Not Available Not Available No t Available triamcino lone acetonide 0.1 % topical cream APPLY A THIN LAYER TO THE AFFECTED AREA(S) BY TOPICAL ROUTE 2 TIMES PER DAY active Not Available Not Available No t Available Kenalog 40 mg/mL suspensio n for injection Take 1 mL every day by injectio n route for 1 day. 12/10 completed Not Available Not Available Not Available oxycodone -acetamin ophen 5 mg-325 mg tablet active Not Available Not Available Not Available tamsulosi n 0.4 mg capsule TAKE 1 CAPSULE BY MOUTH DAILY 12/18 completed Not Available Not Available Not Available benzonata te 100 mg capsule TK 1 C PO TID FOR 7 DAYS PRN 02/26 completed Not Available Not Available Not Available hydrocodo ne 7.5 mg-acetam inophen 325 mg tablet TAKE 1 TABLET BY MOUTH EVERY 8 HOURS FOR 4 DAYS NEEDED FOR SEVERE PAIN active Not Available Not Available No t Available cyanocoba yancy (vit B-12) 1,000 mcg/mL injection solution INJECT 1 CC WEEKLY X 1 MONTH THEN Q 2 WEEKS X 2 DOSES THEN MONTHLY 03/12 completed Not Available Not Available Not Available metformin 1,000 mg tablet 09/16 completed Not Available Not Available Not Available Polytrim 10,000 unit-1 mg/mL eye drops Instill 1 drop every 4 hours by ophthalm ic route for 7 days. 05/13 completed Not Available Not Available Not Available monteluka st 10 mg tablet TAKE 1 TABLET BY MOUTH DAILY active Not Available Not Available No t Available hydroxyzi ne HCl 25 mg tablet TK 1 T PO TID active itching of skin Not Available Not Available Not Available ergocalci ferol (vitamin D2) 1,250 mcg (50,000 unit) capsule Take 1 capsule every week by oral route for 12 days. active vit d 5000 IU po daily otc now. Not Available Not Available Not Available epinephri ne 0.3 mg/0.3 mL injection , auto-inje ctor INJECT 1 PEN IN THE MUSCLE ONE TIME DIRECTED active Not Available Not Available No t Available Pepcid 20 mg tablet Take 1 tablet twice a day by oral route. active Not Available Not Available No t Available levofloxa johnny 500 mg tablet active Not Available Not Available No t Available methylpre dnisolone 4 mg tablets in a dose pack FOLLOW PACKAGE DIRECTIO NS 04/19 completed Not Available Not Available Not Available lisinopri l 40 mg tablet TAKE 1 TABLET BY MOUTH EVERY DAY DIRECTED 2024 active Not Available Not Available Not Avai lable ondansetr on 4 mg disintegr ating tablet DISSOLVE 1 TABLET ON THE TONGUE EVERY 8 HOURS NEEDED FOR NAUSEA OR VOMITING active Not Available Not Available No t Available fluticaso ne propionat e 50 mcg/actua tion nasal spray,carl pension SHAKE LIQUID AND USE 1 SPRAY IN EACH NOSTRIL EVERY DAY active Not Available Not Available No t Available metformin ER 500 mg tablet,ex tended release 24 hr Take 2 tablets by oral route for 90 days. 09/16 completed Not Available Not Available Not Available naproxen 500 mg tablet active Not Available Not Available Not Available metoclopr amide 10 mg tablet TAKE 1 TABLET BY MOUTH EVERY 6 HOURS NEEDED FOR NAUSEA OR VOMITING active Not Available Not Available No t Available amoxicill in 875 mg-potass ium clavulana te 125 mg tablet TAKE 1 TABLET BY MOUTH EVERY 8 HOURS FOR 10 DAYS active Not Available Not Available No t Available amoxicill in 500 mg-potass ium clavulana te 125 mg tablet TK 1 T PO Q 12 H FOR 10 DAYS 10/07 completed Not Available Not Available Not Available Adult Low Dose Aspirin 81 mg tablet,de layed release Take 1 tablet every day by oral route. 04/19 completed Not Available Not Available Not Available Junel FE 1.11/26 (28) 1.5 mg-30 mcg (21)/75 mg (7) tablet TAKE 1 TABLET BY MOUTH EVERY DAY 03/03 completed Not Available Not Available Not Available Sadaf active Not Available Not Avail able Not Available Xolair 1 injectio n per month by allergis t active Not Available Not Available No t Available metformin ER 1,000 mg 24 hr tablet,ex tended release (gastric reten.) Take 1 tablet twice a day by oral route. 09/[address] Dina pearson Not Available Not Available Not Available Xifaxan 550 mg tablet active Not Available Not Available Not Available Generess Fe 0.8 mg-25 mcg (24)/75 mg (4) chewable tablet active Not Available Not Available Not Available Fluvirin (PF) 45 mcg (15 mcg x 3)/0.5 mL IM syringe ADM 0.5ML IM UTD 09/26 completed Not Available Not Available Not Available Fluvirin (PF) 45 mcg (15 mcg x 3)/0.5 mL intramusc ular syringe active Not Available Not Available Not Available Fluvirin (PF) 45 mcg(15 mcg x3)/0.5 mL intramusc ular syringe active Not Available Not Available Not Available Fluarix Quad (PF) 60 mcg (15 mcg x 4)/0.5 mL IM syringe ADM 0.5ML IM UTD active Not Available Not Available No t Available Flucelvax Quad (PF) 60 mcg (15 mcg x 4)/0.5 mL IM syringe ADM 0.5ML IM UTD active Not Available Not Available No t Available Yen 1.5 mg-30 mcg tablet TAKE 1 TABLET BY MOUTH DAILY active Not Available Not Available No t Available Wegovy 1 mg/0.5 mL subcutane ous pen injector Inject by subcutan eous route for 28 days. 2023 active Not Available Not Available Not Avai lable Wegovy 0.25 mg/0.5 mL subcutane ous pen injector ADMINIST ER 0.25 MG UNDER THE SKIN EVERY WEEK DIRECTED 03/03 completed Not Available Not Available Not Available Wegovy 0.5 mg/0.5 mL subcutane ous pen injector ADMINIST ER 0.5 MG UNDER THE SKIN EVERY WEEK active Not Available Not Available No t Available Zepbound 2.5 mg/0.5 mL subcutane ous pen injector Inject by subcutan eous route for 28 days. 03/03 completed Not Available Not Available Not Available Vitals Date Recorded Body height Body mass index (BMI) Body weight Body temperature Heart rate Respiratory rate Oxygen saturation Oxygen saturation in Arterial blood by Pulse oximetry Pain severity - 0-10 verbal numeric rating [Score] - Reported Systolic blood pressure Diastolic blood pressure Provider Name and Address Organization Details Last Updated DateTime 3 170.18 cm 38.9 kg/m2 547805. 36 g 96.5 [degF] 88 /min 20 /min 98 % 98 % 0 150 mm[Hg] 102 mm[Hg] Rosalba Brandt RN [facility] [employer] 3 09:01:49 Date Recorded Systolic blood pressure Diastolic blood pressure Provider Name and Address Organization Details Last Updated DateTime 12/18/2022 142 mm[Hg] 102 mm[Hg] Rosalba Belle NP [address] [facility] [facility] [address], [place], [address], [place] [facility] [employer] [facility] 12/18/2022 09:59:30 Date Recorded Body height Body mass index (BMI) Body weight Body temperature Heart rate Respiratory rate Oxygen saturation Oxygen saturation in Arterial blood by Pulse oximetry Pain severity - 0-10 verbal numeric rating [Score] - Reported Systolic blood pressure Diastolic blood pressure Provider Name and Address Organization Details Last Updated DateTime 3 170.18 cm 38.9 kg/m2 601460. 26 g 97.2 [degF] 87 /min 16 /min 96 % 96 % 0 122 mm[Hg] 78 mm[Hg] Rosalba Brandt RN [facility] [employer] [facility] 3 08:59:13 Date Recorded Body height Body mass index (BMI) Body weight Body temperature Heart rate Respiratory rate Oxygen saturation Oxygen saturation in Arterial blood by Pulse oximetry Pain severity - 0-10 verbal numeric rating [Score] - Reported Systolic blood pressure Diastolic blood pressure Provider Name and Address Organization Details Last Updated DateTime 3 170.18 cm 39.6 kg/m2 841850. 87 g 96.7 [degF] 92 /min 16 /min 97 % 97 % 0 142 mm[Hg] 98 mm[Hg] Rosalba Brandt RN [facility] [employer] [facility] 3 09:34:25 Date Recorded Body height Body mass index (BMI) Body weight Body temperature Heart rate Respiratory rate Oxygen saturation Oxygen saturation in Arterial blood by Pulse oximetry Pain severity - 0-10 verbal numeric rating [Score] - Reported Systolic blood pressure Diastolic blood pressure Provider Name and Address Organization Details Last Updated DateTime 4 170.18 cm 40.3 kg/m2 225605. 04 g 96.9 [degF] 102 /min 20 /min 97 % 97 % 1 158 mm[Hg] 90 mm[Hg] Rosalba Brandt RN [facility] [employer] [facility] 4 15:35:55 Date Recorded Body height Body mass index (BMI) Body weight Body temperature Heart rate Respiratory rate Oxygen saturation Oxygen saturation in Arterial blood by Pulse oximetry Pain severity - 0-10 verbal numeric rating [Score] - Reported Systolic blood pressure Diastolic blood pressure Provider Name and Address Organization Details Last Updated DateTime 4 170.18 cm 37.7 kg/m2 687263. 97 g 98.4 [degF] 103 /min 24 /min 97 % 97 % 1 160 mm[Hg] 98 mm[Hg] Rosalba Brandt RN [place] - [facility] 4 15:25:12 Social History Question Answer Notes LastModified by Organizat ion Details LastModified Time Tobacco Smoking Status Never Smoker Not Available [employer] 08/28/2022 07:26:32 Do You Have An Advance Directive? No Information not available 12/18/2022 What Is Your Level Of Alcohol Consumption? Occasional [id number] Information not available 08/28/2022 If You Are , What Was Your Level Of Alcohol Consumption Prior To ? Occasional MIGRATION.[id number] [id number] Information not available 08/28/2022 Is Blood Transfusion Acceptable In An Emergency? Yes Information not available 12/18/2022 What Is Your Level Of Caffeine Consumption? Moderate Coffee, Tea Information not available 04/18/2023 What Is Your Code Status? Full Code Information not available 12/18/2022 In The 14 Days Before Symptom Onset, Have You Had Close Contact With A Laboratory-confi rmed COVID-19 While That Case Was Ill? No MIGRATION.[id number] 12639 Information not available 08/28/2022 In The 14 Days Before Symptom Onset, Have You Had Close Contact With A Person Who Is Under Investigation For COVID-19 While That Person Was Ill? No MIGRATION.27075 23200 Information not available 08/28/2022 What Type Of Diet Are You Following? 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 5 Information not available 12/18/2022 On Those Days That You Engage In Moderate To Strenuous Exercise, How Many Minutes, On Average, Do You Exercise? 30 Information not available 04/18/2023 Have There Been Any Changes To Your Family Or Social Situation? No MIGRATION.88021 62248 Information not available 08/28/2022 What Is The Fluoride Status Of Your Home? Fluoridated MIGRATION.42181 29263 Information not available 08/28/2022 Do You Use Insect Repellent Routinely? Yes MIGRATION.64200 40920 Information not available 08/28/2022 Where Do You Live? [place]House MIGRATION.49312 57914 Information not available 08/28/2022 Do You Have A Medical Power Of Health Facilities Surveyor? No Information not available 12/18/2022 How Many Children Do You Have? 0 Information not available 03/03/2024 Do You Have Any Pets? Yes MIGRATION.56126 65164 Information not available 08/28/2022 What Is Your Relationship Status? MIGRATION.84919 93098 Information not available 08/28/2022 Do You Use Your Seat Belt Or Car Seat Routinely? Yes Information not available 12/18/2022 Do You Have Smoke And Carbon Monoxide Detectors In Your Home? Yes MIGRATION.57875 05605 Information not available 08/28/2022 Are You Passively Exposed To Smoke? No MIGRATION.03878 11783 Information not available 08/28/2022 Are There Any Smokers In Your House? No MIGRATION.32336 26918 Information not available 08/28/2022 Do You Participate In Social Media? Yes MIGRATION.90997 76380 Information not available 08/28/2022 What Types Of Sporting Activities Do You Participate In? Walk Information not available 12/18/2022 Do You Feel Stressed (tense, Restless, Nervous, Or Anxious, Or Unable To Sleep At Night)? [id number] Information not available 10/27/2023 Do You Use Any Illicit Or Recreational Drugs? No MIGRATION.51220 90070 Information not available 08/28/2022 Do You Use Sunscreen Routinely? Yes MIGRATION.28484 26070 Information not available 08/28/2022 Have You Recently Traveled Abroad? No Information not available 12/18/2022 Are You Currently In School? No MIGRATION.76821 55113 Information not available 08/28/2022 Sex: Female Functional Status Question Answer Note LastModified by Organizat ion Details LastModified Time What is your exercise level? Occasional Information not available 12/18/2022 Mental Status None recorded. Family History Relationship Description Onset Age of this Age Resolved Age Notes LastModified by Organization Details LastModified Time Mother Malignant tumor of breast [id number] Not available 08/28/2022 07:26:45 Notes:hyper and hypotension Medical History Condition Response BLINDNESS N RHEUMATIC FEVER N KIDNEY STONES N BLADDER PROBLEMS N MRSA N OTHER # 1 N POLIO N LUNG DISEASE/DISORDER N HISTORY OF DRUG ABUSE N RADIATION / CHEMOTHERAPY N COPD N Other # 2 N BLOOD DISEASES N SURGERY N EAR OR HEARING PROBLEMS N MUMPS N SHINGLES N FEMALE PROBLEMS / INFECTIONS N BOWEL PROBLEMS N DEPRESSION (INCLUDING POST ) Y STROKE/TIA N THYROID DISEASE N ULCERS N BENIGN PROSTATIC HYPERPLASIA N MEASLES N CERVICALGIA N TB SKIN TEST N HYPOTENSION N MYOCARDIAL INFARCTION N PARAPELGIA N OBESITY Y GERD/NAUSEA Y ANEURYSM N URINARY/BLADDER/KIDNEY PROBLEMS N CORONARY ARTERY DISEASE (CAD) N MENIERE'S DISEASE N Do you have Advance directive? N ADDICTION CONCERNS N ENDOMETRIOSIS N USE OF BLOOD THINNERS N SKIN PROBLEMS N EMPHYSEMA N GASTROINTESTINAL DISORDER N MUSCLE,JOINT OR BONE PROBLEMS N GASTROINTESTINAL BLEEDING N BLOOD CLOTS N ASTHMA N CATARACTS N ERECTILE DYSFUNCTION N GI PROBLEMS N CHF N Low Testosterone N NEUROPATHY N INFERTILITY N AIDS/HIV N FRACTURES N CHEMOTHERAPY / RADIATION N VISION/EYE PROBLEMS N LIVER DISEASE N MALE HYPOGONADISM N HYPERTENSION Y TOURETTE'S N ANXIETY DISORDER N BLOOD TRANSFUSION N ANEMIA/BLOOD DISORDER N CHRONIC EAR INFECTIONS N BRONCHITIS N TUBERCULOSIS N GLAUCOMA N FOOT PROBLEM N DIVERTICULITIS N SLEEP APNEA N CHICKENPOX N ALLERGIES/HAYFEVER Y INFECTIOUS DISEASE N PROSTATE N HEART ARRHYTHMIA N INSOMNIA N HIGH CHOLESTEROL / HYPERLIPIDEMIA N EYE PROBLEMS N HYPERTHYROIDISM N EATING DISORDER N EDEMA N CHRONIC PAIN SYNDROME N CONSTIPATION N CAROTID BLOCKAGE N BACK / NECK PROBLEMS N HAVE YOU BEEN HOSPITALIZED OR SEEN IN [facility] IN THE PAST YEAR ? Y ATHEROSCLEROSIS N BREAST PROBLEMS N DIALYSIS N ECZEMA N FIBROMYALGIA N OSTEOPOROSIS N ARTHRITIS N NO SIGNIFICANT PAST MEDICAL HISTORY N APPENDICITIS N DIABETES, TYPE N BAD TEETH N HEARTBURN / REFLUX Y ADD/ADHD N AUTISM SPECTRUM DISORDER (ASD) N HEPATITIS / LIVER DISEASE N PULMONARY DISEASE N GOUT N SLEEP DISORDER N ALZHEIMER'S DISEASE N PAIN N DEMENTIA N HERPES N SEIZURES/EPILEPSY N HEADACHES/MIGRAINES N VASCULAR DISEASE N PACEMAKER N DIZZINESS N HEART DISEASE/HEART PROBLEMS N KIDNEY DISEASE N SCARLET FEVER N MULTIPLE SCLEROSIS N MENTAL DISORDER/ILLNESS N DEVELOPMENTAL OR BEHAVIORAL DISORDERS N CANCER: SPECIFY N CARDIAC ARRHYTHMIA N PNEUMONIA Y ATRIAL FIBRILLATION N Gall Stones N PULMONARY EMBOLISM N AUTOIMMUNE DISEASE N Gynecological History Statement/Question Response Flow Light Date of LMP 02/24/2024 Duration of Flow (days) 4 Current Control Method BCPs Age at Menarche 14 Most Recent Mammogram 04/17/2023 Date of Last Mammogram 04/24/2021 Date of Last Colonoscopy Frequency of Cycle (Q days) 28 Most Recent Bone Density Menses Monthly Y Date of Last Pap Smear Obstetrics History GPAL:G 1 P 1 0 0 0 Type Value Full Term 1 Total 1 Immunizations Vaccine Type Date Status Note Provider Nam e and Address Organization Details Recorded Time Influenza, split virus, quadrivalent, PF 3 completed Rosalba Brandt RN [facility], [facility] [employer] 04/18/2023 11:21:41 Influenza, split virus, trivalent, preservative 5 completed Not Available [facility] 08/28/2022 07:34:51 Influenza, split virus, quadrivalent, preservative 9 completed Not Available [facility] 08/28/2022 07:34:51 Influenza, split virus, quadrivalent, preservative 8 completed Not Available [facility] 08/28/2022 07:34:51 Influenza, split virus, quadrivalent, preservative 7 completed Not Available [facility] 08/28/2022 07:34:51 Influenza, split virus, trivalent, preservative 6 completed Not Available [facility] 08/28/2022 07:34:51 Tdap 7 completed Not Available [facility] 08/28/2022 07:34:51 Past Encounters Encounter ID Performer Location Encounter Start Date Encounter Closed Date Diagnosis/Indication Diagnosis SNOMED-CT Code Diagnosis ICD10 Code Diagnosis Note [id number] [facility] [address] [place] [address] 1 11/14/2021 00:00:00 11/14/2021 10:35:00 [id number] [facility] [address] [place] [address]-293 1 04/19/2022 00:00:00 04/19/2022 15:24:46 [id number] _ELLIS_M IGRATION_ DEFAULT_1 _1 , 06/03/2022 00:00:00 06/03/2022 15:35:29 [id number] [facility] [place] [place] [facility] [address] [place] [address] 07/08/2022 00:00:00 07/08/2022 12:08:10 [id number] [facility] [address] [place] [address] 08/05/2022 00:00:00 08/05/2022 15:32:02 [id number] [facility] [address] [place] [address] 09/09/2022 14:04:36 09/09/2022 14:47:25 Plantar fasciitis of right foot 0312342515 5964711 M72.2 90% improvedEd ucated on shoe gear, orthotics, physical therapyCon tinued at-home physical therapyrec ommend night splintReco mmend physical therapy -- does not want to go due to scheduledf ollow-up as needed [id number] Rosalba Belle NP [address] [address] 12/18/2022 08:45:45 12/18/2022 09:59:59 Adult health examination 436107997 Z00.00 Encouraged well balanced meals, active lifestyle, and routine vision and dental appts. Obese 559939430 E66.9 Continue brisk walking 4 days weekly for 45 min continuous . Reduce carbs and sugar. Discussed in depth to dring 64 ounces water, minimum. Avoid large meals. Anemia screening 0078727 07 Z13.0 Diabetes m ellitus screening 787141562 Z13.1 Thyroid di sorder screening 102048392 Z13.29 Hyperlipid emia screening 872087053 Z13.220 Family his tory of cancer of colon 823273221 Z80.0 Colonoscop y done 0710-0080. Family his tory of breast cancer 885772700 Z80.3 Seeing [employer]. Spasm of u rinary bladder 173909917 N32.89 urine dip + blood. KUB ordered. [id number] Rosalba Belle NP [address] [address] 01/17/2023 08:49:55 01/17/2023 09:31:31 Obese 612472290 E66.9 Continue brisk walking 4 days weekly for 45 min continuous . Reduce carbs and sugar. Discussed in depth to drink 64 ounces water, minimum. Avoid large meals. Hyperlipidemia 14029387 E78.5 Low fat diet. Stay active. Essential hypertension 89404160 I10 < 2 gm sodium diet.Weigh t management advised and encouraged .Avoid caffeine.I mproved with relaxation . Polycystic ovary syndrome 115057298 E28.2 Seeing [employer]. [id number] Rosalba Belle NP [address] [address] 04/18/2023 09:20:45 04/18/2023 10:19:34 Essential hypertension 29409237 I10 < 2 gm sodium diet.Weigh t management advised and encouraged .Avoid caffeine.I mproved with relaxation . Hyperlipidemia 84227253 E78.5 Low fat diet. Stay active. Obese 349611694 E66.9 Continue brisk walking 4 days weekly for 45 min continuous . Reduce carbs and sugar. Discussed in depth to drink 64 ounces water, minimum. Avoid large meals. Polycystic ovary syndrome 289977393 E28.2 Seeing [employer]. Seasonal a llergic rhinitis 607694512 J30.2 flonase, montelukas t Administra tion of influenza vaccine 98432225 Z23 flu shot [id number] SARAHY Peguero [address] [address] 10/27/2023 15:13:58 10/27/2023 16:06:59 Essential hypertension 09603403 I10 Obesity 044588232 E66.9 Pain of le ft knee joint 8472979929 90681 M25.013 [id number] SARAHY Peguero [address] [address] 03/03/2024 15:16:07 03/03/2024 16:09:34 Transition of care 5762248474 105 Z75.8 Patient scheduled to see GI Essential hypertension 50302046 I10 Will take 2 20 mg lisinopril until she runs out to trail 40 mg Strain of adductor muscle of thigh 314378471 S76.211D Health Concerns Section Related Observation LastModified by Organization Detai ls LastModified Time None Recorded Concern Status LastModified by Organization Details LastModified Time None Recorded Advance Directives Directive N: Payers Encounter Date Sequence Insurance Name Policy Number Policy Meléndez Covered Member ID Meléndez Member ID Guarantor Name 12/18/2022 1 [place]) 113 Melissa Eil [id number] Melissa Eli 01/17/2023 1 [place] 113 Melissa Eli [id number] Melissa Eli 04/18/2023 1 [place] 113 Melissa Eli [id number] Melissa Eli 10/27/2023 1 [place] 113 Melissa Eli [id number] Melissa Eli 03/03/2024 1 [place] 113 Melissa Eli [id number] Melissa Eli Notes Date Note Type Note Provider Name and Address Organization Details Recorded Time 12/18/2022 text/html Here for stephy lynn Vit d def- Taking vit d supplementAllergie s- using wallitin otc nightly. Gets itchy. Welts up after scratching.Contrac eption- ultrasound specialist. Had er visit in august for kidney stone. Said it was far up. Unsure if she passed it. Having pain and bladder spasms on Friday and occasional last night. No sure if another stone. Doesn't see urology. Has no blood in urine. Rosalba Belle, JANINE [address] [facility] [facility] [address], [place], [address], [facility] [employer] 12/18/2022 09:59:50 01/17/2023 text/html Here for 1 mo fu on raised BP. Did get labs and found high lipid. Diet and lifestyle mods recommended. Elevated BP- Improved today. Just back from vacation.Obese- Same as 1 mo ago. Has appt set up with long lines operator in [place], [place] for January.Mammogram ordered prev, scheduled for Feb 2023.WWE with Dina due for April 04, 2023. Rosalba Belle NP [address] [facility], [place], [address], [facility] [employer] [facility] 01/17/2023 09:29:56 04/18/2023 text/html Here for 6 mo fu . Hyperlipidemia- Trying to improve diet.HTN- Stable.Obese- increased a bit.allergies- stable. Flonase prn.Has been diagnosed with Demographic urticaria. Started on flonase, zyrtec bid, pepcid bid, montelukast. Vision- utdDental-utd Mammogram done 04/17/23.WWE rescheduled April. Rosalba Belle NP [address] [facility], [place], [address], [facility] [employer] [facility] 04/18/2023 09:59:26 10/27/2023 text/html Melissa Eli i s a 43 year old female patient here to transition care. She was previously under the care of Rosalba Belle DNP. Her past medical history is significant for seasonal allergies. She is seeing an long lines operator. She is currently taking Sadaf, flonase, montelukast 10 mg, and Xolair IM injection. She has a history of acid reflux. She takes Pepcid 20 mg PO BID. She has a history of vitamin D deficiency. She is taking vit D 50,000 u q weekly. She has concerns today with her blood pressure. Her BP on arrival today is 158/90. She admits to facial flushing, spacing out, overall malaise, blurred vision. Her BP has been averaging 180s/100s. She has pain in the left knee. She states that she feels her knee cracking with each step. She is not interested in x-rays or PT at this time. Flu shot: OVID vaccines: 2020, 2020Tdap: 01/2017Mammogram: 03/2021, required biopsy. Repeated with Dr. Arroyo in 04/17/2023, clearWWE: 04/04/2023 SARAHY Peguero [address], [place], [address], [facility] [email or web address] [facility] [employer] [facility] 10/27/2023 16:06:32 03/03/2024 text/html Melissa Eli i s a 44 year old female patient here today for an hospital FU. She went to the ER on 02/27 with nausea and left sided pain. Was admitted for SB infection and inflammation. Had a bowel study due to lack of bowel movement.Has a FU colonoscopy in 10-03, awaiting insurance pre-auth. Will be done with [facility]. After discharge has been sluggish, fatigued, and had mild discomfort. Able to eat and keep food down, is having bowel movement. We started lisinopril in September, since her BP has still been high. Will increase lisinopril to 40 mg PO daily SARAHY Peguero [address], [place], [address], [employer] 03/03/2024 15:59:23 OBGyn Episode No OBEpisode recorded.
--- OUTSIDE RECORDS SUMMARY | 2024-08-11 11:23 | XMS_ITS | Referral Summary ---
Author Organization [facility] Address [address] [facility] [place] [address] Care Team Providers Care Hand Picker Name Role Phone Unavailable Primary Care Provider [...]
--- OUTSIDE RECORDS SUMMARY | 2024-08-11 11:23 | XMS_ITS ---
Author Organization [facility] Address [address] [place] [address] Care Team Providers Care Innovation Analyst Name Role Phone Anish Webster Primary Care Provider Kaleb Iverson [phone] REASON FOR VISIT Refills Medications Medication SIG (Take, Route, Frequency, Duration) Notes Start Date End Date Status Montelukast Sodium 10 MG TAKE 1 TABLET B Y MOUTH DAILY Orally Once a day for 30 days Active Encounters Encounter Location Date Provider Diagnosis [facility] [address] [place] [address] 07/15/2024 Kaleb Garcia Other urticaria L50.8 Assessments Encounter Date Diagnosis (ICD Code) Assessment Notes Treatment Notes Treatment Clinical Notes Section Notes 07/15/2024 Other urticaria (ICD-10 - L50.8) Plan Of Treatment Medication Medication Name Sig Start Date Stop Date Notes Montelukast Sodium 10 MG TAKE 1 TABLET B Y MOUTH DAILY Orally Once a day for 30 days Next Appt Details Provider Name:Mario Alberto PriscaAlice Torres , 08/12/2024 08:00:00 AM, [address], [place], [address], Progress Notes * Melissa ELIDOB: 0 (44 yo F)Acc No.[id number]:07/15/2024 Patient: Madhu EVANSMelissa FRIED :1980 A ge:44 Y S ex:Female Address:[address] [place] [address] * Refills Refill Montelukast Sodium Tablet, 10 MG, Orally, 30, TAKE 1 TABLET BY MOUTH DAILY, Once a day, 30 days, Refills=2 * true * Date: Generated for Hernando duran/Brayan/Mitzy on: 0 08/11/2024 11:22 AM QUOTE CLERK
--- OUTSIDE RECORDS SUMMARY | 2024-08-11 11:23 | XMS_ITS | Clinical Summary ---
Author Organization [facility] Address [address] [facility] [place] [address] Care Team Providers Care Laborer Cement Gun Placing Name Role Phone Unavailable Primary Care Provider [...]
--- OUTSIDE RECORDS SUMMARY | 2024-08-11 11:23 | XMS_ITS ---
Author Organization [facility] Address [address] [place] [address] Care Team Providers Care Licensed Massage Practitioner Name Role Phone Anish Webster Primary Care Provider Kaleb Iverson Unavailable [phone] Mario Alberto Torres Unavailable [phone] REASON FOR VISIT CIU follow-up, Xolair administration scheduled today, Needs evaluation for pre- Xolair health questionaire to assess health status and medication review Medications Medication SIG (Take, Route, Frequency, Duration) Notes Start Date End Date Status FLUTICASONE NASAL 50 mcg/inh 2 spray(s) in each nostril BID for 30 day(s) Not-Taking CETIRIZINE 10 mg 1 tab(s) orally twic e a day for 30 days Not-Taking LISINOPRIL 20 mg 1 tab(s) orally once a day Not-Taking VITAMIN D3 10 mcg 1 tab(s) orally once a day for 30 day(s) patient takes 4000mcg daily Not-Taking MONTELUKAST 10 mg 1 tab(s) orally once a day for 30 day(s) Not-Taking EpiPen 2-Raphael 0.3 mg as directed intramuscularly once for 30 days Active Augmentin 500-125 MG 1 tablet Orally every 12 hrs Active VITAMIN D3 10 mcg 1 tab(s) orally once a day for 30 day(s) patient takes 4000mcg daily Not-Taking MONTELUKAST 10 mg 1 tab(s) orally once a day for 30 day(s) Not-Taking XOLAIR 150 mg as directed 300 mg subcutaneously every 4 weeks for 28 days Active FLUTICASONE NASAL 50 mcg/inh 2 spray(s) in each nostril twice a day for 30 days Active Pepcid 20 mg 1 tab(s) orally 2 times a day for 30 days Active Auvi-Q 0.3 MG/0.3ML as directed intramuscularly once for 30 days 10/20/2023 Not-Taking MONTELUKAST 10 mg 1 tab(s) orally once a day for 30 days Active FEXOFENADINE 180 mg 1 tab(s) orally twice a day for 30 days Active Lisinopril 20 MG 1 tab(s) orally once a day Active Vitamin B-12 100 MCG 1 tab(s) orally once a day for 30 day(s) Active Microgestin 1.5/30 1.5-30 MG-MCG 1 tab(s) orally once a day for 28 day(s) Active Montelukast Sodium 10 MG TAKE 1 TABLET BY MOUTH DAILY for 30 Active Cetirizine HCl 10 MG 1 tab(s) orally twice a day for 30 days Not-Taking Fluticasone Propionate 50 MCG/ACT 2 spray(s) in each nostril BID for 30 day(s) Active Fexofenadine HCl 180 MG 1 tab(s) orally twice a day for 30 days Active Xolair 150 MG as directed 300 mg subcutaneously every 4 weeks for 28 days Active Wegovy 0.5 MG/0.5ML 0.5 mL Subcutaneous Active Vitamin D3 10 MCG 1 TAB(S) ORALLY ONCE A DAY for 30 DAY(S) patient takes 4000mcg daily *Please review and pick correct strength-formula tion from LiveOnDemandspan options. If intended option is not shown, discontinue and re-order from Quick Search* Active FEXOFENADINE 180 mg 1 tab(s) orally twice a day for 30 days Not-Taking VITAMIN B-12 100 mcg 1 tab(s) orally once a day for 30 day(s) Not-Taking MICROGESTIN 1.5/30 30 mcg-1.5 mg 1 tab(s) orally once a day for 28 day(s) Not-Taking AUVI -Q 0.3 mg as directed intramuscularly once for 30 days 10/20/2023 Not-Taking EPIPEN 2-RAPHAEL 0.3 mg as directed intramuscularly once for 30 days 10/20/2023 Not-Taking CETIRIZINE 10 mg 1 tab(s) orally twic e a day for 30 days Not-Taking PEPCID 20 mg 1 tab(s) orally 2 times a day for 30 days Not-Taking MONTELUKAST 10 mg 1 tab(s) orally once a day for 30 days Not-Taking Vital Signs Blood pressure systolic 122 mm Hg 06/17/20 24 Blood pressure diastolic 70 mm Hg 024 Height 66 in 06/17/2024 Oximetry 98 % 06/17/2024 Encounters Encounter Location Date Provider Diagnosis [facility] [address] [place] [address] 06/17/2024 Mario Alberto Torres Other Urticaria L50. 8 Assessments Encounter Date Diagnosis (ICD Code) Assessment Notes Treatment Notes Treatment Clinical Notes Section Notes 06/17/2024 Other Urticaria (ICD-10 - L50.8) 06/17/2024 Other Plan Of Treatment Next Appt Details Follow Up: As scheduled for Xolair, Reason: Provider Name:Mario Alberto Torres , 08/12/2024 08:00:00 AM, [address], [address], [place], [address], Procedure Notes * Category Sub-Category Detail Notes XOLAIR (omalizumab) Administration Dosing Time / Vitals Swati Lauren 08:23:17 AM PASSENGER FLAGMAN >, Time of administration, See initial vitals Dosage 300 mg (60 units) Location CORAZON, KEVIN Reaction None Frequency q 4 weeks AIE (epinephrine) on patient? yes Lot Number / Expiration Lot Number(s): [id number] , Expiration Date: 04/2025 Post-procedural check-out: Tracy Laruen 06/17/2024 08:59:39 AM PASSENGER FLAGMAN >, Vital signs taken 30 minutes after dosing administration: BP: 120/85 HR: 81 SPO2: 98 Medication Source XOLAIR Source: Buy and Bill Medical necessity for in-off ice administration: The patient or caregiver is not suitable , not competent or is physically unable to administer the XOLAIR product FDA-labeled for self-administration for the following reason(s):: Inability to self-administer the medication; AND lack of caregiver or support system for assistance with administration of self-administered products. Progress Notes * Melissa ELIDOB: 0 (44 yo F)Acc No.[id number]:06/17/2024 Xolair Only Patient: Melissa RUBY Provider: Dany Torres MD :1980 A ge:44 Y S ex:Female Date:06/17/2024 Address:[address] [place], [place] [id number] Pcp:Anish Webster Subjective: * Chief Complaints: * [...] Hospitalization/Major Diagno stic Procedure: * Medications: T akingFLUTICASONE NASAL 50 mcg/inh spray 2 spray(s) in each nostril twice a day Pepcid 20 mg tablet 1 tab(s) orally 2 times a day MONTELUKAST 10 mg tablet 1 tab(s) orally once a day FEXOFENADINE 180 mg tablet 1 tab(s) orally twice a day XOLAIR 150 mg powder for injection as directed 300 mg subcutaneously every 4 weeks EpiPen 2- Raphael 0.3 mg kit as directed intramuscularly once Augmentin 500-125 MG Tablet 1 tablet Orally every 12 hrs Pepcid 20 mg tablet 1 tab(s) orally 2 times a day EpiPen 2-Raphael 0.3 mg kit as directed intramuscularly once Wegovy 0.5 MG/0.5ML Solution Auto-injector 0.5 mL Subcutaneous Vitamin D3 10 MCG TABLET 1 TAB(S) ORALLY ONCE A DAY , Notes to Pharmacist: patient takes 4000mcg daily *Please review and pick correct strength-formulation from LiveOnDemandspan options. If intended option is not shown, [...] TAKE 1 TABLET BY MOUTH DAILY Taking FLUTICASONE NASAL 50 mcg/inh spray 2 [...] mg subcutaneously every 4 weeks Taking EpiPen 2-Raphael 0.3 mg kit as directed intramuscularly once Taking Augmentin 500-125 MG Tablet 1 tablet Orally every 12 hrs Taking Pepcid 20 mg tablet 1 tab(s) orally 2 times a day Taking EpiPen 2-Raphael 0.3 mg kit as directed intramuscularly once Taking Wegovy 0.5 MG/0.5ML Solution Auto-injector 0.5 mL Subcutaneous Taking Vitamin D3 10 MCG TABLET 1 TAB(S) ORALLY ONCE A DAY , Notes to Pharmacist: patient takes 4000mcg daily *Please review and pick correct strength-formulation from SourceLair options. If intended option is not shown, [...] mg kit as directed intramuscularly once EPIPEN 2-RAPHAEL 0.3 mg kit as directed intramuscularly once [...] as directed intramuscularly once Not- Taking/PRN EPIPEN 2-RAPHAEL 0.3 mg kit as directed intramuscularly once Not-Taking/PRN Cetirizine HCl 10 MG Tablet 1 tab(s) orally twice a day Not-Taking/PRN Auvi-Q 0.3 MG/0.3ML Solution Auto-injector as directed intramuscularly once Objective: * Vitals: B P:122/70mm Hg, HR:90/min, Pulse Oximetry:98%, CU-Q2oL: 23, UAS7: 0, Ht: 66 in. Assessment: * Assessment: 1. O ther Urticaria - L50.8 (Primary) Plan: * Treatment: * Procedures: X OLAIR (omalizumab) Administration: Dosing Time / Vitals Swati Tatum 06/17/2024 08:23:17 AM PASSENGER FLAGMAN >, Time of administration, See initial vitals. Dosage 3 00 mg (60 units). Location L UA, KEVIN. Reaction N one. Frequency q 4 weeks. AIE (epinephrine) on patient? y es. Lot Number / Expiration L ot Number(s): [id number] , Expiration Date: 04/2025. Post-procedural check-out: Swati Tatum 06/17/2024 08:59:39 AM PASSENGER FLAGMAN >, Vital signs taken 30 minutes after dosing administration: BP: 1 20/85 HR: 81 S PO2: 98. Medication Source X OLAIR Source B uy and Bill Medical necessity for in-correction officer head: T he patient or caregiver is not suitable, not competent or is physically unable to administer the XOLAIR product FDA-labeled for self-administration for the following reason(s): I nability to self-administer the medication; AND lack of caregiver or support system for assistance with administration of self-administered products. * Procedure Codes: 9 6401 CHEMO, ANTI-NEOPL, SQ/IM, Units: 2.00 , Modifiers: 76 51762 PT-FOCUSED [facility] RISK [id number] NOC Xolair 150 mg PFS, Units: 60.00 , Modifiers: JZ * Preventive Medicine: R eviewed boxed warning on prescribed medication: Xolair: anaphylaxis, CV disease, malignancy. After discussing risks/benefits/alternatives, patient has agreed to start/continue Xolair therapy. No new symptoms of cardiac disease, malignancy and no symptoms of anaphylaxis. * Follow Up: A s scheduled for Xolair * Billing Information: * Visit Code: * Procedure Codes: 68069 CHEMO, ANTI-NEOPL, SQ/IM. Units: 2.00. Modifiers: 76 75740 PT-FOCUSED [facility] RISK ASSMT. J2357 NOC Xolair 150 mg PFS. Units: 60.00. Modifiers: JZ * ENGER FLAGMAN Electronically co-signed by Mario Alberto Torres MD, FAAAAI on 07/05/2024 at 07:47 PM PASSENGER FLAGMAN Sign off status: Completed true * Provider: Dany Torres MD Date: 1 08/18/2023 Generated for Juliai roger/Brayan/eTransmitting on: 0 08/11/2024 11:23 AM PASSENGER FLAGMAN History and Physical Notes * HPI (History [...]
--- OUTSIDE RECORDS SUMMARY | 2024-08-11 11:23 | XMS_ITS | CONTINUITY OF CARE DOCUMENT ---
Author Name mike mckeon Address Unknown Organization [facility] Address [address] [place] [address] [address] [place] [address] Phone [phone] Care Team Providers Care Sharepoint Application Developer Name Role Phone Glenn Moses MD Unavailable BIJAN ANTONY MD Unavailable BIJAN ANTONY MD Unavailable INSURANCE PROVIDERS Payer name Policy type / Coverage type [place] red constitution party ID [facility] [id number]
[2024-08-11] MEDS: MAG HYDROX/AL HYDROX/SIMETH 30 ML UDC PO (12:21)
[2024-08-11] MEDS: FAMOTIDINE 20 MG TABLET PO (12:21)
[2024-08-11] MEDS: ONDANSETRON HCL ODT 4 MG TABLET PO (12:21)
--- OUTSIDE RECORDS SUMMARY | 2024-08-11 12:29 | XMS_ITS | Referral Summary ---
Author Organization [facility] Address [address] [facility] [place] [address] Care Team Providers Care Unit Director Name Role Phone Unavailable Primary Care Provider [...]
--- OUTSIDE RECORDS SUMMARY | 2024-08-11 12:29 | XMS_ITS | CONTINUITY OF CARE DOCUMENT ---
Author Name mike mckeon Address Unknown Organization [facility] Address [address] [place] [address] [address] [place] [address] Phone [phone] Care Team Providers Care Pediatric Cns Name Role Phone Glenn Moses MD Unavailable BIJAN ANTONY MD Unavailable [phone] BIJAN ANTONY MD Unavailable INSURANCE PROVIDERS Payer name Policy type / Coverage type [place] red green party ID [facility] [id number]
--- OUTSIDE RECORDS SUMMARY | 2024-08-11 12:29 | XMS_ITS | Clinical Summary ---
Author Organization [facility] Address [address] [facility] [place] [address] Care Team Providers Care Veterans Employment Representative Name Role Phone Unavailable Primary Care Provider [...]
--- OUTSIDE RECORDS SUMMARY | 2024-08-11 12:29 | XMS_ITS | Encounter Summary ---
Author Organization [facility] Address [address] [place] [address] Care Team Providers Care Oil Refinery Operator Name Role Phone Unavailable Primary Care Provider Unavailabl e Prior Encounters Date Type Department Care Team Description 07/19/2019 Converted 13x Documents [facility] [address] [place] [address] <No scans attached> 07/19/2019 Converted 13x Documents [facility] [address] [place] [address] <No scans attached> Plan of Treatment Not on file Visit Diagnoses Not on file
--- OUTSIDE RECORDS SUMMARY | 2024-08-11 12:29 | XMS_ITS | CCD ---
Author Organization [facility] Address [address] [place] [address] Care Team Providers Care Special Service Representative Name Role Phone Unavailable Primary Care [...]
--- OUTSIDE RECORDS SUMMARY | 2024-08-11 12:29 | XMS_ITS ---
Author Organization [facility] Address [address] [place] [address] Care Team Providers Care Knife Glazer Name Role Phone Unavailable Unavailable Unavailable Surgery Details Not on file Complications Check Surgery Details section. Procedure Estimated Blood Loss Check Surgery Details section. Procedure Findings Check Surgery Details section. Procedure Specimens Taken Check Surgery Details section.
[2024-08-11] MEDS: KETOROLAC 15 MG/ML VIAL (*BKC) IV PUSH (13:16)
[2024-08-11] MEDS: PANTOPRAZOLE SODIUM IV 40 MG VIAL IV PUSH (13:16)
[2024-08-11 13:27] LABS: BEDSIDEPREGUCG Negative (Negative)
[2024-08-11 13:29] LABS: Basophils Percent Auto 0.3 % (0.2-1.2); Eosinophils Absolute Auto 0.3 K/mm3 (0-0.3); Hematocrit 42.3 % (37.0-47.0); Hemoglobin 13.9 g/dL (12.0-15.0); Immature Granulocyte Absolute 0.04 K/mm3 (0.00-0.031); Immature Granulocyte Percent A 0.4 % (0-0.5); Lymphocytes Absolute Auto 2.34 K/mm3 (0.9-3.2); Lymphocytes Percent Auto 23.5 % (18.3-44.2); Mean Corpuscular HGB Conc 32.9 g/dl (32-36); Mean Corpuscular Hemoglobin 31.3 pg (26-34); Mean Corpuscular Volume 95.3 fl (80-100); Mean Platelet Volume 10.8 fl (7.4-10.4); Monocytes Absolute Auto 0.6 K/mm3 (0.1-0.6); Monocytes Percent Auto 6.3 % (2.6-8.5); Neutrophils Absolute Auto 6.6 K/mm3 (1.3-6.7); Neutrophils Percent Auto 66.5 % (45.5-73.1); Platelet Count Result 246 k/mm3 (150-375); Red Blood Count 4.44 M/mm3 (4.2-5.4); Red Cell Distribution Width 12.1 % (11.5-14.5); White Blood Count 9.9 K/mm3 (4.5-10.0)
[2024-08-11 13:31] LABS: Add Urine Microscopic? NO; Appearance Urine Clear (Clear); Bilirubin Urine Negative (Negative); Blood Urine Negative (Negative); Color Urine Yellow (Yellow); Glucose Urine UA Negative (Negative); Ketones Urine Negative (Negative); Leukocyte Esterase Ur Negative LEU/UL (Negative); Nitrate Urine Negative (Negative); Protein Urine Negative (Negative); Urobilinogen Urine 0.2 mg/dL (<2.0)
[2024-08-11 13:40] LABS: Alanine Aminotransferase 11 U/L (6-35); Alkaline Phosphatase 69 U/L (38-126); Anion Gap 11 mmol/L (4-12); Aspartate Amino Transferase 16 U/L (14-36); Bilirubin,Total 0.5 mg/dL (0.2-1.3); Blood Urea Nitrogen 12 mg/dL (7-17); Carbon Dioxide 22 mmol/L (22-30); Chloride 106 mmol/L (98-107); Estimated CRCL calculation 101 ml/min; Estimated Glomerular Filt Rate > 60; Glucose 88 mg/dL (65-110); Lipase 166 U/L (23-300); Potassium 4.2 mmol/L (3.4-5.0); Sodium 139 mmol/L (137-145)
[2024-08-11 14:37] VITALS: BP 144/89; PULSE 74; RESP 16; TEMP 36.4; O2SAT 99
--- NOTE | 2024-08-11 17:21 | ED_ITS ---
HPI - Abdominal Pain General Chief Complaint: Abdominal Pain Stated Complaint: LUQ pain x 3 hours Time Seen by Provider: 08/11/24 12:05 History of Present Illness HPI narrative: Patient presents with left upper quadrant pain for last few hours, she has had this pain in the past, she is already on Pepcid and she usually takes it 5 times a day but cut down recently to 3. Also associated nausea vomiting Related Data Home Medications ?Medication ?Instructions ?Recorded ?Confirmed ?Last Taken ?Type cholecalciferol (vitamin D3) 25 25 mcg PO DAILY 04/30/21 06/03/24 03/21/24 History mcg (1,000 unit) capsule fexofenadine 60 mg tablet (Sadaf 20 mg PO BID 02/21/24 06/03/24 03/21/24 History Allergy) lisinopril 20 mg tablet 40 mg PO DAILY 02/21/24 06/03/24 03/21/24 History meloxicam 15 mg tablet 15 mg PO DAILY PRN Pain 02/21/24 06/03/24 03/21/24 History Sadaf See Rx Instructions .Route .COMPLEX 03/11/24 06/03/24 Unknown History Flonase 1 inh intranasal DAILY 03/11/24 06/03/24 03/21/24 History epinephrine 0.3 mg/0.3 mL 0.3 mg subcut DAILY PRN reaction 03/11/24 06/03/24 03/21/24 History injection, auto-injector norethindrone acetate 1.5 1 tablet PO DAILY 03/11/24 06/03/24 03/21/24 History mg-ethinyl estradiol 30 mcg tablet (Yen) famotidine 10 mg chewable tablet 10 mg PO DAILY 06/01/24 06/03/24 Unknown History omalizumab 75 mg/0.5 mL 75 mg subcut MONTHLY 06/01/24 06/03/24 Unknown History subcutaneous auto-injector (Xolair) Allergies Allergy/AdvReac Type Severity Reaction Status Date / Time morphine AdvReac Swelling Verified 08/11/24 10:32 of Lip/Tongue/Throat Review of Systems 2 Review of Systems: All systems reviewed & are unremarkable except as noted in HPI and below PMFSH Past Medical History Medical History GERD (gastroesophageal reflux disease) Hypertension Kidney stones Surgical History Surgical History History of cholecystectomy History of extraction of renal calculus Family History Family History Father Hypertension Mother Breast cancer Grandparent Breast cancer Diabetes mellitus Social History Social History Smoking status: Former smoker Tobacco type: cigarettes Alcohol intake: current Alcohol use details: socially Substance use: never Substance use type: does not use Do You Feel Safe in your Home?: Yes Lack of Transportation: No Lack of Food: Never True Current Housing: I Have Housing Concerned About Future Housing: No Difficulty Paying Gas/Electric Bills: No Difficulty Paying for Meds: No Currently Unemployed: No Education: Associate Degree Difficulty w/ Childcare or Family Care: No Living arrangements: with family Occupation/Education: occupation 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 EYES: EOMI, conjunctiva normal ENT: Hearing grossly intact LUNGS: Nonlabored breathing. HEART: [Regular rate and rhythm] ABD: [Soft], slight tenderness to left upper quadrant; no flank tenderness EXT: Normal range of motion SKIN: [No rashes or lesions.] NEURO: [Alert and oriented x 3. No gross focal sensory or strength deficits.] PSYCH: Normal affect Course Vital Signs Vital signs: Vital Signs Temperature 97.9 F 08/11/24 10:33 Pulse Rate 88 08/11/24 10:33 Respiratory Rate 18 08/11/24 10:33 Blood Pressure 163/111 H 08/11/24 10:33 Pulse Oximetry 99 08/11/24 10:33 Oxygen Delivery Room Air 08/11/24 10:33 Temperature 97.5 F L 08/11/24 14:37 Pulse Rate 74 08/11/24 14:37 Respiratory Rate 16 08/11/24 14:37 Blood Pressure 144/89 H 08/11/24 14:37 Pulse Oximetry 99 08/11/24 14:37 Oxygen Delivery Room Air 08/11/24 10:33 MDM - Abdominal Pain MDM Narrative Medical decision making narrative: Electronic medical record was reviewed. Patient presented to the ED with complaint of [abdominal pain and vomiting]. Vitals [were within acceptable limits]. Physical exam revealed soft abdomen with some slight tenderness to the left upper quad. Based on the patient's history and physical exam, my differential includes but is not limited to [gastritis, gastroenteritis, pancreatitis, diverticulitis, pyelonephritis or stone]. [IV access was established by nursing staff. Patient was given zofran, Maalox]. CBC, BMP, lipase, LFTs, bilirubin and alk phos were obtained. Labs were pertinent for normal white count and normal CMP and urine. Patient nausea improved on re-evaluation but still having pain, given dose of Protonix and Toradol. On reevaluation, the patient states that they are feeling much better. There were no witnessed episodes of vomiting in the emergency department. They are not complaining of any new abdominal pain. Repeat examination did not show any significant guarding or rebound. No new tenderness. At this time I do not feel there is any further emergent treatment to be provided. The patient was given strict return precautions, if they are to develop any worsening abdominal pain, vomiting, or blood in the vomit they are to return to the emergency department immediately. Patient verbally acknowledges understanding these directions. [The patient was informed of the above diagnostic test findings.] No further workup is necessary at this time. They will be discharged home [with prescriptions for omeprazole and Zofran and Bentyl]. They were advised to follow-up with gastroenterology in 2 days. The patient feels that this is appropriate medical decision making and verbalizes an understanding of the discharge instructions. Lab Data 08/11/24 13:20 08/11/24 13:20 Labs: Lab Results 08/11/24 08/11/24 Range/Units 13:20 13:25 WBC 9.9 (4.5-10.0) K/mm3 RBC 4.44 (4.2-5.4) M/mm3 Hgb 13.9 (12.0-15.0) g/dL Hct 42.3 (37.0-47.0) % MCV 95.3 (80-100) fl MCH 31.3 (26-34) pg MCHC 32.9 (32-36) g/dl RDW 12.1 (11.5-14.5) % Plt Count 246 (150-375) k/mm3 MPV 10.8 H (7.4-10.4) fl Immature Gran % (Auto) 0.4 (0-0.5) % Neut % (Auto) 66.5 (45.5-73.1) % Lymph % (Auto) 23.5 (18.3-44.2) % Butler % (Auto) 6.3 (2.6-8.5) % Eos % (Auto) 3.0 (0-4.4) % Baso % (Auto) 0.3 (0.2-1.2) % Lymph # (Auto) 2.34 (0.9-3.2) K/mm3 Butler # (Auto) 0.6 (0.1-0.6) K/mm3 Eos # (Auto) 0.3 (0-0.3) K/mm3 Baso # (Auto) 0.0 (0.0-0.1) K/mm3 Abs Immat Gran (auto) 0.04 H (0.00-0.031) K/mm3 Absolute Neuts (auto) 6.6 (1.3-6.7) K/mm3 Absolute Nucleated RBC 0.000 (0.0-0.012) K/mm3 Nucleated RBC % 0.0 (0.0-0.2) % Sodium 139 (137-145) mmol/L Potassium 4.2 (3.4-5.0) mmol/L Chloride 106 (98-107) mmol/L Carbon Dioxide 22 (22-30) mmol/L Anion Gap 11 (4-12) mmol/L BUN 12 (7-17) mg/dL Creatinine 0.78 (0.7-1.0) mg/dL Estim Creat Clear Calc 101 ml/min Estimated GFR > 60 (59 - ) Glucose 88 (65-110) mg/dL Calcium 9.0 (8.4-10.2) mg/dL Total Bilirubin 0.5 (0.2-1.3) mg/dL AST 16 (14-36) U/L ALT 11 (6-35) U/L Alkaline Phosphatase 69 (38-126) U/L Total Protein 7.0 (6.3-8.2) g/dL Albumin 4.0 (3.5-5.1) g/dL Lipase 166 (23-300) U/L Urine Color Yellow (Yellow) Urine Appearance Clear (Clear) Urine pH 5.0 (5.0-9.0) Ur Specific [place] 1.010 (1.001-1.035) Urine Protein Negative (Negative) mg/dL Urine Glucose (UA) Negative (Negative) mg/dL Urine Ketones Negative (Negative) mg/dL Ur Blood (Man) Negative (Negative) Urine Nitrate Negative (Negative) Urine Bilirubin Negative (Negative) Urine Urobilinogen 0.2 (<2.0) mg/dL Leukocyte Esterase Rfl Negative (Negative) SOPHIE/UL POC Urine HCG, Qual Negative (Negative) Discharge Plan Discharge Clinical Impression: Abdominal pain, LUQ Patient Disposition: Home, Self-Care Condition: Stable Instructions: Acute Nausea and Vomiting (ED), Abdominal Pain (ED) Additional Instructions: Please follow up with your GI doctor and come back to the ER if you feel worse. Patient Language: Chinese Prescriptions: New dicyclomine 20 mg tablet 20 mg PO TID PRN (Reason: abdominal pain) Qty: 30 0RF alum-mag hydroxide-simeth [Maalox Advanced] 200-200-20 mg/5 mL suspension 10 ml PO QID PRN (Reason: dyspepsia) Qty: 300 0RF Rx Instructions: administer between meals and at bedtime ondansetron 4 mg tablet,disintegrating 4 mg PO Q8H PRN (Reason: nausea and vomiting) Qty: 20 0RF omeprazole 40 mg capsule,delayed release(DR/EC) 40 mg PO DAILY Qty: 14 0RF No Action Xolair 75 mg/0.5 mL auto-injector 75 mg subcut MONTHLY cholestyramine (with sugar) 4 gram powder 4 g PO DAILY Qty: 348.6 3RF Rx Instructions: administer w/meal; avoid other meds within 1hr before or 4-6hr after dose cholecalciferol (vitamin D3) 25 mcg (1,000 unit) capsule 25 mcg PO DAILY meloxicam 15 mg tablet 15 mg PO DAILY PRN (Reason: Pain) lisinopril 20 mg tablet 40 mg PO DAILY fexofenadine [Sadaf Allergy] 60 mg Tablet 20 mg PO BID famotidine 10 mg tablet,chewable 10 mg PO DAILY ondansetron 4 mg tablet,disintegrating 4 mg PO Q8H PRN (Reason: nausea and vomiting) Qty: 15 0RF Sadaf See Rx Instructions .ROUTE .COMPLEX Rx Instructions: BID norethindrone ac-eth estradiol [Yen] 1.5-30 mg-mcg tablet 1 tablet PO DAILY epinephrine 0.3 mg/0.3 mL auto-injector 0.3 mg subcut DAILY PRN (Reason: reaction) Flonase 1 inh intranasal DAILY Xifaxan 550 mg tablet 550 mg PO TID Qty: 42 1RF Follow-up/Referrals: Paula Webster RD [Primary Care Provider] -
== END 2024-08-11 14:38 | disposition home or self-care (01) ==
PROVIDERS: Emergency Provider Emergency Medicine
DX: R10.12 Left upper quadrant pain (principal); I10 Essential (primary) hypertension; K21.9 Gastro-esophageal reflux disease without esophagitis; Z87.442 Personal history of urinary calculi; Z87.891 Personal history of nicotine dependence; Z90.49 Acquired absence of other specified parts of digestive tract; Z79.899 Other long term (current) drug therapy; Z79.3 Long term (current) use of hormonal contraceptives
CPT/HCPCS: 36415; 80053; 81003; 81025; 83690; 85025; 96374; 96375; 99284; A9270; J1885; J2470

== ENCOUNTER 2024-08-18 07:31 | Emergency (ER) | payer BC, SELFPAY ==
--- NOTE | ~2024-08-18 | CT_ITS ---
CT of the Abdomen and Pelvis: Indication: Obstruction Technique: 2.5 mm axial scans were obtained through the abdomen and pelvis following intravenous adm inistration of 100 cc of Omnipaque 350. Dose reduction technique was used on this scan by utilizing a utomated exposure control and iterative reconstruction technique. The dose-length product (DLP) was 1 608.37 mGy-cm. COMPARISON: 05/07/2024 Findings: Scans through the lung bases are unremarkable. The liver, spleen, pancreas, adrenals and kidneys are within normal limits. Cholecystectomy clips are present. No evidence of aortic aneurysm. No lymphadenopathy. No bowel obstruction. There is wall thickening of several small bowel loops, compatible with infectio us/inflammatory small bowel enteritis. Images through the pelvis were performed. Urinary bladder unremarkable. No adnexal mass seen. Small t o moderate abdominopelvic ascites present. Impression: Infectious/inflammatory small bowel enteritis with associated small to moderate abdominopelvic ascite s. No evidence for bowel obstruction. Reviewed, dictated and finalized at location . S OPERATIONS ASSISTANT Impression: Infectious/inflammatory small bowel enteritis with associated small to moderate abdominopelvic ascites. No evidence for bowel obstruction.
--- OUTSIDE RECORDS SUMMARY | 2024-08-18 07:33 | XMS_ITS | Clinical Summary ---
Author Organization [facility] Address [address] [facility] [place] [address] Care Team Providers Care Mail Room Clerk Name Role Phone Unavailable Primary Care Provider [...]
--- OUTSIDE RECORDS SUMMARY | 2024-08-18 07:33 | XMS_ITS | Patient Health Record ---
Author Organization [facility] Address [address] [place] [address] Care Team Providers Care Handy Man Name Role Phone Anish Webster Primary Care Provider Unavailabl e Kaleb Garcia Unavailable [phone] Mario Alberto Torres Unavailable [phone] [facility], Provider Unavailable Unavailab le Allergies No Known Allergies Reason For Referral Referral Organization [facility] Referring Provider First Name Kaleb Referring Provider Last Name Radha Referring Provider Speciality Allergy/Im munology General Notes Kita Isaac 024 02:25:42 PM >Jaqueline from [facility] needs a Hives score faxed for the patients Xolair. Case # is [id number] Call Back [phone], Korina Rodríguez 09/22/2023 12:47:11 PM > refaxed Hives score to [phone] with REF# [id number], Seema Andersen 09/30/2023 10:57:53 AM > PA was denied due to not having the Hives score. This is inaccurate. The UAS score was on the 08/19/23 CVN submitted with the PA request. Referral Priority Routine Medications Medication SIG (Take, Route, Frequency, Duration) Notes Start Date End Date Status PEPCID 20 mg 1 tab(s) orally 2 times a day for 30 days Not-Taking CETIRIZINE 10 mg 1 tab(s) orally twic e a day for 30 days Not-Taking FLUTICASONE NASAL 50 mcg/inh 2 spray(s) in each nostril BID for 30 day(s) Not-Taking MONTELUKAST 10 mg 1 tab(s) orally once a day for 30 day(s) Not-Taking VITAMIN D3 10 mcg 1 tab(s) orally once a day for 30 day(s) patient takes 4000mcg daily Not-Taking LISINOPRIL 20 mg 1 tab(s) orally once a day Not-Taking Montelukast Sodium 10 MG TAKE 1 TABLET BY MOUTH DAILY Orally Once a day for 30 days Active CETIRIZINE 10 mg 1 tab(s) orally twic e a day for 30 days Not-Taking Auvi-Q 0.3 MG/0.3ML as directed intramuscularly once for 30 days 10/20/2023 Not-Taking MONTELUKAST 10 mg 1 tab(s) orally once a day for 30 day(s) Not-Taking Cetirizine HCl 10 MG 1 tab(s) orally twice a day for 30 days Not-Taking VITAMIN D3 10 mcg 1 tab(s) orally once a day for 30 day(s) patient takes 4000mcg daily Not-Taking Microgestin 1.5/30 1.5-30 MG-MCG 1 tab(s) orally once a day for 28 day(s) Active Augmentin 500-125 MG 1 tablet Orally every 12 hrs Active Vitamin B-12 100 MCG 1 tab(s) orally once a day for 30 day(s) Active Lisinopril 20 MG 1 tab(s) orally once a day Active Xolair 150 MG as directed 300 mg subcutaneously every 4 weeks for 28 days Active PEPCID 20 mg 1 tab(s) orally 2 times a day for 30 days Active XOLAIR 150 mg as directed 300 mg subcutaneously every 4 weeks for 28 days Active FEXOFENADINE 180 mg 1 tab(s) orally twice a day for 30 days Active MONTELUKAST 10 mg 1 tab(s) orally once a day for 30 days Active Fexofenadine HCl 180 MG 1 tab(s) orally twice a day for 30 days Active EPIPEN 2-RAPHAEL 0.3 mg as directed intramuscularly once for 30 days Active FLUTICASONE NASAL 50 mcg/inh 2 spray(s) in each nostril twice a day for 30 days Active Fluticasone Propionate 50 MCG/ACT 2 spray(s) in each nostril BID for 30 day(s) Active Vitamin D3 10 MCG 1 TAB(S) ORALLY ONCE A DAY for 30 DAY(S) patient takes 4000mcg daily *Please review and pick correct strength-formula tion from [employer] options. If intended option is not shown, discontinue and re-order from Quick Search* Active Wegovy 0.5 MG/0.5ML 0.5 mL Subcutaneous Active EpiPen 2-Raphael 0.3 mg as directed intramuscularly once for 30 days Active EPIPEN 2-RAPHAEL 0.3 mg as directed intramuscularly once for 30 days 10/20/2023 Not-Taking Pepcid 20 mg 1 tab(s) orally 2 times a day for 30 days Active AUVI -Q 0.3 mg as directed intramuscularly once for 30 days 10/20/2023 Not-Taking MICROGESTIN 1.5/30 30 mcg-1.5 mg 1 tab(s) orally once a day for 28 day(s) Not-Taking VITAMIN B-12 100 mcg 1 tab(s) orally once a day for 30 day(s) Not-Taking FEXOFENADINE 180 mg 1 tab(s) orally twice a day for 30 days Not-Taking MONTELUKAST 10 mg 1 tab(s) orally once a day for 30 days Not-Taking Immunizations Vaccine Route Administration Date Status [...] W/U Status Risk Notes Problem Chronic rhinitis (80617388) Chronic rhinitis (J31.0) Active confirmed Problem Hypertrophy of nasal turbinates (49814478) Hypertrophy of nasal turbinates (J34.3) Active confirmed Problem Uncomplicated moderate persistent asthma (582930262) Moderate persistent asthma, uncomplicated (J45.40) Active confirmed Problem Uncomplicated severe persistent asthma (748002505) Severe persistent asthma, uncomplicated (J45.50) Active confirmed Problem Dermatographic urticaria (4368038) 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) Active confirmed Problem Urticaria (270192683) Other urticaria (L50.8) Active confirmed Problem Ingestion dermatitis caused by food (436580565) Dermatitis due to ingested food (L27.2) Active confirmed Vital Signs Respiratory Rate 18 /min 11/17/2023 Blood pressure diastolic 91 mm Hg 08/12/2024 Oximetry 100 % 08/12/2024 Height 66 in 08/12/2024 Blood pressure systolic 127 mm Hg 08/12/2024 Weight 241.6 lbs 05/17/2024 BMI 38.99 kg/m2 05/17/2024 Encounters Encounter Location Date Provider Diagnosis [address] [address] 12/13/2023 Provider [facility] Other urticaria L50.8 and Hypertrophy of nasal turbinates [facility] [address] [address] [facility]/12/[facility]24 Mario Alberto Torres Other Urticaria L50. 8 [address] [facility] [facility] [address] [address] 08/19/2023 Kaleb Greff Dermatographic urticaria L50.3 ; Other urticaria L50.8 ; Hypertrophy of nasal turbinates J34.3 ; Chronic rhinitis J31.0 ; Dermatitis due to ingested food L27.2 and Elevated blood-pressure reading, without diagnosis of hypertension R03.0 [address] [address] 10/20/2023 Kaleb Greff Dermatographic urticaria L50.3 ; Other urticaria L50.8 ; Hypertrophy of nasal turbinates J34.3 ; Chronic rhinitis J31.0 ; Dermatitis due to ingested food L27.2 and Elevated blood-pressure reading, without diagnosis of hypertension R03.0 [address] [address] [address] 11/17/2023 Kaleb Greff Dermatographic urticaria L50.3 ; Other urticaria L50.8 ; Hypertrophy of nasal turbinates J34.3 ; Chronic rhinitis J31.0 ; Dermatitis due to ingested food L27.2 and Elevated blood-pressure reading, without diagnosis of hypertension R03.0 [address] [facility] [address] [address] 12/15/2023 Kaleb Greff Dermatographic urticaria L50.3 ; Other urticaria L50.8 ; Hypertrophy of nasal turbinates J34.3 ; Chronic rhinitis J31.0 ; Dermatitis due to ingested food L27.2 and Elevated blood-pressure reading, without diagnosis of hypertension R03.[address] [address] 01/13/2024 Kaleb Greff Dermatographic urticaria L50.3 ; Other urticaria L50.8 ; Hypertrophy of nasal turbinates J34.3 ; Chronic rhinitis J31.0 ; Dermatitis due to ingested food L27.2 and Elevated blood-pressure reading, without diagnosis of hypertension R03.[address] [address] 02/12/2024 Mario Alberto Brian Other Urticaria L50. [address] [address] 03/11/2024 Mario Alberto Torres Other Urticaria L50. [address] [address] 04/15/2024 Mario Alberto Torres Other Urticaria L50. [address] [address] 05/17/2024 Kaleb Greff Dermatographic urticaria L50.3 ; Other urticaria L50.8 ; Hypertrophy of nasal turbinates J34.3 ; Chronic rhinitis J31.0 ; Dermatitis due to ingested food L27.2 and Elevated blood-pressure reading, without diagnosis of hypertension R03.[address] [address] 06/17/2024 Mario Alberto Torres Other Urticaria L50. [address] [address] 07/15/2024 Mario Alberto Torres Other Urticaria L50. [address] [address] 2024 Kaleb Marxff [address] [address] 07/15/2024 Kaleb Garcia Other urticaria L50. 8 Assessments Encounter Date [...] L50.8) 07/15/2024 Other urticaria (ICD-10 - L50.8) 08/12/2024 Other Urticaria (ICD-10 - L50.8) 05/17/2024 Hypertrophy of nasal [...] itching with ingestion of walnut, pecans, and [place] nuts. Able to tolerate all other TNs/PN without issue. Denies any other symptoms at the time. History sounds more c/w with OAS though unable to confirm due to dermatographia on SPT. Consider ImmunoCAPs if issues persist 12/15/2023 Dermatitis due to ingested food (ICD-10 - L27.2) Noted oral itching with ingestion of walnut, pecans, and [place] nuts. Able to tolerate all other TNs/PN without issue. Denies any other symptoms at the time. History sounds more c/w with OAS though unable to confirm due to dermatographia on SPT. Consider ImmunoCAPs if issues persist 05/17/2024 Dermatitis due to ingested food (ICD-10 - L27.2) Noted oral itching with ingestion of walnut, pecans, and [place] nuts. Able to tolerate all other TNs/PN without issue. Denies any other symptoms at the time. History sounds more c/w with OAS though unable to confirm due to dermatographia on SPT. Consider ImmunoCAPs if issues persist 10/20/2023 Dermatitis due to ingested food (ICD-10 - L27.2) Noted oral itching with ingestion of walnut, pecans, and [place] nuts. Able to tolerate all other TNs/PN without issue. Denies any other symptoms at the time. History sounds more c/w with OAS though unable to confirm due to dermatographia on SPT. Consider ImmunoCAPs if issues persist 11/17/2023 Dermatitis due to ingested food (ICD-10 - L27.2) Noted oral itching with ingestion of walnut, pecans, and [place] nuts. Able to tolerate all other TNs/PN without issue. Denies any other symptoms at the time. History sounds more c/w with OAS though unable to confirm due to dermatographia on SPT. Consider ImmunoCAPs if issues persist 08/19/2023 Dermatitis due to ingested food (ICD-10 - L27.2) Noted oral itching with ingestion of walnut, pecans, and [place] nuts. Able to tolerate all other TNs/PN [...] Continue serial checks and follow-up with PCP 08/12/2024 Other 02/12/2024 Other 03/11/2024 Other 04/15/2024 Other 06/17/2024 Other 07/15/2024 Other Plan Of Treatment Next Appt Details Provider Name:Mario Alberto Torres , 09/09/2024 08:30:00 AM, [address] [facility], [address], [address], Insurance Providers Payer Name Payer Address Payer Phone Subscriber Number Group Number Insured Name Patient Relationship to Insured Coverage Start Date Coverage End Date [facility] [address] [place] [address] [id number] Self - patient is [...]
--- OUTSIDE RECORDS SUMMARY | 2024-08-18 07:33 | XMS_ITS | CCD ---
Author Organization [facility] Address [address] [place] [address] Care Team Providers Care Print Shop Manager Name Role Phone Unavailable Primary Care Provider [...]
--- OUTSIDE RECORDS SUMMARY | 2024-08-18 07:33 | XMS_ITS | Data Portability ---
Author Organization [place] - [facility] [employer], Main Office Address [address] [place] [address] Care Team Providers Care Exchange Specialist Name Role Phone ROSALBA BELLE Primary Care Provider [phone] ROSALBA BELLE Referring Provider [phone] Assessment Encounter Date Assessment Date Assessment LastModified by Organization Details LastModified Time 12/18/2022 12/18/2022 Labs done per [facility]. Pt to check what is due and [...] recorded. Lab lipid panel, serum 2022 023 [facility] (Lab), [address] [place], [address], 08:16:03 lipid panel, serum [address] (Lab), [address] [place], [address], 3 07:59:04 lipid panel, serum [address] (Lab), [address] [place], [address], 3 08:11:55 urinalysis, dipstick 2022 023 [facility], [address] [place] [address], [address], 3 09:59:55 TSH, serum or plasma 2022 023 [facility] (Lab), [address] [place], [address], 3 23:56:16 [email or web address] obin, total, blood [address] (Lab), [address] [place], [address], 3 08:11:55 CMP, serum or plasma 2022 023 [facility] (Lab), [address] [place], [address], 3 23:56:16 CBC w/ auto diff 2022 023 [facility] (Lab), [address] [place], [address], 3 23:56:16 Referral None recorded. Procedures None recorded. Surgeries None recorded. Imaging XR, kidney + ureter + bladder 2022 023 [email or web address] 256 Not available 3 08:56:33 Medication Orders meloxicam 15 mg tablet 2023 024 [id number], [address] [facility], [place], [place], [id number], 4 16:06:34 Wegovy 0.25 mg/0.5 mL subcutaneou s pen injector 2023 024 [id number], [address] [facility], [place], [place], [id number], 4 15:21:54 lisinopril 20 mg tablet 2023 024 [id number], [address] [facility], [place], [place], [id number], 15:38:55 Patient TargetsNo targets recorded. Patient Instructions Encounter Date Encounter Id Patient Instructions Last Modified By Organization Details Last Modified Time 12/18/2022 [id number] INFLUENZA VACCIN E TD/TDAP PNEUMONIA VACCINE Ordered [...] after 12/20/23 Not available 12/18/2022 09:49:52 01/17/2023 [id number] FU in 3 mo for b p eval, hyperlipidemia, obese Not available 01/17/2023 09:29:24 04/18/2023 [id number] FU in 3 mo for b p eval, hyperlipidemia, obese Not available 04/18/2023 08:13:22 03/03/2024 [id number] sciatica: exercises [email or web address] Not available 03/03/2024 15:59:20 [...] homebound status*}} Required Home Health Services: {{none* longterm, physical therapy, occupational therapy longterm, physical therapy longterm}} Durable Medical Equipment needed: {{cane walker wal ker with seat manual wheelchair bedsid e commode oxygen no ne#}} Billing Guidelines CPT code 47773- Transitional Care Management services with moderate medical decision complexity (hduo-mb-ykqv visit within 14 days of discharge). CPT code 74900- Transitional Care Management services with high medical decision complexity (doau-km-geps visit within 7 days of discharge). [email or web address] Not available 03/03/2024 15:59:06 Reason for Referral None Reported. Results Created Date Observation Date Name Description Value Unit Range Abnormal Flag Note LastModifiedBy Organization Detail LastModifiedTime 12/19/19 23 12/18/2022 urina lysis , dipst ick Leukocytes (reference range: negative emmanuelle/ l) Trace Not Available [facility] [place] [address] [place] [address], [place], [address], 12/18/2022 09:46:38 12/19/19 23 12/18/2022 urina lysis , dipst ick Nitrite (reference rage: negative mg/dl) negati ve Not Available [address], [address], 12/18/2022 09:46:38 12/19/19 23 12/18/2022 urina lysis , dipst ick Urobilinogen (reference range: 0.2-1 mg/dl) 0.2 Not Available [address], [address], 12/18/2022 09:46:38 12/19/19 23 12/18/2022 urina lysis , dipst ick Protein (reference range: negative mg/dl) Trace Not Available [address], [address], 12/18/2022 09:46:38 12/19/19 23 12/18/2022 urina lysis , dipst ick pH (reference range: 5-7) 6.0 Not Available [address], [address], 12/18/2022 09:46:38 12/19/19 23 12/18/2022 urina lysis , dipst ick Blood (reference range: negative Chano/ l) Modera te Not Available [address], [address], 12/18/2022 09:46:38 12/19/19 23 12/18/2022 urina lysis , dipst ick Specific [place] (reference range: 1.005-1.030) 1.030 Not Available [facility], [address], 12/18/2022 09:46:38 12/19/19 23 12/18/2022 urina lysis , dipst ick Ketone (reference range: negative mg/dl) Negati ve Not Available [address], [address], 12/18/2022 09:46:38 12/19/19 23 12/18/2022 urina lysis , dipst ick Bilirubin (reference range: negative mg/dl) Negati ve Not Available [address], [address], 12/18/2022 09:46:38 12/19/19 23 12/18/2022 urina lysis , dipst ick Glucose (reference range: negative mg/dl) Negati ve Not Available [address], [address], 12/18/2022 09:46:38 12/19/19 23 12/18/2022 urina lysis , dipst ick Appearance Clear Not Available [address], [address], 12/18/2022 09:46:38 12/19/19 23 12/18/2022 urina lysis , dipst ick Color Yellow Not Available [address], [address], 12/18/2022 09:46:38 12/19/19 XR, abdom en, 1 view [facility] [address], [place] [address] Patislick t Name: LADONNA ELI Access ion #: [id number] Sex: F : 1979 2 Locati [...] shira clips noted. Page 1 of 2 [facility] Pati t Name: LADONNA ELI Access ion #: [id number] Sex: F : 1979 2 Exam [...] 1:35 PM (CT) Page 2 of [address] (Imaging) [address] [place], [address], 12/18/2022 15:33:37 04/04/20 24 04/04/2024 CT, abdom en + pelvi s, w/ contr ast No observ ation record ed. [email or web address] [facility] [address], [place], [address], 04/05/2024 08:42:49 05/08/20 24 05/07/2024 CT, abdom en + pelvi s, w/ contr ast No observ ation record ed. [facility] [address], [place], [address], 05/10/2024 16:35:41 Result Notes None recorded. Problems Name Problem SNOMED Code Status Onset Date Resolution Date Notes Provider Name and Address Organization Details Recorded Time Plantar fasciitis of right foot 59871889882 456523 Active 2021 Not Available [facility] 3 07:30:32 Bacterial conjuncti vitis 088488704 Completed Not Available [facility] 3 07:30:32 Bronchiti s 61269132 Active 2021 Not Available [facility] 3 07:30:32 Strain of neck muscle 292337090 Completed 201602/26/2017 Not Available [facility] 3 07:30:32 Disorder of vitamin D 873440678 Completed Not Available [facility] 3 07:30:32 Dizziness 561362467 Completed 201602/26/2017 Not Available [facility] 3 07:30:32 Obese 475250641 Active 2016 Not Available [facility] 3 07:30:32 Obesity 814653353 Active 2016 Not Available [facility] 3 07:30:32 Itching of skin 711151274 Active 2017 Not Available [facility] 3 07:30:32 History of calculus of kidney 011654284 Active 2016 Not Available [facility] 3 07:30:32 Laryngiti s 72014805 Active 2021 Not Available [facility] 3 07:30:33 Cough 78501035 Active 2021 Not Available [facility] 3 07:30:33 Renal colic 7915920 Completed Not Available [facility] 3 07:30:33 Diabetes mellitus 54329771 Completed Not Available [facility] 3 07:30:33 Ex-smoker 5320601 Active 2016 Not Available [facility] 3 07:30:33 Kidney stone 98801762 Active Not Available [facility] 3 07:30:33 Family history of cancer of colon 485368438 Active 2022 Rosalba Belle NP [address], [place], [address] , [employer] [facility] 3 09:43:59 Family history of breast cancer 822736390 Active 2022 Rosalba Belle NP [address], [place], [address] , [email or web address] [facility] 3 09:44:01 Spasm of urinary bladder 310175312 Active 2022 Rosalba Belle NP [address], [place], [address] , [employer] [facility] 3 09:46:27 Hyperlipi demia 49169156 Active 2022 Rosalba Belle NP [address], [place], [address] , [email or web address] [facility] 3 07:49:48 Essential hypertens ion 51118439 Active 2022 Rosalba Belle NP [address], [place], [address] , [email or web address] [facility] 3 07:50:58 Polycysti c ovary syndrome 887620215 Active 2022 Rosalba Belle NP [address], [place], [address] , [email or web address] [facility] 3 09:09:39 Seasonal allergic rhinitis 586438649 Active 2022 Rosalba Belle NP [address], [place], [address] , [facility] 3 08:16:24 Pain of left knee joint 32316989914 4107 Active 2023 SARAHY Peguero [address] [facility] [place] [address], [place], [address] , [facility] [employer] [facility] 4 16:00:57 Strain of adductor muscle of thigh 248491491 Active 2023 SARAHY Peguero [address] [facility], [place] [address], [place], [address] , [facility] [employer] [facility] [employer] [facility] 4 15:43:27 Problem Notes None recorded. Procedures Surgical History Date Name Laterality Status Provider Name and Address Organization Details Recorded Time 03/03/20 24 Transitional_Ca re_Management completed SARAHY Peguero [address] [facility], [place] [address], [place], [address], [facility] [employer] [facility] 03/03/2024 15:58:43 04/17/20 23 Most Recent Mammogram completed Rosalba Brandt RN [facility] [employer] [facility] 04/18/2023 09:36:28 06/30/19 02 Gallbladder Surgery completed Not Available [facility] 08/28/2022 07:26:44 Imaging Results Imaging Date Name Status LastModified by Organiz ation Details LastModified Time 12/18/2022 XR, abdomen, 1 view completed [facility] (Imaging) [address] [place], [address], 12/18/2022 15:33:37 04/04/2024 CT, abdomen + pelvis, w/ contrast completed [email or web address] [place] [address], [address], 04/05/2024 08:42:49 05/07/2024 CT, abdomen + pelvis, w/ contrast completed [address] [place] [address], [address], 05/10/2024 16:35:41 Procedure Notes None recorded. Medical [...] Updated DateTime 3 170.18 cm 38.9 kg/m2 073367. 36 g 96.5 [degF] 88 /min 20 /min 98 % 98 % 0 150 mm[Hg] 102 mm[Hg] Rosalba Brandt RN [facility] [employer] 3 09:01:49 Date Recorded Systolic blood pressure Diastolic blood pressure Provider Name and Address Organization Details Last Updated DateTime 12/18/2022 142 mm[Hg] 102 mm[Hg] Rosalba Belle NP [address] [facility], [facility] [address], [place], [address], [place] [facility] [employer] [facility] 12/18/2022 09:59:30 Date Recorded Body height Body mass index (BMI) Body weight Body temperature Heart rate Respiratory rate Oxygen saturation Oxygen saturation in Arterial blood by Pulse oximetry Pain severity - 0-10 verbal numeric rating [Score] - Reported Systolic blood pressure Diastolic blood pressure Provider Name and Address Organization Details Last Updated DateTime 3 170.18 cm 38.9 kg/m2 454470. 26 g 97.2 [degF] 87 /min 16 /min 96 % 96 % 0 122 mm[Hg] 78 mm[Hg] Rosalba Brandt RN [facility] [employer] [facility] 3 08:59:13 Date Recorded Body height Body mass index (BMI) Body weight Body temperature Heart rate Respiratory rate Oxygen saturation Oxygen saturation in Arterial blood by Pulse oximetry Pain severity - 0-10 verbal numeric rating [Score] - Reported Systolic blood pressure Diastolic blood pressure Provider Name and Address Organization Details Last Updated DateTime 3 170.18 cm 39.6 kg/m2 281806. 87 g 96.7 [degF] 92 /min 16 /min 97 % 97 % 0 142 mm[Hg] 98 mm[Hg] Rosalba Brandt RN [facility] [employer] [facility] 3 09:34:25 Date Recorded Body height Body mass index (BMI) Body weight Body temperature Heart rate Respiratory rate Oxygen saturation Oxygen saturation in Arterial blood by Pulse oximetry Pain severity - 0-10 verbal numeric rating [Score] - Reported Systolic blood pressure Diastolic blood pressure Provider Name and Address Organization Details Last Updated DateTime 4 170.18 cm 40.3 kg/m2 982461. 04 g 96.9 [degF] 102 /min 20 /min 97 % 97 % 1 158 mm[Hg] 90 mm[Hg] Rosalba Brandt RN [facility] [employer] [facility] 4 15:35:55 Date Recorded Body height Body mass index (BMI) Body weight Body temperature Heart rate Respiratory rate Oxygen saturation Oxygen saturation in Arterial blood by Pulse oximetry Pain severity - 0-10 verbal numeric rating [Score] - Reported Systolic blood pressure Diastolic blood pressure Provider Name and Address Organization Details Last Updated DateTime 4 170.18 cm 37.7 kg/m2 547971. 97 g 98.4 [degF] 103 /min 24 /min 97 % 97 % 1 160 mm[Hg] 98 mm[Hg] Rosalba Brandt RN [place] [facility] 4 15:25:12 Social History Question Answer Notes LastModified by Organizat ion Details LastModified Time Tobacco Smoking Status Never Smoker Not Available [facility] 08/28/2022 07:26:32 Do You Have An Advance Directive? No Information not available 12/18/2022 What Is Your Level Of Alcohol Consumption? Occasional MIGRATION.[id number] 13394 Information not available 08/28/2022 If You Are , What Was Your Level Of Alcohol Consumption Prior To ? Occasional MIGRATION.61622 79191 Information not available 08/28/2022 Is Blood Transfusion [...] COVID-19 While That Case Was Ill? No MIGRATION.04486 42489 Information not available 08/28/2022 In The 14 Days Before Symptom Onset, Have You Had Close Contact With A Person Who Is Under Investigation For COVID-19 While That Person Was Ill? No MIGRATION.57048 65468 Information not available 08/28/2022 What Type Of Diet Are You Following? 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 No MIGRATION.69300 30325 Information not available 08/28/2022 What Is The Fluoride Status Of Your Home? Fluoridated MIGRATION.76901 67649 Information not available 08/28/2022 Do You Use Insect Repellent Routinely? Yes MIGRATION.13138 38872 Information not available 08/28/2022 Where Do You Live? [place] MIGRATION.26027 42982 Information not available 08/28/2022 Do You Have A Medical Power Of Vehicle Body Sander? No Information not available 12/18/2022 How Many Children Do You Have? 0 Information not available 03/03/2024 Do You Have Any Pets? Yes MIGRATION.94852 53386 Information not available 08/28/2022 What Is Your Relationship Status? MIGRATION.92217 09371 Information not available 08/28/2022 Do You Use Your Seat Belt Or Car Seat Routinely? Yes Information not available 12/18/2022 Do You Have Smoke And Carbon Monoxide Detectors In Your Home? Yes MIGRATION.15873 69952 Information not available 08/28/2022 Are You Passively Exposed To Smoke? No MIGRATION.41512 89007 Information not available 08/28/2022 Are There Any Smokers In Your House? No MIGRATION.95718 77080 Information not available 08/28/2022 Do You Participate In Social Media? Yes MIGRATION.60697 23697 Information not available 08/28/2022 What Types Of Sporting Activities Do You Participate In? Walk Information not available 12/18/2022 Do You Feel Stressed (tense, Restless, Nervous, Or Anxious, Or Unable To Sleep At Night)? [id number] Information not available 10/27/2023 Do You Use Any Illicit Or Recreational Drugs? No MIGRATION.19512 36590 Information not available 08/28/2022 Do You Use Sunscreen Routinely? Yes MIGRATION.51904 05732 Information not available 08/28/2022 Have You Recently Traveled Abroad? No Information not available 12/18/2022 Are You Currently In School? No MIGRATION.95711 74252 Information not available 08/28/2022 Sex: Female Functional Status Question Answer Note LastModified by Organizat ion Details LastModified Time What is your exercise level? Occasional Information not available 12/18/2022 Mental Status None recorded. Family History Relationship Description Onset Age of this Age Resolved Age Notes LastModified by Organization Details LastModified Time Mother Malignant tumor of breast [id number] Not available 08/28/2022 07:26:45 Notes:hyper and hypotension Medical History Condition Response BLINDNESS N RHEUMATIC FEVER N KIDNEY STONES N BLADDER PROBLEMS N MRSA N OTHER # 1 N POLIO N LUNG DISEASE/DISORDER N HISTORY OF DRUG ABUSE N RADIATION / CHEMOTHERAPY N COPD N Other # 2 N BLOOD DISEASES N SURGERY N EAR OR HEARING PROBLEMS N MUMPS N SHINGLES N BOWEL PROBLEMS N FEMALE PROBLEMS / INFECTIONS N DEPRESSION (INCLUDING POST ) Y STROKE/TIA N THYROID DISEASE N ULCERS N BENIGN PROSTATIC HYPERPLASIA N MEASLES N CERVICALGIA N HYPOTENSION N TB SKIN TEST N MYOCARDIAL INFARCTION N PARAPELGIA N OBESITY [...] GLAUCOMA N FOOT PROBLEM N DIVERTICULITIS N CHICKENPOX N SLEEP APNEA N ALLERGIES/HAYFEVER Y INFECTIOUS DISEASE N HEART ARRHYTHMIA N PROSTATE N INSOMNIA N HIGH CHOLESTEROL / HYPERLIPIDEMIA N HYPERTHYROIDISM N EYE PROBLEMS N EATING DISORDER N EDEMA N CHRONIC PAIN SYNDROME N CONSTIPATION N CAROTID BLOCKAGE N BACK / NECK PROBLEMS N HAVE YOU BEEN HOSPITALIZED OR SEEN IN [facility] IN THE PAST YEAR ? Y [...] DISORDER N ALZHEIMER'S DISEASE N PAIN N HERPES N DEMENTIA N HEADACHES/MIGRAINES N SEIZURES/EPILEPSY N VASCULAR DISEASE N PACEMAKER N DIZZINESS N HEART DISEASE/HEART PROBLEMS N KIDNEY DISEASE N DEVELOPMENTAL OR BEHAVIORAL DISORDERS N MULTIPLE SCLEROSIS N SCARLET FEVER N MENTAL DISORDER/ILLNESS N CARDIAC ARRHYTHMIA N CANCER: SPECIFY N PNEUMONIA Y ATRIAL FIBRILLATION N Gall [...] quadrivalent, PF 3 completed Rosalba Brandt RN [facility], [facility] 04/18/2023 11:21:41 Influenza, split virus, trivalent, preservative 5 completed Not Available [facility] 08/28/2022 07:34:51 Influenza, split virus, quadrivalent, preservative 9 completed Not Available [facility] 08/28/2022 07:34:51 Influenza, split virus, quadrivalent, preservative 8 completed Not Available [facility] 08/28/2022 07:34:51 Influenza, split virus, quadrivalent, preservative 7 completed Not Available [facility] 08/28/2022 07:34:51 Influenza, split virus, trivalent, preservative 6 completed Not Available [facility] 08/28/2022 07:34:51 Tdap 7 completed Not Available [facility] 08/28/2022 07:34:51 Past Encounters Encounter ID Performer Location Encounter Start Date Encounter Closed Date Diagnosis/Indication Diagnosis SNOMED-CT Code Diagnosis ICD10 Code Diagnosis Note [id number] [facility] [place] [address] [place] [address] 11/14/2021 00:00:00 11/14/2021 10:35:00 [id number] [facility] [place] [address] [place] [address] 04/19/2022 00:00:00 04/19/2022 15:24:46 [id number] _ELLIS_M IGRATION_ DEFAULT_1 _1 , 06/03/2022 00:00:00 06/03/2022 15:35:29 [id number] [facility] [place] [address] [place] [address] 07/08/2022 00:00:00 07/08/2022 12:08:10 [id number] [facility] [place] [address] [place] [address] 08/05/2022 00:00:00 08/05/2022 15:32:02 [id number] [facility] [place] [address] [place] [address] 09/09/2022 14:04:36 09/09/2022 14:47:25 Plantar fasciitis of right foot 7296427315 3204092 M72.2 90% improvedEd ucated on shoe gear, orthotics, physical therapyCon tinued at-home physical therapyrec ommend night splintReco mmend physical therapy -- does not want to go due to scheduledf ollow-up as needed [id number] Rosalba Belle NP [address] [address] 12/18/2022 08:45:45 12/18/2022 09:59:59 Adult health examination 987391379 Z00.00 Encouraged well balanced meals, active lifestyle, and routine vision and dental appts. Obese 017835886 E66.9 Continue brisk walking 4 days weekly for 45 min continuous . Reduce carbs and sugar. Discussed in depth to dring 64 ounces water, minimum. Avoid large meals. Anemia screening 9677663 07 Z13.0 Diabetes m ellitus screening 297256645 Z13.1 Thyroid di sorder screening 857575125 Z13.29 Hyperlipid emia screening 244629918 Z13.220 Family his tory of cancer of colon 304133129 Z80.0 Colonoscop y done 4132-7330. Family his tory of breast cancer 361095864 Z80.3 Seeing [facility]. Spasm of u rinary bladder 558920077 N32.89 urine dip + blood. KUB ordered. [id number] Rosalba Belle NP [address] [address] 01/17/2023 08:49:55 01/17/2023 09:31:31 Obese 436641826 E66.9 Continue brisk walking 4 days weekly for 45 min continuous . Reduce carbs and sugar. Discussed in depth to drink 64 ounces water, minimum. Avoid large meals. Hyperlipidemia 55674166 E78.5 Low fat diet. Stay active. Essential hypertension 44859239 I10 < 2 gm sodium diet.Weigh t management advised and encouraged .Avoid caffeine.I mproved with relaxation . Polycystic ovary syndrome 426046724 E28.2 Seeing [facility] [employer] [facility]. [id number] Rosalba Belle NP [address] [address] 04/18/2023 09:20:45 04/18/2023 10:19:34 Essential hypertension 43180571 I10 < 2 gm sodium diet.Weigh t management advised and encouraged .Avoid caffeine.I mproved with relaxation . Hyperlipidemia 07658129 E78.5 Low fat diet. Stay active. Obese 527513748 E66.9 Continue brisk walking 4 days weekly for 45 min continuous . Reduce carbs and sugar. Discussed in depth to drink 64 ounces water, minimum. Avoid large meals. Polycystic ovary syndrome 245821420 E28.2 Seeing [facility] [employer]. Seasonal a llergic rhinitis 696653666 J30.2 flonase, montelukas t Administra tion of influenza vaccine 88746105 Z23 flu shot [id number] SARAHY Peguero [address] [address] 10/27/2023 15:13:58 10/27/2023 16:06:59 Essential hypertension 35065725 I10 Obesity 880564809 E66.9 Pain of le ft knee joint 1029645386 52372 M25.988 [id number] SARAHY Peguero [address] [address] 03/03/2024 15:16:07 03/03/2024 16:09:34 Transition of care 1983182529 105 Z75.8 Patient scheduled to see GI Essential hypertension 33524935 I10 Will take 2 20 mg lisinopril until she runs out to trail 40 mg Strain of adductor muscle of thigh 799961859 S76.211D Health Concerns Section Related Observation LastModified by Organization Detai ls LastModified Time None Recorded Concern Status LastModified by Organization Details LastModified Time None Recorded Advance Directives Directive N: Payers Encounter Date Sequence Insurance Name Policy Number Policy Meléndez Covered Member ID Meléndez Member ID Guarantor Name 12/18/2022 1 [employer]) 113 Melissa Eli [id number] Melissa Eli 01/17/2023 1 [employer] 113 Melissa Eli [id number] Melissa Eli 04/18/2023 1 [employer] 113 Melissa Eli [id number] Melissa Eli 10/27/2023 1 [employer] 113 Melissa Eli [id number] Melissa Eli 03/03/2024 1 [employer] 113 Melissa Eli [id number] Melissa Eli Notes Date Note Type Note Provider Name and Address Organization Details Recorded Time 12/18/2022 text/html Here for stephy lynn Vit d def- Taking vit d supplementAllergie s- using wallitin otc nightly. Gets itchy. Welts up after scratching.Contrac eption- physician gynecologist. Had er visit in august for kidney stone. Said it was far up. Unsure if she passed it. Having pain and bladder spasms on Friday and occasional last night. No sure if another stone. Doesn't see urology. Has no blood in urine. Rosalba Belle, JANINE [address] [facility], [facility] [address], [place], [address], [facility] [employer] 12/18/2022 09:59:50 01/17/2023 text/html Here for 1 mo fu on raised BP. Did get labs and found high lipid. Diet and lifestyle mods recommended. Elevated BP- Improved today. Just back from vacation.Obese- Same as 1 mo ago. Has appt set up with convalescent sitter in [place], [place] for January.Mammogram ordered prev, scheduled for Feb 2023.WWE with Dina due for April 04, 2023. Rosalba Belle NP [address] [facility], [place], [address], [place] [employer] [facility] 01/17/2023 09:29:56 04/18/2023 text/html Here for 6 mo fu . Hyperlipidemia- Trying to improve diet.HTN- Stable.Obese- increased a bit.allergies- stable. Flonase prn.Has been diagnosed with Demographic urticaria. Started on flonase, zyrtec bid, pepcid bid, montelukast. Vision- utdDental-utd Mammogram done 04/17/23.WWE rescheduled April. Rosalba Belle NP [address] [facility], [place], [address], [place] [employer] [facility] 04/18/2023 09:59:26 10/27/2023 text/html Melissa Eli i s a 43 year old female patient here to transition care. She was previously under the care of Rosalba Belle DNP. Her past medical history is significant for seasonal allergies. She is seeing an convalescent sitter. She is currently taking Sadaf, flonase, montelukast [...] SARAHY Peguero [address], [place], [address], [facility] [employer] [facility] [employer] [facility] 10/27/2023 16:06:32 03/03/2024 text/html Melissa Eli i s a 44 year old female patient here today for an hospital FU. She went to the ER on 02/27 with nausea and left sided pain. Was admitted for SB infection and inflammation. Had a bowel study due to lack of bowel movement.Has a FU colonoscopy in 10-03, awaiting insurance pre-auth. Will be done with [facility]. After discharge has been sluggish, fatigued, and had mild discomfort. Able to eat and keep food down, is having bowel movement. We started lisinopril in September, since her BP has still been high. Will increase lisinopril to 40 mg PO daily SARAHY Peguero [address], [place], [address], [employer] 03/03/2024 15:59:23 OBGyn Episode No OBEpisode recorded.
--- OUTSIDE RECORDS SUMMARY | 2024-08-18 07:33 | XMS_ITS ---
Author Organization [facility] Address [address] [place] [address] Care Team Providers Care Associate Dentist Name Role Phone Unavailable Unavailable Unavailable Surgery Details Not on file Complications Check Surgery Details section. Procedure Estimated Blood Loss Check Surgery Details section. Procedure Findings Check Surgery Details section. Procedure Specimens Taken Check Surgery Details section.
--- OUTSIDE RECORDS SUMMARY | 2024-08-18 07:33 | XMS_ITS | Encounter Summary ---
Author Organization [facility] Address [address] [place] [address] Care Team Providers Care Cattle And Wheat Farmer Name Role Phone Unavailable Primary Care Provider Unavailabl e Prior Encounters Date Type Department Care Team Description 07/19/2019 Converted 13x Documents [facility] [address] [place] [address] <No scans attached> 07/19/2019 Converted 13x Documents [facility] [address] [place] [address] <No scans attached> Plan of Treatment Not on file Visit Diagnoses Not on file
--- OUTSIDE RECORDS SUMMARY | 2024-08-18 07:34 | XMS_ITS ---
Author Organization [facility] Address [address] [place] [address] Care Team Providers Care Machine Umbrella Tipper Name Role Phone Anish Webster Primary Care Provider Kaleb Iverson Unavailable [phone] Mario Alberto Torres Unavailable [phone] REASON FOR VISIT CIU follow-up, Xolair administration scheduled today, Needs evaluation for pre- Xolair health questionaire to assess health status and medication review Medications Medication SIG (Take, Route, Frequency, Duration) Notes Start Date End Date Status Fexofenadine HCl 180 MG 1 tab(s) orally twice a day for 30 days Active Microgestin 1.5/30 1.5-30 MG-MCG 1 tab(s) orally once a day for 28 day(s) Active Vitamin B-12 100 MCG 1 tab(s) orally once a day for 30 day(s) Active Lisinopril 20 MG 1 tab(s) orally once a day Active Xolair 150 MG as directed 300 mg subcutaneously every 4 weeks for 28 days Active Fluticasone Propionate 50 MCG/ACT 2 spray(s) in each nostril BID for 30 day(s) Active Vitamin D3 10 MCG 1 TAB(S) ORALLY ONCE A DAY for 30 DAY(S) patient takes 4000mcg daily *Please review and pick correct strength-formula tion from Medispan options. If intended option is not shown, discontinue and re-order from Quick Search* Active Wegovy 0.5 MG/0.5ML 0.5 mL Subcutaneous Active EPIPEN 2-SUE 0.3 mg as directed intramuscularly once for 30 days 10/20/2023 Not-Taking AUVI -Q 0.3 mg as directed intramuscularly once for 30 days 10/20/2023 Not-Taking PEPCID 20 mg 1 tab(s) orally 2 times a day for 30 days Not-Taking MICROGESTIN 1.5/30 30 mcg-1.5 mg 1 tab(s) orally once a day for 28 day(s) Not-Taking VITAMIN B-12 100 mcg 1 tab(s) orally once a day for 30 day(s) Not-Taking FEXOFENADINE 180 mg 1 tab(s) orally twice a day for 30 days Not-Taking MONTELUKAST 10 mg 1 tab(s) orally once a day for 30 days Not-Taking CETIRIZINE [...] 1 tab(s) orally once a day Not-Taking XOLAIR 150 mg as directed 300 mg subcutaneously every 4 weeks for 28 days Active CETIRIZINE 10 mg 1 tab(s) orally twic e a day for 30 days Not-Taking MONTELUKAST 10 mg 1 tab(s) orally once a day for 30 day(s) Not-Taking VITAMIN D3 10 mcg 1 tab(s) orally once a day for 30 day(s) patient takes 4000mcg daily Not-Taking Augmentin 500-125 MG 1 tablet Orally [...] directed intramuscularly once for 30 days Active Pepcid 20 mg 1 tab(s) orally 2 times a day for 30 days Active Montelukast Sodium 10 MG TAKE 1 TABLET BY MOUTH DAILY Orally Once a day for 30 days Active Auvi-Q 0.3 MG/0.3ML as directed intramuscularly once for 30 days 10/20/2023 Not-Taking Cetirizine HCl 10 MG 1 tab(s) orally twice a day for 30 days Not-Taking Vital Signs Blood pressure systolic 127 mm Hg 08/12/19 25 Blood pressure diastolic 91 mm Hg 025 Oximetry 100 % 08/12/2024 Height 66 in 08/12/2024 Encounters Encounter Location Date Provider Diagnosis [facility] [address] [facility] [address] [place] [address] 08/12/2024 Mario Alberto Brian Other Urticaria L50. 8 Assessments Encounter Date Diagnosis (ICD Code) Assessment Notes Treatment Notes Treatment Clinical Notes Section Notes 08/12/2024 Other Urticaria (ICD-10 - L50.8) 08/12/2024 Other Plan Of Treatment Next Appt Details Follow Up: As scheduled for Xolair, Reason: Provider Name:Mario Alberto PriscaAlice Torres , 09/09/2024 08:30:00 AM, [address], [address], [place], [address], Procedure Notes * Category Sub-Category Detail Notes XOLAIR (omalizumab) Administration Dosing Time / Vitals Corbin Laurenanna 08/12/2024 08:06:54 AM CREPE SOLE WIRE BRUSHER >, Time of administration, See initial vitals Dosage 300 mg (60 units) Location CORAZON Reaction None Frequency q 4 weeks AIE (epinephrine) on patient? yes Lot Number / Expiration Lot Number(s):[id number] , Expiration Date: 09/2024 Post-procedural check-out: Tracy Laurena 08/12/2024 08:40:39 AM CREPE SOLE WIRE BRUSHER >, Vital signs taken 30 minutes after dosing administration: bp: 118/70 hr: 55 so2: 98 Medication Source XOLAIR Source: Buy and Bill Source Verification:: Who pulled drug (p lease type staff name in notes)? KW Medical necessity for in-off ice administration: The patient or caregiver is not suitable , not competent or is physically unable to administer the XOLAIR product FDA-labeled for self-administration for the following reason(s):: Accordingly, this patient requires direct monitoring and administration by a healthcare professional Progress Notes * Melissa ELIDOB: 0 (44 yo F)Acc No.[id number]:08/12/2024 Xolair Only Patient: Melissa RUBY Provider: Dany Torres MD :1980 A ge:44 Y S ex:Female Date:08/12/2024 Address:[address] [place], [place] [id number] Pcp:Anish Webster Subjective: * Chief Complaints: * 1 . CIU follow-up, Xolair administration scheduled today. 2. Needs evaluation for pre-Xolair health questionaire to assess health status and medication review. * HPI: * Introduction: The patient is [...] history, othwise unremarkable. * Medical History: * Medications: T aking Pepcid 20 mg tablet 1 tab(s) orally 2 times a day , Taking EpiPen 2-Sue 0.3 mg kit as directed intramuscularly once , Taking Pepcid 20 mg tablet 1 tab(s) orally 2 times a day , Taking EpiPen 2-Sue 0.3 mg kit as directed intramuscularly once , Taking FLUTICASONE NASAL 50 mcg/inh spray 2 spray(s) in each nostril twice a day , Taking MONTELUKAST 10 mg tablet 1 tab(s) orally once a day , Taking FEXOFENADINE 180 mg tablet 1 tab(s) orally twice a day , Taking XOLAIR 150 mg powder for injection as directed 300 mg subcutaneously every 4 weeks , Taking Augmentin 500-125 MG Tablet 1 tablet Orally every 12 hrs , Taking Wegovy 0.5 MG/0.5ML Solution Auto-injector 0.5 mL Subcutaneous , Taking Vitamin D3 10 MCG TABLET 1 TAB(S) ORALLY ONCE A DAY , Notes to Pharmacist: patient takes 4000mcg daily *Please review and pick correct strength-formulation from Medispan options. If intended option is not shown, discontinue and re-order from Quick Search*, Taking Fluticasone Propionate 50 MCG/ACT Suspension 2 spray(s) in each nostril BID , Taking Fexofenadine HCl 180 MG Tablet 1 tab(s) orally twice a day , Taking Xolair 150 MG Solution Reconstituted as directed 300 mg subcutaneously every 4 weeks , Taking Lisinopril 20 MG Tablet 1 tab(s) orally once a day , Taking Vitamin B-12 100 MCG Tablet 1 tab(s) orally once a day , Taking Microgestin 1.5/30 1.5-30 MG-MCG Tablet 1 tab(s) orally once a day , Taking Montelukast Sodium 10 MG Tablet TAKE 1 TABLET BY MOUTH DAILY Orally Once a day , Not-Taking/PRN VITAMIN D3 10 mcg tablet 1 tab(s) orally once a day , Notes to Pharmacist: patient takes 4000mcg daily, Not-Taking/PRN MONTELUKAST 10 mg tablet 1 tab(s) orally once a day , Not-Taking/PRN CETIRIZINE 10 mg tablet 1 tab(s) orally twice a day , Not-Taking/PRN LISINOPRIL 20 mg tablet 1 tab(s) orally once a day , Not-Taking/PRN VITAMIN D3 10 mcg tablet 1 tab(s) orally once a day , Notes to Pharmacist: patient takes 4000mcg daily, Not-Taking/PRN MONTELUKAST 10 mg tablet 1 tab(s) orally once a day , Not-Taking/PRN FLUTICASONE NASAL 50 mcg/inh spray 2 spray(s) in each nostril BID , Not-Taking/PRN CETIRIZINE 10 mg tablet 1 tab(s) orally twice a day , Not-Taking/PRN PEPCID 20 mg tablet 1 tab(s) orally 2 times a day , Not-Taking/PRN MONTELUKAST 10 mg tablet 1 tab(s) orally once a day , Not- Taking/PRN FEXOFENADINE 180 mg tablet 1 tab(s) orally twice a day , Not-Taking/PRN VITAMIN B-12 100 mcg tablet 1 tab(s) orally once a day , Not-Taking/PRN MICROGESTIN 1.5/30 30 mcg-1.5 mg tablet 1 tab(s) orally once a day , Not-Taking/PRN AUVI -Q 0.3 mg kit as directed intramuscularly once , Not-Taking/PRN EPIPEN 2-SUE 0.3 mg kit as directed intramuscularly once , Not-Taking/PRN Cetirizine HCl 10 MG Tablet 1 tab(s) orally twice a day , Not-Taking/PRN Auvi-Q 0.3 MG/0.3ML Solution Auto-injector as directed intramuscularly once Objective: * Vitals: B P:127/91mm Hg, HR:81/min, Pulse Oximetry:100%, CU-Q2oL: 22, UAS7: 1, Ht: 66 in. Assessment: * Assessment: 1. O ther Urticaria - L50.8 (Primary) Plan: * Treatment: * Procedures: Franklin MARES (omalizumab) Administration: Dosing Time / Vitals B Swati esquivel 08/12/2024 08:06:54 AM CREPE SOLE WIRE BRUSHER >, Time of administration, See initial vitals. Dosage 3 00 mg (60 units). Location L UA. Reaction N one. Frequency q 4 weeks. AIE (epinephrine) on patient? y es. Lot Number / Expiration L ot Number(s):[id number] , Expiration Date: 09/2024. Post-procedural check-out: Swati Tatum 08/12/2024 08:40:39 AM CREPE SOLE WIRE BRUSHER >, Vital signs taken 30 minutes after dosing administration: bp: 118/70 hr: 55 so2: 98. Medication Source X OLAIR Source B uy and Bill S ource Verification: W ho pulled drug (please type staff name in notes)? KW Medical necessity for in-police commanding officer: T he patient or caregiver is not suitable, not competent or is physically unable to administer the XOLAIR product FDA-labeled for self-administration for the following reason(s): A ccordingly, this patient requires direct monitoring and administration by a healthcare professional * Preventive Medicine: R wang boxed warning on prescribed medication: Xolair: anaphylaxis, CV disease, malignancy. After discussing risks/benefits/alternatives, patient has agreed to start/continue Xolair therapy. No new symptoms of cardiac disease, malignancy and no symptoms of anaphylaxis. * Follow Up: A s scheduled for Xolair * Billing Information: * Visit Code: * Procedure Codes: 50207 CHEMO, ANTI-NEOPL, SQ/IM. Units: 2.00. Modifiers: 76 07269 PT-FOCUSED HLTH RISK ASSMT. J2357 NOC Xolair 150 mg PFS. Units: 60.00. Modifiers: JZ * Electronic signature of Arnold Torres MD, FAAAAI on 08/18/2024 at 07:33 AM CREPE SOLE WIRE BRUSHER Sign off status: Pending * Provider: Dany Torres MD Date: 0 08/12/2024 Generated for Hernando duran/Brayan/Mitzy on: 0 08/18/2024 07:33 AM CREPE SOLE WIRE BRUSHER History and Physical Notes * HPI (History [...]
--- OUTSIDE RECORDS SUMMARY | 2024-08-18 07:34 | XMS_ITS ---
Author Organization [facility] Address [address] [place] [address] Care Team Providers Care Breaker Mechanic Name Role Phone Anish Webster Primary Care Provider Kaleb Iverson [phone] REASON FOR VISIT Refills Medications Medication SIG (Take, Route, Frequency, Duration) Notes Start Date End Date Status Montelukast Sodium 10 MG TAKE 1 TABLET B Y MOUTH DAILY Orally Once a day for 30 days Active Encounters Encounter Location Date Provider Diagnosis [facility] [email or web address] [place] [address] 07/15/2024 Kaleb Garcia Other urticaria L50.8 Assessments Encounter Date Diagnosis (ICD Code) Assessment Notes Treatment Notes Treatment Clinical Notes Section Notes 07/15/2024 Other urticaria (ICD-10 - L50.8) Plan Of Treatment Medication Medication Name Sig Start Date Stop Date Notes Montelukast Sodium 10 MG TAKE 1 TABLET B Y MOUTH DAILY Orally Once a day for 30 days Next Appt Details Provider Name:Mario Alberto Torres , 09/09/2024 08:30:00 AM, [address] [employer] [employer], [place], [address], Progress Notes * Melissa ELIDOB: 0 (44 yo F)Acc No.[id number]:07/15/2024 Patient: Madhu EVANSMelissa FRIED :1980 A ge:44 Y S ex:Female Address:[address] [place] [address] * Refills Refill Montelukast Sodium Tablet, 10 MG, Orally, 30, TAKE 1 TABLET BY MOUTH DAILY, Once a day, 30 days, Refills=2 * true * Date: Generated for Hernando duran/Brayan/Mitzy on: 0 08/18/2024 07:34 AM ASSISTANT PROFESSOR OF ART
--- OUTSIDE RECORDS SUMMARY | 2024-08-18 07:34 | XMS_ITS ---
Author Organization [facility] Address [address] [place] [address] Care Team Providers Care Electrocardiograph Repairer Name Role Phone Anish Webster Primary Care Provider Kaleb Iverson Unavailable [phone] Mario Alberto Torres Unavailable [phone] REASON FOR VISIT CIU follow-up, Xolair administration [...] review and pick correct strength-formula tion from [employer] options. If intended option is not shown, [...] Blood pressure diastolic 87 mm Hg 025 Oximetry 99 % 07/15/2024 Height 66 in 07/15/2024 Encounters Encounter Location Date Provider Diagnosis [facility] [address] [facility] [address] [place] [address] 07/15/2024 Mario Alberto Brian Other Urticaria L50. 8 Assessments Encounter Date Diagnosis (ICD Code) Assessment Notes Treatment Notes Treatment Clinical Notes Section Notes 07/15/2024 Other Urticaria (ICD-10 - L50.8) 07/15/2024 Other Plan Of Treatment Next Appt Details Follow Up: As scheduled for Xolair, Reason: Provider Name:Mario Alberto Torres , 09/09/2024 08:30:00 AM, [address], [address], [place], [address], Procedure Notes * Category Sub-Category Detail Notes XOLAIR (omalizumab) Administration Dosing Time / Vitals TimothyosmanramírezSwati Morena 07/15/2024 08:27:06 AM TREATING ENGINEER >, Time of administration, See initial vitals Dosage 300 mg (60 units) Location CORAZON, KEVIN Reaction None Frequency q 4 weeks AIE (epinephrine) on patient? yes Lot Number / Expiration Lot Number(s): [id number] , Expiration Date: 06/2025 Post-procedural check-out: Tracy Laurena Morena 07/15/2024 09:08:19 AM TREATING ENGINEER >, Vital signs taken 30 minutes after [...] * Melissa ELIDOB: 0 (44 yo F)Acc No.[id number]:07/15/2024 Xolair Only Patient: Melissa RUBY Provider: Dany Torres MD :1980 A ge:44 Y S ex:Female Date:07/15/2024 Address:[address] [place], [place] [id number] Pcp:Anish Webster Subjective: * Chief Complaints: * [...] *Please review and pick correct strength-formulation from [employer] options. If intended option is not shown, [...] / Vitals Swati Tatum 07/15/2024 08:27:06 AM TREATING ENGINEER >, Time of administration, See initial vitals. Dosage 3 00 mg (60 units). Location L UA, KEVIN. Reaction N one. Frequency q 4 weeks. AIE (epinephrine) on patient? y es. Lot Number / Expiration L ot Number(s): [id number] , Expiration Date: 06/2025. Post-procedural check-out: Swati Tatum 07/15/2024 09:08:19 AM TREATING ENGINEER >, Vital signs taken 30 minutes after dosing administration: BP: 120/80 H R: 89 SPO2: 98. Medication Source X OLAIR Source B michael and Kendall ruiz Verification: W jim pulled drug (please type staff name in notes)? belen Medical necessity for in-forest fire control officer: T he patient or caregiver is not suitable, not competent or is physically unable to administer the XOLAIR product FDA-labeled for self-administration for the following reason(s): T he location and circumstances for self-administration are not adequate for the potential treatment of anaphylaxis should that arise * Procedure Codes: 9 6401 CHEMO, ANTI-NEOPL, SQ/IM, Units: 2.00 , Modifiers: 76 53541 PT-FOCUSED HLTH RISK [id number] NOC Xolair 150 mg PFS, Units: 60.00 [...] Information: * Visit Code: * Procedure Codes: 80547 CHEMO, ANTI-NEOPL, SQ/IM. Units: 2.00. Modifiers: 76 66000 PT-FOCUSED HLTH RISK ASSMT. J2357 NOC Xolair 150 mg PFS. Units: 60.00. Modifiers: JZ * TING ENGINEER Electronically co-signed by Mario Alberto Torres MD, FAAAAI on 07/20/2024 at 12:27 PM TREATING ENGINEER Sign off status: Completed true * Provider: Dany Torres MD Date: 0 07/15/2024 Generated for Hernando duran/Brayan/Ashlieitting on: 0 08/18/2024 07:33 AM TREATING ENGINEER History and Physical Notes * HPI (History [...]
--- OUTSIDE RECORDS SUMMARY | 2024-08-18 07:34 | XMS_ITS | Referral Summary ---
Author Organization [facility] Address [address] [place] [address] Care Team Providers Care Mailing Machine Assistant Name Role Phone Unavailable Primary Care Provider [...]
[2024-08-18 07:57] VITALS: BP 115/81; PULSE 97; RESP 18; TEMP 36.6; O2SAT 100
--- NOTE | 2024-08-18 07:58 | ED.ABDPAIN ---
HPI - Abdominal Pain General Chief Complaint: Abdominal Pain Stated Complaint: abd pain since yesterday Time Seen by Provider: 08/18/24 07:40 History of Present Illness HPI narrative: Patient is a 44-year-old female who presents ER with abdominal pain. Epigastric area associated with nausea vomiting. Began last night around 6:00 p.m. and has worsened throughout the evening. Has history of bowel obstruction. Denies fevers or chills. No urinary symptoms. No alleviating factors. Related Data Home Medications ?Medication ?Instructions ?Recorded ?Confirmed ?Last Taken ?Type cholecalciferol (vitamin D3) 25 25 mcg PO DAILY 04/30/21 06/03/24 03/21/24 History mcg (1,000 unit) capsule fexofenadine 60 mg tablet (Sadaf 20 mg PO BID 02/21/24 06/03/24 03/21/24 History Allergy) lisinopril 20 mg tablet 40 mg PO DAILY 02/21/24 06/03/24 03/21/24 History meloxicam 15 mg tablet 15 mg PO DAILY PRN Pain 02/21/24 06/03/24 03/21/24 History Sadaf See Rx Instructions .Route .COMPLEX 03/11/24 06/03/24 Unknown History Flonase 1 inh intranasal DAILY 03/11/24 06/03/24 03/21/24 History epinephrine 0.3 mg/0.3 mL 0.3 mg subcut DAILY PRN reaction 03/11/24 06/03/24 03/21/24 History injection, auto-injector norethindrone acetate 1.5 1 tablet PO DAILY 03/11/24 06/03/24 03/21/24 History mg-ethinyl estradiol 30 mcg tablet (Yen) famotidine 10 mg chewable tablet 10 mg PO DAILY 06/01/24 06/03/24 Unknown History omalizumab 75 mg/0.5 mL 75 mg subcut MONTHLY 06/01/24 06/03/24 Unknown History subcutaneous auto-injector (Xolair) Allergies Allergy/AdvReac Type Severity Reaction Status Date / Time morphine AdvReac Swelling Verified 08/18/24 08:02 of Lip/Tongue/Throat Review of Systems Review of Systems: All systems reviewed & are unremarkable except as noted in HPI and below Constitutional: Constitutional: Reports no additional constitutional complaints Cardiovascular: Cardiovascular: Reports no additional cardiovascular complaints Respiratory: Respiratory: Reports no additional respiratory complaints Gastrointestinal: Gastrointestinal: Reports no additional gastrointestinal complaints [facility] Past Medical History Medical History GERD (gastroesophageal reflux disease) Hypertension Kidney stones Surgical History Surgical History History of cholecystectomy History of extraction of renal calculus Family History Family History Father Hypertension Mother Breast cancer Grandparent Breast cancer Diabetes mellitus Social History Social History Smoking status: Former smoker Tobacco type: cigarettes Alcohol intake: current Alcohol use details: socially Substance use: never Substance use type: does not use Do You Feel Safe in your Home?: Yes Lack of Transportation: No Lack of Food: Never True Current Housing: I Have Housing Concerned About Future Housing: No Difficulty Paying Gas/Electric Bills: No Difficulty Paying for Meds: No Currently Unemployed: No Education: Associate Degree Difficulty w/ Childcare or Family Care: No Living arrangements: with family Occupation/Education: occupation 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 HEAD: Normocephalic, atraumatic. ENT: Mucous membranes moist. CHEST: Clear to auscultation. No respiratory distress. HEART: Regular rate and rhythm. Normal peripheral pulses. ABDOMEN: Soft, mild tenderness of the upper quadrants and epigastrium without guarding, nondistended. EXTREMITIES: Normal range of motion. No edema. SKIN: Warm, dry, no rash. NEURO: Alert and oriented x3. PSYCH: Normal mood and affect. Course Course Emergency Course: Patient resting comfortably. Symptoms improving with the dicyclomine/simethicone/fluids. Discussed lab and imaging findings. Appropriate for discharge home with supportive care. Recommend clear liquid diet slowly progressing his symptoms collected. Vital Signs Vital signs: Vital Signs Temperature 97.8 F 08/18/24 07:57 Pulse Rate 97 08/18/24 07:57 Respiratory Rate 18 08/18/24 07:57 Blood Pressure 115/81 08/18/24 07:57 Pulse Oximetry 100 08/18/24 07:57 Oxygen Delivery Room Air 08/18/24 07:57 Temperature 97.8 F 08/18/24 07:57 Pulse Rate 97 08/18/24 07:57 Respiratory Rate 18 08/18/24 07:57 Blood Pressure 115/81 08/18/24 07:57 Pulse Oximetry 100 08/18/24 07:57 Oxygen Delivery Room Air 08/18/24 07:57 MDM - Abdominal Pain Lab Data 08/18/24 08:07 08/18/24 08:07 Labs: Lab Results 08/18/24 Range/Units 08:07 WBC 12.0 H (4.5-10.0) K/mm3 RBC 4.89 (4.2-5.4) M/mm3 Hgb 15.8 H (12.0-15.0) g/dL Hct 46.2 (37.0-47.0) % MCV 94.5 (80-100) fl MCH 32.3 (26-34) pg MCHC 34.2 (32-36) g/dl RDW 12.0 (11.5-14.5) % Plt Count 307 (150-375) k/mm3 MPV 11.2 H (7.4-10.4) fl Immature Gran % (Auto) 0.8 H (0-0.5) % Neut % (Auto) 83.3 H (45.5-73.1) % Lymph % (Auto) 10.8 L (18.3-44.2) % [place] % (Auto) 4.9 (2.6-8.5) % Eos % (Auto) 0.0 (0-4.4) % Baso % (Auto) 0.2 (0.2-1.2) % Lymph # (Auto) 1.30 (0.9-3.2) K/mm3 [place] # (Auto) 0.6 (0.1-0.6) K/mm3 Eos # (Auto) 0.0 (0-0.3) K/mm3 Baso # (Auto) 0.0 (0.0-0.1) K/mm3 Abs Immat Gran (auto) 0.10 H (0.00-0.031) K/mm3 Absolute Neuts (auto) 10.0 H (1.3-6.7) K/mm3 Absolute Nucleated RBC 0.000 (0.0-0.012) K/mm3 Nucleated RBC % 0.0 (0.0-0.2) % Sodium 137 (137-145) mmol/L Potassium 4.1 (3.4-5.0) mmol/L Chloride 104 (98-107) mmol/L Carbon Dioxide 22 (22-30) mmol/L Anion Gap 11 (4-12) mmol/L BUN 13 (7-17) mg/dL Creatinine 0.96 (0.7-1.0) mg/dL Estim Creat Clear Calc 82 ml/min Estimated GFR > 60 (59 - ) Glucose 152 H (65-110) mg/dL Lactic Acid 3.7 H (0.7-2.0) mmol/L Calcium 8.6 (8.4-10.2) mg/dL Total Bilirubin 0.6 (0.2-1.3) mg/dL AST 20 (14-36) U/L ALT 25 (6-35) U/L Alkaline Phosphatase 68 (38-126) U/L Total Protein 7.0 (6.3-8.2) g/dL Albumin 3.7 (3.5-5.1) g/dL Lipase 82 (23-300) U/L Imaging Data Radiologist's impression: ITS Impressions Abdomen/Pelvis CT 08/18/24 10:05 Impression: Infectious/inflammatory small bowel enteritis with associated small to moderate abdominopelvic ascites. No evidence for bowel obstruction. Discharge Plan Discharge Clinical Impression: Enteritis Patient Disposition: Home, Self-Care Condition: Stable Instructions: Gastroenteritis (ED) Additional Instructions: Return to the emergency department if you develop severe abdominal pain, severe nausea and vomiting to the point where you are unable to keep down fluids, if you develop chest pain or difficulty breathing, blood in your stool, dizziness or fainting, or if you develop any other new or concerning symptoms as these could be signs of more serious medical illness. Try to stay well hydrated. You may want to see a GI doctor if this recurs. Patient Language: Romansh Prescriptions: New simethicone 125 mg capsule 125 mg PO QID Qty: 20 0RF Rx Instructions: administer after meals and at bedtime dicyclomine 20 mg tablet 20 mg PO QID Qty: 20 0RF ondansetron 4 mg tablet,disintegrating 4 mg PO Q6H PRN (Reason: nausea and vomiting) Qty: 10 0RF No Action Xolair 75 mg/0.5 mL auto-injector 75 mg subcut MONTHLY cholestyramine (with sugar) 4 gram powder 4 g PO DAILY Qty: 348.6 3RF Rx Instructions: administer w/meal; avoid other meds within 1hr before or 4-6hr after dose cholecalciferol (vitamin D3) 25 mcg (1,000 unit) capsule 25 mcg PO DAILY meloxicam 15 mg tablet 15 mg PO DAILY PRN (Reason: Pain) lisinopril 20 mg tablet 40 mg PO DAILY fexofenadine [Sadaf Allergy] 60 mg Tablet 20 mg PO BID famotidine 10 mg tablet,chewable 10 mg PO DAILY ondansetron 4 mg tablet,disintegrating 4 mg PO Q8H PRN (Reason: nausea and vomiting) Qty: 15 0RF dicyclomine 20 mg tablet 20 mg PO TID PRN (Reason: abdominal pain) Qty: 30 0RF alum-mag hydroxide-simeth [Maalox Advanced] 200-200-20 mg/5 mL suspension 10 ml PO QID PRN (Reason: dyspepsia) Qty: 300 0RF Rx Instructions: administer between meals and at bedtime ondansetron 4 mg tablet,disintegrating 4 mg PO Q8H PRN (Reason: nausea and vomiting) Qty: 20 0RF omeprazole 40 mg capsule,delayed release(DR/EC) 40 mg PO DAILY Qty: 14 0RF Sadaf See Rx Instructions .ROUTE .COMPLEX Rx Instructions: BID norethindrone ac-eth estradiol [Yen] 1.5-30 mg-mcg tablet 1 tablet PO DAILY epinephrine 0.3 mg/0.3 mL auto-injector 0.3 mg subcut DAILY PRN (Reason: reaction) Flonase 1 inh intranasal DAILY Xifaxan 550 mg tablet 550 mg PO TID Qty: 42 1RF Follow-up/Referrals: Paula Webster RD [Primary Care Provider] - 1 Week Sebastian Flores MD [Physician] - 2 Weeks
[2024-08-18] MEDS: fentaNYL CITRATE INJ (*CRX) 100 MCG/2 ML VIAL 50 MCG IV PUSH (08:10)
[2024-08-18] MEDS: ONDANSETRON INJ 4 MG/2 ML VIAL IV PUSH (08:10)
[2024-08-18] MEDS: SODIUM CHLORIDE 0.9% IV 1,000 ML 999 ML IV CONT ×2 (08:10→10:58)
[2024-08-18 08:18] LABS: Basophils Percent Auto 0.2 % (0.2-1.2); Hematocrit 46.2 % (37.0-47.0); Hemoglobin 15.8 g/dL (12.0-15.0); Immature Granulocyte Percent A 0.8 % (0-0.5); Lymphocytes Percent Auto 10.8 % (18.3-44.2); Mean Corpuscular HGB Conc 34.2 g/dl (32-36); Mean Corpuscular Hemoglobin 32.3 pg (26-34); Mean Corpuscular Volume 94.5 fl (80-100); Mean Platelet Volume 11.2 fl (7.4-10.4); Monocytes Absolute Auto 0.6 K/mm3 (0.1-0.6); Monocytes Percent Auto 4.9 % (2.6-8.5); Neutrophils Percent Auto 83.3 % (45.5-73.1); Platelet Count Result 307 k/mm3 (150-375); Red Blood Count 4.89 M/mm3 (4.2-5.4)
[2024-08-18 08:23] LABS: Lactic Acid Reflex 3.7 mmol/L (0.7-2.0)
[2024-08-18 08:35] LABS: Alanine Aminotransferase 25 U/L (6-35); Albumin Level 3.7 g/dL (3.5-5.1); Alkaline Phosphatase 68 U/L (38-126); Anion Gap 11 mmol/L (4-12); Aspartate Amino Transferase 20 U/L (14-36); Bilirubin,Total 0.6 mg/dL (0.2-1.3); Blood Urea Nitrogen 13 mg/dL (7-17); Calcium 8.6 mg/dL (8.4-10.2); Carbon Dioxide 22 mmol/L (22-30); Chloride 104 mmol/L (98-107); Estimated CRCL calculation 82 ml/min; Estimated Glomerular Filt Rate > 60; Glucose 152 mg/dL (65-110); Lipase 82 U/L (23-300); Potassium 4.1 mmol/L (3.4-5.0); Sodium 137 mmol/L (137-145)
[2024-08-18] MEDS: DICYCLOMINE HCL INJ 20 MG/2 ML VIAL IM (09:31)
[2024-08-18] MEDS: SIMETHICONE 125 MG CHEW TAB PO (09:46)
[2024-08-18 11:11] LABS: Reflex Lactic Acid Yes or No Add Lactic
[2024-08-18 11:54] LABS: Lactic Acid 1.3 mmol/L (0.7-2.0)
== END 2024-08-18 12:48 | disposition home or self-care (01) ==
PROVIDERS: Emergency Provider Emergency Medicine
DX: K52.9 Noninfective gastroenteritis and colitis, unspecified (principal); I10 Essential (primary) hypertension; K21.9 Gastro-esophageal reflux disease without esophagitis; Z87.442 Personal history of urinary calculi; Z87.891 Personal history of nicotine dependence; Z90.49 Acquired absence of other specified parts of digestive tract; Z79.899 Other long term (current) drug therapy; Z79.620 Long term (current) use of immunosuppressive biologic
CPT/HCPCS: 36415; 74177; 80053; 83605; 83690; 85025; 96361; 96372; 96374; 96375; 99284; A9270; J0500; J2405; J3010; J7030; Q9967

== ENCOUNTER 2024-09-14 14:33 | Outpatient (CLI) | payer BC, SELFPAY ==
--- NOTE | ~2024-09-14 | MM_ITS ---
EXAMINATION: MM screening ruby BI w ruchi HISTORY: Screening TECHNIQUE: Craniocaudal and mediolateral oblique 3-D tomosynthesis images were obtained and synthetic 2-D images were generated. CAD analysis was submitted and interpreted. COMPARISON: Comparison to multiple prior studies sequentially, with oldest reviewed study dated 03/28. BREAST PARENCHYMAL COMPOSITION: Not dense: There are scattered areas of fibroglandular density. FINDINGS: There is no evidence of suspicious mass, calcification, or architectural distortion to sugg est malignancy in either breast. There has been no suspicious interval change. IMPRESSION: 1. No mammographic evidence of malignancy. 2. Recommend routine screening mammography in one year. BI-RADS Category 1: Negative Reviewed, dictated and finalized at location B.
== END 2024-09-14 14:34 | disposition home or self-care (01) ==
LOC: MICIMG 14:33
PROVIDERS: PCP Nurse Practitioner Women's Health; Visit Provider Nurse Practitioner Women's Health
DX: Z12.31 Encounter for screening mammogram for malignant neoplasm of breast (principal)
CPT/HCPCS: 77063; 77067

== ENCOUNTER 2024-10-29 09:04 | Outpatient (CLI) | payer BC, SELFPAY ==
--- NOTE | ~2024-10-29 | XR_ITS ---
EXAMINATION: XR small bowel follow through DATE: 10/29/2024 11:07 INDICATION: Bilious vomiting TECHNIQUE: Plywood Layup Line Core Layer radiograph(s) of the abdomen was/were obtained. Oral contrast was administered, and sequential radiographs of the abdomen were obtained until oral contrast was noted to be in the proxi mal colon. Spot fluoroscopic images of the small bowel were obtained. Fluoroscopy exposure time was 1 5 minutes. COMPARISON: None. FINDINGS: Plywood Layup Line Core Layer image demonstrates normal bowel gas pattern. Cholecystectomy clips in right upper quadrant. Tra nsit time from the stomach to proximal colon was approximately 15 minutes. There is normal caliber an d mucosal fold pattern throughout the small bowel. Terminal ileum is normal. No tethering or abnorm al mass effect observed upon the small bowel with real-time fluoroscopy. IMPRESSION: 1. Normal small bowel follow-through. Reviewed, dictated and finalized at location A.
--- OUTSIDE RECORDS SUMMARY | 2024-10-30 11:24 | XMS_ITS | Encounter Summary ---
Author Organization [facility] Address [address] [place] [address] Care Team Providers Care Wildlife Science Professor Name Role Phone Unavailable Primary Care Provider Unavailabl e Prior Encounters Date Type Department Care Team Description 07/19/2019 Converted 13x Documents [facility] [address] [place] [address] <No scans attached> 07/19/[address] [facility] [address] [place] [address] <No scans attached> Plan of Treatment Not on file Visit Diagnoses Not on file
--- OUTSIDE RECORDS SUMMARY | 2024-10-30 11:24 | XMS_ITS | Patient Health Record ---
Author Organization [facility] ([address]) Address [address] [place] [address] Care Team Providers Care Environmental Test Technician Name Role Phone Anish Webster Primary Care Provider UnavailKaleb Humphrey Unavailable [phone] Mario Alberto Torres Unavailable [phone] [facility], Provider Unavailable Unavailab le Allergies No Known Allergies Reason For Referral No Information Medications Medication SIG (Take, Route, Frequency, Duration) Notes Start Date End Date Status MONTELUKAST 10 mg 1 tab(s) orally once a day for 30 days Active Fexofenadine HCl 180 MG 1 tab(s) orally twice a day for 30 days Active FLUTICASONE NASAL 50 mcg/inh 2 spray(s) in each nostril twice a day for 30 days Active Fluticasone Propionate 50 MCG/ACT 2 spray(s) in each nostril BID for 30 day(s) Active XOLAIR 150 mg as directed 300 mg subcutaneously every 4 weeks for 28 days Active Lisinopril 20 MG 1 tab(s) orally once a day Active FEXOFENADINE 180 mg 1 tab(s) orally twice a day for 30 days Active Xolair 150 MG as directed 300 mg subcutaneously every 4 weeks for 28 days Active VITAMIN D3 10 mcg 1 tab(s) orally once a day for 30 day(s) patient takes 4000mcg daily Not-Taking Microgestin 1.5/30 1.5-30 MG-MCG 1 tab(s) orally once a day for 28 day(s) Active Augmentin 500-125 MG 1 tablet Orally every 12 hrs Active Vitamin B-12 100 MCG 1 tab(s) orally once a day for 30 day(s) Active CETIRIZINE 10 mg 1 tab(s) orally [...] 1 tab(s) orally once a day Not-Taking Vitamin D3 10 MCG 1 TAB(S) ORALLY ONCE A DAY for 30 DAY(S) patient takes 4000mcg daily *Please review and pick correct strength-formula tion from Lamsa options. If intended option is not shown, discontinue and re-order from Quick Search* Active Wegovy 0.5 MG/0.5ML 0.5 mL Subcutaneous Active CETIRIZINE 10 mg 1 tab(s) orally twic e a day for 30 days Not-Taking FLUTICASONE NASAL 50 mcg/inh 2 spray(s) in each nostril BID for 30 day(s) Not-Taking PEPCID 20 mg 1 tab(s) orally 2 times a day for 30 days Active MONTELUKAST 10 mg 1 tab(s) orally once a day for 30 days Not-Taking PEPCID 20 mg 1 tab(s) orally 2 times a day for 30 days Not-Taking VITAMIN B-12 100 mcg 1 tab(s) orally once a day for 30 day(s) Not-Taking FEXOFENADINE 180 mg 1 tab(s) orally twice a day for 30 days Not-Taking EPIPEN 2-RAPHAEL 0.3 mg as directed intramuscularly once for 30 days Active Pepcid 20 mg 1 tab(s) orally 2 times a day for 30 days Active AUVI -Q 0.3 mg as directed intramuscularly once for 30 days 10/20/2023 Not-Taking MICROGESTIN 1.5/30 30 mcg-1.5 mg 1 tab(s) orally once a day for 28 day(s) Not-Taking EpiPen 2-Raphael 0.3 mg as directed intramuscularly once for 30 days Active EPIPEN 2-RAPHAEL 0.3 mg as directed intramuscularly once for 30 days 10/20/2023 Not-Taking Montelukast Sodium 10 MG TAKE 1 TABLET BY MOUTH DAILY for 30 Active MONTELUKAST 10 mg 1 tab(s) orally once a day for 30 day(s) Not-Taking Immunizations Vaccine Route Administration Date Status Comme nts NOC Tdap Unknown 02/26/2017 Administered Portal Infor maricarmen Social History Tobacco Use: Social History Observation Description Date Details (start date - stop date) Never Smoker NA - NA Sex Assigned At : Social History Observation Description Sex Assigned At Female Tobacco Control (Standard) Question Answer Notes Tobacco use: Nonsmoker Problems Problem Type SNOMED Code ICD Code Onset Dates Problem Status W/U Status Risk Notes Problem Chronic rhinitis (75890807) Chronic rhinitis (J31.0) Active confirmed Problem Hypertrophy of nasal turbinates (J34.3) Active confirmed Problem Uncomplicated moderate persistent asthma (210087407) Moderate persistent asthma, uncomplicated (J45.40) Active confirmed Problem Uncomplicated severe persistent asthma (655599168) Severe persistent asthma, uncomplicated (J45.50) Active confirmed Problem Dermatographic urticaria (9836590) 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) Active confirmed Problem Urticaria (005674810) Other urticaria (L50.8) Active confirmed Problem Ingestion dermatitis caused by food (959317150) Dermatitis due to ingested food (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.2) Active confirmed Vital Signs Respiratory Rate 18 /min 11/17/2023 Oximetry 99 % 10/14/2024 Blood pressure diastolic 94 mm Hg 10/14/2024 Height 66 in 10/14/2024 Blood pressure systolic 141 mm Hg 10/14/2024 Weight 241.6 lbs 05/17/2024 BMI 38.99 kg/m2 05/17/2024 Encounters Encounter Location Date Provider Diagnosis [address] [address] 12/13/2023 Provider ZZ-Migration Other urticaria L50.8 and Hypertrophy of nasal turbinates J34.3 [facility] [address] [facility] [address] [place] [address] 11/17/2023 Kaleb Greff Dermatographic urticaria L50.3 ; Other urticaria L50.8 ; Hypertrophy of nasal turbinates J34.3 ; Chronic rhinitis J31.0 ; Dermatitis due to ingested food L27.2 and Elevated blood-pressure reading, without diagnosis of hypertension R03.0 [address] [address] 12/15/2023 Kaleb Greff Dermatographic urticaria L50.3 ; Other urticaria L50.8 ; Hypertrophy of nasal turbinates J34.3 ; Chronic rhinitis J31.0 ; Dermatitis due to ingested food L27.2 and Elevated blood-pressure reading, without diagnosis of hypertension R03.0 [facility] [address] [place], [place] [address] [address] [address] 01/13/2024 Kaleb Greff Dermatographic urticaria L50.3 ; Other urticaria L50.8 ; Hypertrophy of nasal turbinates J34.3 ; Chronic rhinitis J31.0 ; Dermatitis due to ingested food L27.2 and Elevated blood-pressure reading, without diagnosis of hypertension R03.0 [address] [address] 02/12/2024 Mario Alberto Win Other Urticaria L50. 8 [address] [address] 03/11/2024 Mario Alberto Win Other Urticaria L50. 8 [address] [address] 04/15/2024 Mario Alberto Win Other Urticaria L50. [address] [address] 05/17/2024 Kaleb Greff Dermatographic urticaria L50.3 ; Other urticaria L50.8 ; Hypertrophy of nasal turbinates J34.3 ; Chronic rhinitis J31.0 ; Dermatitis due to ingested food L27.2 and Elevated blood-pressure reading, without diagnosis of hypertension R03.0 [place] [address] [facility] [facility] [address] [address] 06/17/2024 Mario Alberto Win Other Urticaria L50. 8 [place] [address] [employer] [address] [address] 07/15/2024 Mario Alberto Win Other Urticaria L50. [address] [address] 08/12/2024 Mario Alberto Win Other Urticaria L50. [address] [address] 09/09/2024 Mario Alberto Win Other Urticaria L50. [address] [address] 10/14/2024 Mario Alberto Win Other Urticaria L50. [address] [address] 2024 Kaleb Marxeusebio [address] [address] 07/15/2024 Kaleb Garcia Other urticaria L50. 8 [facility] [address] [place] [address] 10/19/2024 Kaleb Garcia [facility] [address] [place] [address] 10/26/2024 Kaleb Garcia Assessments Encounter Date Diagnosis (ICD Code) Assessment Notes Treatment Notes Treatment Clinical Notes Section Notes 11/17/2023 Dermatographic urticaria (ICD-10 - L50.3) Dermatographism [...] L50.8) 08/12/2024 Other Urticaria (ICD-10 - L50.8) 09/09/2024 Other Urticaria (ICD-10 - L50.8) 10/14/2024 Other Urticaria (ICD-10 - L50.8) 05/17/2024 Hypertrophy [...] future when able to come off antihistamines. 12/15/2023 Chronic rhinitis (ICD-10 - J31.0) as above 11/17/2023 Chronic rhinitis (ICD-10 - J31.0) as above 01/13/2024 Chronic rhinitis (ICD-10 - J31.0) as above 05/17/2024 Chronic rhinitis (ICD-10 - J31.0) as above 05/17/2024 Dermatitis due to ingested food (ICD-10 - L27.2) Noted oral itching with ingestion of walnut, pecans, and Eureka nuts. Able to tolerate all other TNs/PN without issue. Denies any other symptoms at the time. History sounds more c/w with OAS though unable to confirm due to dermatographia on SPT. Consider ImmunoCAPs if issues persist 01/13/2024 Dermatitis due to ingested food (ICD-10 - L27.2) Noted oral itching with ingestion of walnut, pecans, and [place] nuts. Able to tolerate all other TNs/PN without issue. Denies any other symptoms at the time. History sounds more c/w with OAS though unable to confirm due to dermatographia on SPT. Consider ImmunoCAPs if issues persist 12/15/2023 Dermatitis due to ingested food (ICD-10 - L27.2) Noted oral itching with ingestion of walnut, pecans, and [place] nuts. Able to tolerate all other TNs/PN without issue. Denies any other symptoms at the time. History sounds more c/w with OAS though unable to confirm due to dermatographia on SPT. Consider ImmunoCAPs if issues persist 11/17/2023 Dermatitis due to ingested food (ICD-10 - L27.2) Noted oral itching with ingestion of walnut, pecans, and [place] nuts. Able to tolerate all other TNs/PN without issue. Denies any other symptoms at the time. History sounds more c/w with OAS though unable to confirm due to dermatographia on SPT. Consider ImmunoCAPs if issues persist 11/17/2023 Elevated blood-pressure reading, without diagnosis of [...] Other 04/15/2024 Other 06/17/2024 Other 07/15/2024 Other 08/12/2024 Other 09/09/2024 Other 10/14/2024 Other Plan Of Treatment Next Appt Details Provider Name:Sharon arroyo, 11/01/2024 02:15:00 PM, [address] [employer], [address], [place], [address], Provider Name:Mario Alberto Torres , 11/11/2024 08:30:00 AM, [address] [employer], [address], [place], [address], Provider Name:Sharon arroyo, 12/13/2024 10:00:00 AM, [address] [employer], [address], [place], [address], Insurance Providers Payer Name Payer Address Payer Phone Subscriber Number Group Number Insured Name Patient Relationship to Insured Coverage Start Date Coverage End Date [facility] [address] [place] [address] [id number] Melissa Deluna Self - patient is the insured [employer] [address] [place] [address] [id number] Melissa Deluna Self - patient is the insured Medical (General) History Medical History History ICD Code Vitamin D Deficiency Polycysistic Ovarian Syndrome Dermatitis due to ingested food L27.2 Hypertrophy of nasal turbinates J34.3 Chronic rhinitis J31.0 Dermatographic urticaria L50.3 Other urticaria L50.8 Surgical History Surgery Date(Month/Year) Gall bladder removal 12/28/2001 Invasive removal of kidney stone 014 Hospitalization History Reason Date(Month/Year) Infection Child 10/27/2001
--- OUTSIDE RECORDS SUMMARY | 2024-10-30 11:24 | XMS_ITS | CONTINUITY OF CARE DOCUMENT ---
Author Name mike mckeon Address Unknown Organization [facility] Address [address] [place] [address] [address] [place] [address] Phone [phone] Care Team Providers Care Head Of Loss Prevention Name Role Phone Glenn Moses MD Unavailable [phone] BIJAN ANTONY MD Unavailable [phone] BIJAN ANTONY MD Unavailable INSURANCE PROVIDERS Payer name Policy type / Coverage type [place] red constitution party ID [facility] [id number]
--- OUTSIDE RECORDS SUMMARY | 2024-10-30 11:24 | XMS_ITS ---
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 Name Role Phone Anish Webster Primary Care Provider UnavailKaleb Humphrey Unavailable [phone] Mario Alberto Torres Unavailable [phone] REASON FOR VISIT CIU follow-up, Xolair administration scheduled today, Needs evaluation for pre- Xolair health questionaire to assess health status and medication review Medications Medication SIG (Take, Route, Frequency, Duration) Notes Start Date End Date Status Microgestin 1.5/30 1.5-30 MG-MCG 1 tab(s) orally once a day for 28 day(s) Active Pepcid 20 mg 1 tab(s) orally 2 times a day for 30 days Active Auvi-Q 0.3 MG/0.3ML as directed intramuscularly once for 30 days 10/20/2023 Not-Taking Cetirizine HCl 10 MG 1 tab(s) orally twice a day for 30 days Not-Taking Montelukast Sodium 10 MG TAKE 1 TABLET BY MOUTH DAILY for 30 Active Fexofenadine HCl 180 MG 1 tab(s) orally twice a day for 30 days Active Fluticasone Propionate 50 MCG/ACT 2 spray(s) in each nostril BID for 30 day(s) Active Lisinopril 20 MG 1 tab(s) orally once a day Active Xolair 150 MG as directed 300 mg subcutaneously every 4 weeks for 28 days Active Vitamin B-12 100 MCG 1 tab(s) orally once a day for 30 day(s) Active AUVI -Q 0.3 mg as directed intramuscularly once for 30 days 10/20/2023 Not-Taking MICROGESTIN 1.5/30 30 mcg-1.5 mg 1 tab(s) orally once a day for 28 day(s) Not-Taking EPIPEN 2-SUE 0.3 mg as directed intramuscularly once for 30 days 10/20/2023 Not-Taking Vitamin D3 10 MCG 1 TAB(S) ORALLY ONCE A DAY for 30 DAY(S) patient takes 4000mcg daily *Please review and pick correct strength-formula tion from [employer] options. If intended option is not shown, [...] twice a day for 30 days Not-Taking FLUTICASONE NASAL 50 mcg/inh 2 spray(s) in each nostril BID for 30 day(s) Not-Taking CETIRIZINE 10 mg 1 tab(s) orally twic e a day for 30 days Not-Taking VITAMIN D3 10 mcg 1 tab(s) orally once a day for 30 day(s) patient takes 4000mcg daily Not-Taking LISINOPRIL 20 mg 1 tab(s) orally once a day Not-Taking MONTELUKAST 10 mg 1 tab(s) orally [...] 1 tablet Orally every 12 hrs Active MONTELUKAST 10 mg 1 tab(s) orally once a day for 30 day(s) Not-Taking MONTELUKAST 10 mg 1 tab(s) orally once a day for 30 days Active FLUTICASONE NASAL 50 mcg/inh 2 spray(s) in each nostril twice a day for 30 days Active EpiPen 2-Sue 0.3 mg as directed intramuscularly once for 30 days Active Social History Sex Assigned At : Social History Observation Description Sex Assigned At Female Vital Signs Blood pressure systolic 141 mm Hg 10/15/19 25 Blood pressure diastolic 94 mm Hg 025 Oximetry 99 % 10/14/2024 Height 66 in 10/14/2024 Encounters Encounter Location Date Provider Diagnosis [facility] [address] [address] 10/14/2024 Mario Alberto Torres Other Urticaria L50. 8 Assessments Encounter Date Diagnosis (ICD Code) Assessment Notes Treatment Notes Treatment Clinical Notes Section Notes 10/14/2024 Other Urticaria (ICD-10 - L50.8) 10/14/2024 Other Plan Of Treatment Next Appt Details Follow Up: As scheduled for Xolair, Reason: Provider Name:Sharon arroyo, 11/01/2024 02:15:00 PM, [address] [facility], [address] [place] [address], [phone], Provider Name:Mario Alberto Torres , 11/11/2024 08:30:00 AM, [facility], [address] [place] [address], [phone], Provider Name:Sharon arroyo, 12/13/2024 10:00:00 AM, [address] [facility], [address] [place] [address], [phone], Procedure Notes * Category Sub-Category Detail Notes XOLAIR (omalizumab) Administration Dosing Time / Vitals Salomón Lipscomb 10/14/2024 10:15:43 AM CDT > Dosage 300 mg (60 units) Location [facility], [place] Reaction None Frequency q 4 weeks AIE (epinephrine) on patient? yes Lot Number / Expiration Lot Number(s):[id number], Expiration Date:07/2025, Lot Number(s):[id number], Expiration Date:07/2025 Post-procedural check-out: Vital signs t aken 30 minutes after dosing administration: Safety: Staff verified pablo nt is carrying AIE (epinephrine) at all times given risk of anaphylaxis?: Yes Medication Source XOLAIR Source: Buy and Bill Source Verification:: Who pulled drug (p lease type staff name in notes)? Yuli Medical necessity for in-off ice administration: The patient or caregiver is not suitable , not competent or is physically unable to administer the XOLAIR product FDA-labeled for self-administration for the following reason(s):: patient or caregiver needs initial training on device, Patient or caregiver is unable to perform subcutaneous injections with proper technique or adhere to the prescribed dosing regimen Progress Notes * MIKIEBartolomelorenaDOB: 0 (44 yo F)Acc No.[id number]:10/14/2024 Xolair Only Patient: Melissa RUBY Provider: Dany Torres MD :1980 A ge:44 Y S ex:Female Date:10/14/2024 Address:[address] [place], [place] [id number] Pcp:Anish Webster Subjective: * Chief Complaints: * [...] 0.3 mg kit as directed intramuscularly once Pepcid 20 mg tablet 1 tab(s) orally 2 times a day EpiPen 2-Sue 0.3 mg kit as directed intramuscularly once FLUTICASONE NASAL 50 mcg/inh spray 2 spray(s) in each nostril twice a day MONTELUKAST 10 mg tablet 1 tab(s) orally once a day FEXOFENADINE 180 mg tablet 1 tab(s) orally twice a day XOLAIR 150 mg powder for injection as directed 300 mg subcutaneously every 4 weeks Augmentin 500-125 MG Tablet 1 tablet Orally [...] mg kit as directed intramuscularly once Taking Pepcid 20 mg tablet 1 tab(s) orally 2 times a day Taking EpiPen 2-Sue 0.3 mg kit as directed intramuscularly once Taking FLUTICASONE NASAL 50 mcg/inh spray 2 spray(s) in each nostril twice a day Taking MONTELUKAST 10 mg tablet 1 tab(s) orally once a day Taking FEXOFENADINE 180 mg tablet 1 tab(s) orally twice a day Taking XOLAIR 150 mg powder for injection as directed 300 mg subcutaneously every 4 weeks Taking Augmentin 500-125 MG Tablet 1 tablet Orally every 12 hrs Taking Wegovy 0.5 MG/0.5ML Solution Auto-injector 0.5 mL Subcutaneous Taking Vitamin D3 10 MCG TABLET 1 TAB(S) ORALLY ONCE A DAY , Notes to Pharmacist: patient takes 4000mcg daily *Please review and pick correct strength-formulation from [employer] options. If intended option is not shown, [...] directed intramuscularly once Objective: * Vitals: B P:141/94mm Hg, HR:56/min, Pulse Oximetry:99%, CU-Q2oL: 25, UAS7: 5, Ht: 66 in. Assessment: * Assessment: 1. O ther Urticaria - L50.8 (Primary) Plan: * Treatment: * Procedures: X OLAIR (omalizumab) Administration: Dosing Time / Vitals Salomón [place] 10/14/2024 10:15:43 AM CDT >. Dosage 3 00 mg (60 units). Location [facility]. Reaction N one. Frequency q 4 weeks. AIE (epinephrine) on patient? y es. Lot Number / Expiration L ot Number(s):[id number], Expiration Date:07/2025 , Lot Number(s):[id number], Expiration Date:07/2025. Post-procedural check-out: V ital signs taken 30 minutes after dosing administration:. Safety: S taff verified patient is carrying AIE (epinephrine) at all times given risk of anaphylaxis? Y es Medication Source X OLAIR Source B uangélica and Kendall ruiz Verification: W jim pulled drug (please type staff name in notes)? Yuli Medical necessity for in-general office assistant: T he patient or caregiver is not suitable, not competent or is physically unable to administer the XOLAIR product FDA-labeled for self-administration for the following reason(s): p atient or caregiver needs initial training on device, Patient or caregiver is unable to perform subcutaneous injections with proper technique or adhere to the prescribed dosing regimen * Procedure Codes: 9 6160 PT-FOCUSED HLTH RISK [id number] CHEMO, ANTI-NEOPL, SQ/IM, Units: 2.00 , Modifiers: 76 J2357 NOC Xolair 150 mg PFS, Units: 60.00 [...] Information: * Visit Code: * Procedure Codes: 38902 PT-FOCUSED HLTH RISK ASSMT. 36725 CHEMO, ANTI-NEOPL, SQ/IM. Units: 2.00. Modifiers: 76 J2357 NOC Xolair 150 mg PFS. Units: 60.00. Modifiers: JZ * Sign off status: Completed true * Provider: Dany Torres MD Date: 0 10/14/2024 Generated for Hernando duran/Brayan/Mitzy on: 0 10/30/2024 11:24 AM CDT History and Physical Notes * HPI (History [...]
--- OUTSIDE RECORDS SUMMARY | 2024-10-30 11:24 | XMS_ITS | Clinical Summary ---
Author Organization [facility] Address [address] [facility] [place] [address] Care Team Providers Care Solution Engineer Name Role Phone Unavailable Primary Care Provider [...]
--- OUTSIDE RECORDS SUMMARY | 2024-10-30 11:24 | XMS_ITS ---
Author Organization [facility] [place] ([address]) Address [address] [place] [address] Care Team Providers Care American Studies Professor Name Role Phone Anish Webster Primary Care Provider Kaleb Iverson [phone] REASON FOR VISIT Chronic care management Social History Sex Assigned At : Social History Observation Description Sex Assigned At Female Encounters Encounter Location Date Provider Diagnosis [address] [address] 10/26/2024 Kaleb Garcia Plan Of Treatment Next Appt Details Provider Name:Sharon arroyo, 11/01/2024 02:15:00 PM, [address] [facility], [address], [address], Provider Name:Mario Alberto Torres , 11/11/2024 08:30:00 AM, [address] [facility], [address], Provider Name:Sharon arroyo, 12/13/2024 10:00:00 AM, [address] [facility], [place], [address], Progress Notes * Melissa ELIDOB: 0 (44 yo F)Acc No.[id number]:10/26/2024 Patient: Madhu Melissa GUPTA :1980 A ge:44 Y S ex:Female Address:[address] [place] [phone] * true * Date: Generated for Hernando duran/Brayan/Mitzy on: 0 10/30/2024 11:24 AM CDT
--- OUTSIDE RECORDS SUMMARY | 2024-10-30 11:25 | XMS_ITS | Data Portability ---
Author Organization [place] - [facility] [email or web address], Main Office Address [address] [place] [address] Care Team Providers Care Project Architect Name Role Phone ROSALBA BELLE Primary Care Provider ROSALBA BELLE Referring Provider [phone] Assessment Encounter Date Assessment Date Assessment LastModified by Organization Details LastModified Time 10/27/2023 10/27/2023 Flu shot: 03/2023 COVID vaccines: [...] recorded. Lab lipid panel, serum 2022 023 [facility] (Lab), [address] [place], [address], 08:16:03 lipid panel, serum 2022 023 [email or web address] [facility] (Lab), [address] [place], [address], 3 07:59:04 Referral None recorded. Procedures None recorded. Surgeries None recorded. Imaging None recorded. Medication Orders amoxicillin 875 mg-potassiu m clavulanate 125 mg tablet 2024 025 [facility] #[id number], [address], [place], [place], [id number], 5 17:22:44 Medrol (Raphael) 4 mg tablets in a dose pack 2024 025 [facility] #11217, [address], [place], [place], [id number], 5 17:22:44 lisinopril 40 mg tablet 2024 025 [facility] #12054, [address], [place], [place], [id number], 5 17:25:53 meloxicam 15 mg tablet 2023 024 [facility] #58587, [address], [place], [place], [id number], 4 16:06:34 Wegovy 0.25 mg/0.5 mL subcutaneou s pen injector [address] [facility] #06849, [address], [place], [place], [id number], 4 15:21:54 lisinopril 20 mg tablet [address] [facility] #17084, [address], [place], [place], [id number], 5 17:09:41 Patient TargetsNo targets recorded. Patient Instructions Encounter Date Encounter Id Patient Instructions Last Modified By Organization Details Last Modified Time 01/17/2023 [id number] FU in 3 mo for b p eval, hyperlipidemia, obese Not available 01/17/2023 09:29:24 04/18/2023 [id number] FU in 3 mo for b p eval, hyperlipidemia, obese Not available 04/18/2023 08:13:22 03/03/2024 [id number] sciatica: exercises [email or web address] Not available 03/03/2024 15:59:20 [...] homebound status*}} Required Home Health Services: {{none* [facility], physical therapy, occupational therapy [facility], physical therapy [facility]}} Durable Medical Equipment needed: {{cane walker wal ker with seat manual wheelchair bedsid e commode oxygen no ne#}} Billing Guidelines CPT code 73866- Transitional Care Management services with moderate medical decision complexity (gzkr-us-veup visit within 14 days of discharge). CPT code 94999- Transitional Care Management services with high medical decision complexity (kvjo-qs-yhyo visit within 7 days of discharge). [email or web address] Not available 03/03/2024 15:59:06 Reason for Referral None Reported. Results Created Date Observation Date Name Description Value Unit Range Abnormal Flag Note LastModifiedBy Organization Detail LastModifiedTime 12/19/19 23 12/18/2022 urina lysis , dipst ick Leukocytes (reference range: negative emmanuelle/ l) Trace Not Available [facility] [address], [place], [address], 12/18/2022 09:46:38 12/19/1912/18/2022 urina lysis , dipst ick Nitrite (reference rage: negative mg/dl) negati ve Not Available [address], [address], 12/18/2022 09:46:38 12/19/19 23 12/18/2022 urina lysis , dipst ick Urobilinogen (reference range: 0.2-1 mg/dl) 0.2 Not Available [address], [address], 12/18/2022 09:46:38 12/19/1912/18/2022 urina lysis , dipst ick Protein (reference range: negative mg/dl) Trace Not Available [address], [address], 12/18/2022 09:46:38 12/19/19 23 12/18/2022 urina lysis , dipst ick pH (reference range: 5-7) 6.0 Not Available [address], [address], 12/18/2022 09:46:38 12/19/19 23 12/18/2022 urina lysis , dipst ick Blood (reference range: negative Chano/ l) Modera te Not Available [address], [address], 12/18/2022 09:46:38 12/19/19 23 12/18/2022 urina lysis , dipst ick Specific [place] (reference range: 1.005-1.030) 1.030 Not Available [address], [address], 12/18/2022 09:46:38 12/19/19 23 12/18/2022 urina lysis , dipst ick Ketone (reference range: negative mg/dl) Negati ve Not Available [address], [address], 12/18/2022 09:46:38 12/19/19 23 12/18/2022 urina lysis , dipst ick Bilirubin (reference range: negative mg/dl) Negati ve Not Available [address], [address], 12/18/2022 09:46:38 12/19/19 23 12/18/2022 urina lysis , dipst ick Glucose (reference range: negative mg/dl) Negati ve Not Available [address], [address], 12/18/2022 09:46:38 12/19/19 23 12/18/2022 urina lysis , dipst ick Appearance Clear Not Available [address], [address], 12/18/2022 09:46:38 12/19/19 23 12/18/2022 urina lysis , dipst ick Color Yellow Not Available [address], [address], 12/18/2022 09:46:38 12/19/19 XR, abdom en, 1 view [facility] [address] [facility] [place] [address] Patien t Name: LADONNA ELI Access ion #: [id number] Sex: F : 1979 2 Locati on: RA2 Attend [facility] Physic shay: EDGARDO BELLE LE Orderi ng Physic shay: EDGARDO BELLE KULDEEP Exam Date: 023 11:27 AM Exam Name: [...] shira clips noted. Page 1 of 2 [facility] Pati t Name: LADONAN ELI Access ion #: [id number] Sex: F : 1979 2 Exam [...] 1:35 PM (CT) Page 2 of 2 [email or web address] (Im[facility] [address] [place], [address], 12/18/2022 15:33:37 04/04/2004/04/2024 CT, abdom en + pelvi s, w/ contr ast No observ ation record ed. [email or web address] [facility] [address], [place], [address], 04/05/2024 08:42:49 05/08/20 24 05/07/2024 CT, abdom en + pelvi s, w/ contr ast No observ ation record ed. [facility] [address], [place], [address], 05/10/2024 16:35:41 Result Notes None recorded. Problems Name Problem SNOMED Code Status Onset Date Resolution Date Notes Provider Name and Address Organization Details Recorded Time Plantar fasciitis of right foot 07174512012 436326 Active 2021 Not Available [facility] 3 07:30:32 Bacterial conjuncti vitis 447406194 Completed Not Available [facility] 3 07:30:32 Bronchiti s 60960086 Active 2021 Not Available [facility] 3 07:30:32 Strain of neck muscle 420851146 Completed 201602/26/2017 Not Available [facility] 3 07:30:32 Disorder of vitamin D 425906419 Completed Not Available [facility] 3 07:30:32 Dizziness 988592484 Completed 201602/26/2017 Not Available [facility] 3 07:30:32 Obese 330583705 Active 2016 Not Available [facility] 3 07:30:32 Obesity 879357613 Active 2016 Not Available [facility] 3 07:30:32 Itching of skin 260475877 Active 2017 Not Available [facility] 3 07:30:32 History of calculus of kidney 836315015 Active 2016 Not Available [facility] 3 07:30:32 Laryngiti s 68909658 Active 2021 Not Available [facility] 3 07:30:33 Cough 52146932 Active 2021 Not Available [facility] 3 07:30:33 Renal colic 5821052 Completed Not Available [facility] 3 07:30:33 Diabetes mellitus 33965016 Completed Not Available [facility] 3 07:30:33 Ex-smoker 7430553 Active 2016 Not Available [facility] 3 07:30:33 Kidney stone 99874691 Active Not Available [facility] 3 07:30:33 Family history of cancer of colon 534501493 Active 2022 Rosalba Belle NP [address], [place], [address] , [place] [facility] 3 09:43:59 Family history of breast cancer 796250765 Active 2022 Rosalba Belle NP [address], [place], [address] , [email or web address] [place] [facility] 3 09:44:01 Spasm of urinary bladder 174880842 Active 2022 Rosalba Belle NP [address], [place], [address] , [place] [facility] 3 09:46:27 Hyperlipi demia 23439439 Active 2022 Rosalba Belle NP [address], [place], [address] , [email or web address] [place] [email or web address] [facility] 3 07:49:48 Essential hypertens ion 20939296 Active 2022 Rosalba Belle NP [address], [place], [address] , [place] [facility] 3 07:50:58 Polycysti c ovary syndrome 653774730 Active 2022 Rosalba Belle NP [address], [place], [address] , [place] [facility] 3 09:09:39 Seasonal allergic rhinitis 026685016 Active 2022 Rosalba Belle NP [address], [place], [address] , [place] [facility] 3 08:16:24 Pain of left knee joint 79889852354 4107 Active 2023 SARAHY Peguero [address], [place], [address] , [place] - [facility] [employer] [facility] 4 16:00:57 Strain of adductor muscle of thigh 545346380 Active 2023 SARAHY Peguero [address], [place], [address] , [place] - [email or web address] [facility] 15:43:27 Streptoco ccal sore throat 80320767 Active 2024 SARAHY Peguero [address], [place], [address] , [facility] - [email or web address] [facility] 5 17:19:57 Problem Notes None recorded. Procedures Surgical History Date Name Laterality Status Provider Name and Address Organization Details Recorded Time 03/03/20 24 Transitional_Ca re_Management completed SARAHY Peguero [address], [place], [address], [place] [facility] [employer] [facility] 03/03/2024 15:58:43 04/17/20 23 Most Recent Mammogram completed Rosalba Brandt RN [place] [facility] [email or web address] 04/18/2023 09:36:28 06/30/19 02 Gallbladder Surgery completed Not Available [facility] 08/28/2022 07:26:44 Imaging Results Imaging Date Name Status LastModified by Organiz ation Details LastModified Time 12/18/2022 XR, abdomen, 1 view completed [facility] (Im[facility]) [address], [place], [address], 12/18/2022 15:33:37 04/04/2024 CT, abdomen + pelvis, w/ contrast completed [address] [place] [address], [address], 04/05/2024 08:42:49 05/07/2024 CT, abdomen + pelvis, w/ contrast completed [address], [address], 05/10/2024 16:35:41 Procedure Notes None recorded. Medical [...] MOUTH EVERY 8 HOURS NEEDED FOR PAIN 10/20 completed Not Available Not Available Not Available meloxicam 15 mg tablet TAKE 1 TABLET BY MOUTH EVERY DAY NEEDED active Not Available Not Available No t Available lisinopri l 20 mg tablet TAKE 1 TABLET BY MOUTH EVERY DAY DIRECTED 10/20 completed Not Available Not Available Not Available Medrol (Raphael) 4 mg tablets in a dose pack take po as directed on label 2024 active Not Available Not Available Not Avai lable phentermi ne 15 mg capsule Take 1 capsule every day by oral route. active Not Available Not Available No t Available Zyrtec 10 mg tablet Take 1 tablet twice a day by oral route. 10/26 completed Not Available Not Available Not Available metronida zole 500 mg tablet TAKE 1 TABLET BY MOUTH EVERY 12 HOURS 10/20 completed Not Available Not Available Not Available phentermi ne 37.5 mg tablet Take 1 tablet every day by oral route. 02/20 completed Not Available Not Available Not Available allopurin ol 100 mg tablet Take 1 tablet every day by oral route for 30 days. active Not Available Not Available No t Available ciproflox acin 500 mg tablet TAKE 1 TABLET BY MOUTH EVERY 12 HOURS 10/20 completed Not Available Not Available Not Available omeprazol e 40 mg capsule,d elayed release TAKE 1 CAPSULE BY MOUTH DAILY 10/20 completed Not Available Not Available Not Available triamcino lone acetonide 0.1 % topical [...] completed Not Available Not Available Not Available dicyclomi ne 20 mg tablet TAKE 1 TABLET BY MOUTH FOUR TIMES DAILY 10/20 completed Not Available Not Available Not Available benzonata te 100 mg capsule TK 1 C PO TID FOR 7 DAYS PRN 02/26 completed Not Available Not Available Not Available hydrocodo ne 7.5 mg-acetam inophen 325 mg tablet TAKE 1 TABLET BY MOUTH EVERY 8 HOURS FOR 4 DAYS NEEDED FOR SEVERE PAIN 10/20 completed Not Available Not Available Not Available cyanocoba yancy (vit B-12) 1,000 mcg/mL [...] now. Not Available Not Available Not Available budesonid e DR - ER 3 mg capsule,d elayed,ex tended release TAKE 3 CAPSULES BY MOUTH DAILY active Not Available Not Available No t Available epinephri ne 0.3 mg/0.3 mL injection , auto-inje ctor INJECT 1 PEN IN THE MUSCLE ONE TIME DIRECTED active Not Available Not Available No t Available Pepcid 20 mg tablet Take 1 tablet twice a day by oral route. active Not Available Not Available No t Available levofloxa johnny 500 mg tablet active Not Available Not Available No t Available lisinopri l 40 mg tablet Take 1 tablet every day by oral route as directed for 90 days. 2024 active Not Available Not Available Not Avai lable ondansetr on 4 mg disintegr ating tablet DISSOLVE 1 TABLET ON THE TONGUE EVERY 6 HOURS NEEDED FOR NAUSEA OR VOMITING 10/20 completed Not Available Not Available Not Available fluticaso ne propionat e 50 mcg/actua [...] 6 HOURS NEEDED FOR NAUSEA OR VOMITING 10/20 completed Not Available Not Available Not Available amoxicill in 875 mg-potass ium clavulana te 125 mg tablet Take 1 tablet every 12 hours by oral route as directed for 7 days. 2024 active Not Available Not Available Not Avai lable amoxicill in 500 mg-potass ium clavulana te 125 mg tablet TK 1 T PO Q 12 H FOR 10 DAYS 10/07 completed Not Available Not Available Not Available Adult Low Dose Aspirin 81 mg tablet,de layed release Take 1 tablet every day by oral route. 04/19 completed Not Available Not Available Not Available .5 (28) 1.5 mg-30 mcg (21)/75 mg (7) [...] Available Not Available Xifaxan 550 mg tablet 10/20 completed Not Available Not Available Not Available Generess [...] mg/0.5 mL subcutane ous pen injector Inject 1 mg every week by subcutan eous route as directed for 28 days. 10/20 completed Not Available Not Available Not Available Wegovy 0.25 mg/0.5 mL subcutane ous pen injector ADMINIST ER 0.25 MG UNDER THE SKIN EVERY WEEK DIRECTED 03/03 completed Not Available Not Available Not Available Wegovy 0.5 mg/0.5 mL subcutane ous pen injector ADMINIST ER 0.5 MG UNDER THE SKIN EVERY WEEK 10/20 completed Not Available Not Available Not Available Zepbound 2.5 mg/0.5 mL subcutane ous [...] Updated DateTime 3 170.18 cm 38.9 kg/m2 695611. 26 g 97.2 [degF] 87 /min 16 /min 96 % 96 % 0 122 mm[Hg] 78 mm[Hg] Rosalba Brandt RN [facility] [employer] [facility] 3 08:59:13 Date Recorded Body height Body mass index (BMI) Body weight Body temperature Heart rate Respiratory rate Oxygen saturation Oxygen saturation in Arterial blood by Pulse oximetry Pain severity - 0-10 verbal numeric rating [Score] - Reported Systolic blood pressure Diastolic blood pressure Provider Name and Address Organization Details Last Updated DateTime 3 170.18 cm 39.6 kg/m2 601008. 87 g 96.7 [degF] 92 /min 16 /min 97 % 97 % 0 142 mm[Hg] 98 mm[Hg] GAY Chao [facility] [employer] [facility] 3 09:34:25 Date Recorded Body height Body mass index (BMI) Body weight Body temperature Heart rate Respiratory rate Oxygen saturation Oxygen saturation in Arterial blood by Pulse oximetry Pain severity - 0-10 verbal numeric rating [Score] - Reported Systolic blood pressure Diastolic blood pressure Provider Name and Address Organization Details Last Updated DateTime 4 170.18 cm 40.3 kg/m2 977992. 04 g 96.9 [degF] 102 /min 20 /min 97 % 97 % 1 158 mm[Hg] 90 mm[Hg] Rosalba Brandt RN [facility] [employer] [facility] 4 15:35:55 Date Recorded Body height Body mass index (BMI) Body weight Body temperature Heart rate Respiratory rate Oxygen saturation Oxygen saturation in Arterial blood by Pulse oximetry Pain severity - 0-10 verbal numeric rating [Score] - Reported Systolic blood pressure Diastolic blood pressure Provider Name and Address Organization Details Last Updated DateTime 4 170.18 cm 37.7 kg/m2 090094. 97 g 98.4 [degF] 103 /min 24 /min 97 % 97 % 1 160 mm[Hg] 98 mm[Hg] Rosalba Brandt RN [place] [facility] [email or web address] 4 15:25:12 Date Recorded Body height Body mass index (BMI) Body weight Body temperature Heart rate Oxygen saturation Oxygen saturation in Arterial blood by Pulse oximetry Pain severity - 0-10 verbal numeric rating [Score] - Reported Respiratory rate Systolic blood pressure Diastolic blood pressure Provider Name and Address Organization Details Last Updated DateTime 5 170.18 cm 38.5 kg/m2 259692. 93 g 97.3 [degF] 102 /min 99 % 99 % 1 24 /min 180 mm[Hg] 130 mm[Hg] Rosalba Brandt RN [place] [email or web address] 5 17:12:35 Social History Question Answer Notes LastModified by Organizat ion Details LastModified Time Tobacco Smoking Status Never Smoker Not Available [facility] 08/28/2022 07:26:32 Do You Have An Advance Directive? No Information not available 12/18/2022 What Is Your Level Of Alcohol Consumption? Occasional [id number] Information not available 08/28/2022 If You Are , What Was Your Level Of Alcohol Consumption Prior To ? Occasional MIGRATION.17007 97942 Information not available 08/28/2022 Is Blood Transfusion [...] COVID-19 While That Case Was Ill? No MIGRATION.34592 28922 Information not available 08/28/2022 In The 14 Days Before Symptom Onset, Have You Had Close Contact With A Person Who Is Under Investigation For COVID-19 While That Person Was Ill? No MIGRATION.42731 [id number] Information not available 08/28/2022 What Type Of Diet Are You Following? 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 No MIGRATION.46345 85768 Information not available 08/28/2022 What Is The Fluoride Status Of Your Home? Fluoridated MIGRATION.95869 06764 Information not available 08/28/2022 Do You Use Insect Repellent Routinely? Yes MIGRATION.75743 18657 Information not available 08/28/2022 Where Do You Live? [place] MIGRATION.14310 43767 Information not available 08/28/2022 Do You Have A Medical Power Of Escapement Maker? No Information not available 12/18/2022 How Many Children Do You Have? 0 Information not available 03/03/2024 Do You Have Any Pets? Yes MIGRATION.61662 56705 Information not available 08/28/2022 What Is Your Relationship Status? MIGRATION.67962 80632 Information not available 08/28/2022 Do You Use Your Seat Belt Or Car Seat Routinely? Yes Information not available 12/18/2022 Do You Have Smoke And Carbon Monoxide Detectors In Your Home? Yes MIGRATION.11870 76256 Information not available 08/28/2022 Are You Passively Exposed To Smoke? No MIGRATION.23869 29378 Information not available 08/28/2022 Are There Any Smokers In Your House? No MIGRATION.64190 71656 Information not available 08/28/2022 Do You Participate In Social Media? Yes MIGRATION.59567 91285 Information not available 08/28/2022 What Types Of Sporting Activities Do You Participate In? Walk Information not available 12/18/2022 Do You Feel Stressed (tense, Restless, Nervous, Or Anxious, Or Unable To Sleep At Night)? [id number] Information not available 10/27/2023 Do You Use Any Illicit Or Recreational Drugs? No MIGRATION.50381 63574 Information not available 08/28/2022 Do You Use Sunscreen Routinely? Yes MIGRATION.68534 16088 Information not available 08/28/2022 Have You Recently Traveled Abroad? No Information not available 12/18/2022 Are You Currently In School? No MIGRATION.65719 15566 Information not available 08/28/2022 Sex: Female Functional Status Question Answer Note LastModified by Organizat ion Details LastModified Time What is your exercise level? Occasional Information not available 12/18/2022 Mental Status None recorded. Family History Relationship Description Onset Age of this Age Resolved Age Notes LastModified by Organization Details LastModified Time Mother Malignant tumor of breast [id number] Not available 08/28/2022 07:26:45 Notes:hyper and hypotension [...] HAVE YOU BEEN HOSPITALIZED OR SEEN IN [facility] IN THE PAST YEAR ? Y [...] Statement/Question Response Flow Light Date of LMP 10/20/2024 Duration of Flow (days) 4 Current Control [...] quadrivalent, PF 3 completed Rosalba Brandt RN null, [place] - [facility] [employer] 04/18/2023 11:21:41 Influenza, split virus, trivalent, preservative 5 completed Not Available [facility] 08/28/2022 07:34:51 Influenza, split virus, quadrivalent, preservative 9 completed Not Available [facility] 08/28/2022 07:34:51 Influenza, split virus, quadrivalent, preservative 8 completed Not Available [facility] 08/28/2022 07:34:51 Influenza, split virus, quadrivalent, preservative 7 completed Not Available [facility] 08/28/2022 07:34:51 Influenza, split virus, trivalent, preservative 6 completed Not Available [facility] 08/28/2022 07:34:51 Tdap 7 completed Not Available [facility] 08/28/2022 07:34:51 Past Encounters Encounter ID Performer Location Encounter Start Date Encounter Closed Date Diagnosis/Indication Diagnosis SNOMED-CT Code Diagnosis ICD10 Code Diagnosis Note [id number] Anish Webster MD [facility]_[address] [address] 11/14/2021 00:00:00 11/14/2021 10:35:00 [id number] Anish Webster MD [address] [address] 04/19/2022 00:00:00 04/19/2022 15:24:46 [id number] Griffin Hall DPM _ATHENA_M IGRATION_ DEFAULT_1 _1 , 06/03/2022 00:00:00 06/03/2022 15:35:[id number] Griffin Hall DPM [facility] [place] [address] [place] [address] 07/08/2022 00:00:00 07/08/2022 12:08:10 [id number] Griffin Hall DPM [facility] [place] [address] [place] [address] 08/05/2022 00:00:00 08/05/2022 15:32:[id number] DPM [facility] [place] [address] [place] [address] 09/09/2022 14:04:36 09/09/2022 14:47:25 Plantar fasciitis of right foot 2285087254 2810832 M72.2 90% improvedEd ucated on shoe gear, orthotics, physical therapyCon tinued at-home physical therapyrec ommend night splintReco mmend physical therapy -- does not want to go due to scheduledf ollow-up as needed [id number] Rosalba Belle NP [address] [address] 12/18/2022 08:45:45 12/18/2022 09:59:59 Adult health examination 295965523 Z00.00 Encouraged well balanced meals, active lifestyle, and routine vision and dental appts. Obese 067740380 E66.9 Continue brisk walking 4 days weekly for 45 min continuous . Reduce carbs and sugar. Discussed in depth to dring 64 ounces water, minimum. Avoid large meals. Anemia screening 4137434 07 Z13.0 Diabetes m ellitus screening 159952461 Z13.1 Thyroid di sorder screening 384172984 Z13.29 Hyperlipid emia screening 379847121 Z13.220 Family his tory of cancer of colon 368286832 Z80.0 Colonoscop y done 4051-3925. Family his tory of breast cancer 744642243 Z80.3 Seeing [employer]. Spasm of u rinary bladder 373650950 N32.89 urine dip + blood. KUB ordered. [id number] Rosalba Belle NP [place] [address] 01/17/2023 08:49:55 01/17/2023 09:31:31 Obese 996032802 E66.9 Continue brisk walking 4 days weekly for 45 min continuous . Reduce carbs and sugar. Discussed in depth to drink 64 ounces water, minimum. Avoid large meals. Hyperlipidemia 64864705 E78.5 Low fat diet. Stay active. Essential hypertension 99309653 I10 < 2 gm sodium diet.Weigh t management advised and encouraged .Avoid caffeine.I mproved with relaxation . Polycystic ovary syndrome 624814446 E28.2 Seeing [employer]. [id number] Rosalba Belle NP [place] [address] 04/18/2023 09:20:45 04/18/2023 10:19:34 Essential hypertension 64762923 I10 < 2 gm sodium diet.Weigh t management advised and encouraged .Avoid caffeine.I mproved with relaxation . Hyperlipidemia 55628171 E78.5 Low fat diet. Stay active. Obese [id number] E66.9 Continue brisk walking 4 days weekly for 45 min continuous . Reduce carbs and sugar. Discussed in depth to drink 64 ounces water, minimum. Avoid large meals. Polycystic ovary syndrome [id number] E28.2 Seeing [employer]OL [employer]ER. Seasonal a llergic rhinitis 902181923 J30.2 flonase, montelukas t Administra tion of influenza vaccine 20478813 Z23 flu shot [id number] Anish Webster MD [facility]_[address] [address] 10/27/2023 15:13:58 10/27/2023 16:06:59 Essential hypertension 46659835 I10 Obesity 601249519 E66.9 Pain of le ft knee joint 5762942821 19292 M25.485 [id number] Anish Webster MD [address] [address] 03/03/2024 15:16:07 03/03/2024 16:09:34 Transition of care [id number] 105 Z75.8 Patient scheduled to see GI Essential hypertension 73428492 I10 Will take 2 20 mg lisinopril until she runs out to trail 40 mg Strain of adductor muscle of thigh 867025808 S76.211D [id number] SARAHY Peguero [address] [address] 10/20/2024 16:56:14 10/20/2024 17:24:44 Streptococcal sore throat 84761462 J02.0 Erythema and exudate present Cough 09521410 R05.9 Moderate to severe, minor wheeze Essential hypertension 59725348 I10 Uncontroll ed today, she will start BP log at home and report average readings back next Friday.Adv sied adding additional med, pt declines Health Concerns Section Related Observation LastModified by Organization Detai ls LastModified Time None Recorded Concern Status LastModified by Organization Details LastModified Time None Recorded Advance Directives Directive N: Payers Encounter Date Sequence Insurance Name Policy Number Policy Meléndez Covered Member ID Meléndez Member ID Guarantor Name 01/17/2023 1 [employer]) 113 Melissa Eli [id number] Melissa Eli 04/18/2023 1 [place] 113 Melissa Eli [id number] Mleissa Eli 10/27/2023 1 [place] 113 Melissa Eli [id number] Melissa Eli 03/03/2024 1 [place] 113 Melissa Eli [id number] Melissa Eli 10/20/2024 1 [employer] [employer] [place] [place] 113 Melissa Eli [id number] Melissa Eli Notes Date Note Type Note Provider Name and Address Organization Details Recorded Time 01/17/2023 text/html Here for 1 mo fu on raised BP. Did get labs and found high lipid. Diet and lifestyle mods recommended. Elevated BP- Improved today. Just back from vacation.Obese- Same as 1 mo ago. Has appt set up with cellar packer in [place], [place] for January.Mammogram ordered prev, scheduled for Feb 2023.WWE with Dina due for April 04, 2023. Rosalba Belle NP [address] [facility], [facility] [address], [place], [address], [facility] [email or web address] 01/17/2023 09:29:56 04/18/2023 text/html Here for 6 mo fu . Hyperlipidemia- Trying to improve diet.HTN- Stable.Obese- increased a bit.allergies- stable. Flonase prn.Has been diagnosed with Demographic urticaria. Started on flonase, zyrtec bid, pepcid bid, montelukast. Vision- utdDental-utd Mammogram done 04/17/23.WWE rescheduled April. Rosalba Belle NP [address] [facility], [place], [address], [employer] [facility] [email or web address] 04/18/2023 09:59:26 10/27/2023 text/html Melissa Eli i s a 43 year old female patient here to transition care. She was previously under the care of Rosalba Belle DNP. Her past medical history is significant for seasonal allergies. She is seeing an cellar packer. She is currently taking Sadaf, flonase, montelukast [...] in 04/17/2023, [facility]: 04/04/2023 SARAHY Peguero [address], [place], [address], [employer] 10/27/2023 16:06:32 03/03/2024 text/html Melissa Eli i s a 44 year old female patient here today for an hospital FU. She went to the ER on 02/27 with nausea and left sided pain. Was admitted for SB infection and inflammation. Had a bowel study due to lack of bowel movement.Has a FU colonoscopy in 10-03, awaiting insurance pre-auth. Will be done with [facility]. After discharge has been sluggish, fatigued, and had mild discomfort. Able to eat and keep food down, is having bowel movement. We started lisinopril in September, since her BP has still been high. Will increase lisinopril to 40 mg PO daily SARAHY Peguero [address], [place], [address], [employer] 03/03/2024 15:59:23 10/20/2024 text/html Melissa Eli i s a 44 year old female patient here today for a sick visit Notes that 0n 10/16 she felt her throat and soft palate were sore. She then began to have a cough on 10/18, states she could not finish an interview at work due to cough. 10/19 notes white spots on her tonsils. SARAHY Peguero [address], [place], [address], [email or web address] [facility] 10/20/2024 17:26:04 OBGyn Episode No OBEpisode recorded.
--- OUTSIDE RECORDS SUMMARY | 2024-10-30 11:25 | XMS_ITS ---
Author Organization [facility] [place] ([address]) Address [address] [place] [address] Care Team Providers Care Order Entry Administrator Name Role Phone Anish Webster Primary Care Provider Kaleb Iverson [facility] [phone] REASON FOR VISIT 10/19 [employer] [place] Social History Sex Assigned At : Social History Observation Description Sex Assigned At Female Encounters Encounter Location Date Provider Diagnosis [address] [address] 10/19/2024 Kaleb Garcia Plan Of Treatment Next Appt Details Provider Name:Sharon arroyo, 11/01/2024 02:15:00 PM, [address] [employer], [address], [address], Provider Name:Mario Alberto Torres , 11/11/2024 08:30:00 AM, [address] [employer], [facility] [address], [place], [address], Provider Name:Sharon arroyo, 12/13/2024 10:00:00 AM, [address] [employer], [facility] [address], [place], [address], Progress Notes * Melissa ELIDOB: 0 (44 yo F)Acc No.[id number]:10/19/2024 Patient: Melissa RUBY :1980 A ge:44 Y S ex:Female Address:[address] [place] [phone] * true * Date: Generated for Hernando duran/Brayan/Ashlieitting on: 0 10/30/2024 11:25 AM CDT
== END 2024-10-29 09:05 | disposition home or self-care (01) ==
PROVIDERS: PCP Nurse Practitioner Women's Health; Visit Provider Nurse Practitioner Family
DX: R11.14 Bilious vomiting (principal); K52.9 Noninfective gastroenteritis and colitis, unspecified; R10.30 Lower abdominal pain, unspecified
CPT/HCPCS: 74250